=== PATIENT | male | born 1980 | race Caucasian/White ===

== ENCOUNTER 2019-12-31 12:27 | Inpatient (IN) | payer OTHER ==
[~2019-12-31] VITALS: Ht 177.8 cm; Wt 59.6 kg
[~2019-12-31 12:27] MED LIST: ACHD5005 PO; ALPR.25T GT; ALPR0.25 PO; ALPR0.254 PO; AZIT250T PO; CEPH500C PO; Citalopram Hydrobromide PO; HYDR-34 PO; HYDR-3816 PO; HYDR-4226 PO; IBP800T PO; IBUP-15 PO; LVF500T PO; NFPRILOC40 PO; NICO1PAT16 TD; NICO1PAT6 TD; SULF1TAB35 PO
[2019-12-31] MEDS ORDERED: HYDROcodone/APAP 5 MG/325 MG (LORTAB) TAB PO ONE (12:45)
[2019-12-31] MEDS ORDERED: cefTRIAXone FOR IV USE 1,000 MG in WATER (STERILE) FOR INJECTION 10 ML IV ONE (12:45)
[2019-12-31] MEDS ORDERED: KETOROLAC 30 MG/ML VIAL IVP ONE (12:45)
[2019-12-31] MEDS ORDERED: SULF1TAB35 PO (12:46)
[2019-12-31] MEDS ORDERED: HYDR-4226 PO (12:46)
--- NOTE | 2019-12-31 12:47 | ED GU-Male ---
General Chief Complaint: Male Reproductive Stated Complaint: ABD PAIN Source: patient Exam Limitations: no limitations History of Present Illness Date Seen by Provider: Dec 31, 2019 Time Seen by Provider: 12:41 Initial Comments To ER accompanied by his mom with reports of right testicular pain that he awakened with this morning, the pain radiates up into the abdomen. No injury no fever no chills. Timing/Duration: just prior to arrival Severity/Quality: moderate Location: scrotal Radiation: none Activities at Onset: none Prior Genitourinary Problems: none Allergies and Home Medications Allergies Coded Allergies: No Known Drug Allergies (Unverified , 12/02/14) Home Medications Alprazolam 0.25 Mg Tablet, 0.25 MG PO Q8H PRN for ANXIETY, (Reported) Alprazolam 0.25 Mg Tablet, 0.25 MG PO Q8H PRN for ANXIETY Prescribed by: ZAFAR CRENSHAW on 06/22/181916 Azithromycin 250 Mg Tablet, 250 MG PO UD TAKE 2 TABLETS TODAY, THEN TAKE 1 TABLET DAILY FOR 4 MORE DAYS Prescribed by: JUNE AVERY on 07/18/162146 Hydrocodone Bit/Acetaminophen 1 Each Tablet, 1 EACH PO Q4H PRN for PAIN Prescribed by: GAYLE EDMONDSON on 10/05/15 133 Hydrocodone/Acetaminophen 1 Each Tablet, 1 EACH PO Q4H Prescribed by: JUNE AVERY on 07/18/162146 Hydrocodone/Acetaminophen 1 Each Tablet, 1 TAB PO Q4-6HR Do not fill unless Bactrim is also filled Prescribed by: JUNE AVERY on 12/31/19 124 Ibuprofen 800 Mg Tab, 800 MG PO TID PRN for PAIN Prescribed by: CRESENCIO DOVE on 12/12/14913 Nicotine 1 Each Patch.td24, 21 MG TD DAILY, (Reported) Sulfamethoxazole/Trimethoprim 1 Each Tablet, 1 EACH PO BID Prescribed by: GAYLE EDMONDSON on 10/05/15 1332 Sulfamethoxazole/Trimethoprim 1 Each Tablet, 1 EACH PO BID Prescribed by: JUNE AVERY on 12/31/19 1246 [Citalopram Hydrobromide] 20 MG TAB, 20 MG PO DAILY Prescribed by: CRESENCIO DOVE on 12/12/14913 Patient Home Medication List Home Medication List Reviewed: Yes Review of Systems Review of Systems Constitutional: see HPI EENTM: see HPI Respiratory: no symptoms reported Cardiovascular: no symptoms reported Genitourinary: see HPI Musculoskeletal: no symptoms reported Skin: no symptoms reported Psychiatric/Neurological: No Symptoms Reported Endocrine: No Symptoms Reported Hematologic/Lymphatic: No Symptoms Reported Past Wkduzzi-Zrlpni-Ltuwsd Hx Patient Social History Type Used: Cigarettes 2nd Hand Smoke Exposure: Yes Recent Foreign Travel: No Contact w/Someone Who Travel: No Recent Hopitalizations: No Immunizations Up To Date Tetanus Booster (TDap): Unknown Date of Influenza Vaccine: Dec 02, 2014 Past Medical History Surgeries: Yes (chest tube) Orthopedic Respiratory: Yes Asthma, Pneumonia Cardiac: No Neurological: No Reproductive Disorders: No Sexually Transmitted Disease: No HIV/AIDS: No Gastrointestinal: No Musculoskeletal: No Endocrine: No Loss of Vision: Denies Hearing Impairment: Hard of Hearing Cancer: No Psychosocial: Yes ADD/ADHD, Sleep Difficulties, Bipolar Integumentary: Yes Eczema Blood Disorders: No Adverse Reaction/Blood Tranf: No Family Medical History Alcoholism Alzheimer's disease Grandparents (Maternal Grandmother) Arthritis 19 MOTHER Grandparents (Maternal Grandmother) Asthma 19 MOTHER Cardiovascular disease Grandparents (Maternal Grandfather-Heart disease) Cataracts Grandparents (Paternal Grandmother Maternal Grandfather) Congenital heart disease 19 MOTHER (Woolfe-Parkinson White Syndrome- Congenital Heart Disease) FH: Crohn's disease 19 MOTHER FH: sleep apnea 19 FATHER Glaucoma 19 MOTHER Grandparents (Maternal Grandfather) Headache disorder G8 SISTER (Migraines) Hypertension 19 MOTHER G8 SISTER Myocardial infarction Grandparents (Maternal Grandfather Paternal Grandfather-) Not obtainable due to adoption Grandparents (Maternal Grandmother) Osteoporosis 19 MOTHER Prostate cancer Grandparents (Maternal Grandfather) Psychosocial problem 19 MOTHER (Bipolal Anxiety) Thyroid disease 19 MOTHER (Hypothyroid) No Family History of: AIDS Abdominal aortic aneurysm Calhoun's disease Aphasia Cancer of mouth Colon cancer Completed stroke Congenital disease Coronary thrombosis Cystic fibrosis Deafness or hearing loss Dementia Diabetes mellitus Drug abuse Dysphasia Fibrocystic disease of breast Gastroenteritis Hypercholesterolemia Infertility Kidney disease Neoplasm Parkinson's disease Respiratory disorder Seizure disorder Severe allergy Tuberculosis Visual disorder No Pertinent Family Hx Physical Exam Vital Signs Vital Signs - First Documented 12/31/19 12:37 Temp 36.1 Pulse 98 Resp 20 B/P (MAP) 132/82 (99) Pulse Ox 100 O2 Delivery Room Air Capillary Refill : Height, Weight, BMI Height: 5'9.00" Weight: 109lbs. 6.0oz. [id number]; BMI Method:Stated General Appearance: WD/WN, no apparent distress Neck: non-tender, full range of motion Respiratory: no respiratory distress Gastrointestinal: normal bowel sounds, non tender, soft Male: erythema, testicular tenderness (significant swelling enlargement and tenderness to the right testicle/right side of the scrotum, the left testicle is normal in size and nontender.) Extremities: normal range of motion, non-tender Neurologic/Psychiatric: alert, normal mood/affect, oriented x 3 Skin: normal color, warm/dry Progress/Results/Core Measures Suspected Sepsis SIRS Temperature: Pulse: Respiratory Rate: Laboratory Tests 12/31/19 12:55: White Blood Count 25.2H Blood Pressure / Mean: Laboratory Tests 12/31/19 12:55: Creatinine 1.17, Platelet Count 282 Results/Orders Lab Results Laboratory Tests Test 12/31/19 12:55 Range/Units White Blood Count 25.2 H 4.3-11.0 10^3/uL Red Blood Count 5.25 4.35-5.85 10^6/uL Hemoglobin 15.3 13.3-17.7 G/DL Hematocrit 45 40-54 % Mean Corpuscular Volume 87 80-99 FL Mean Corpuscular Hemoglobin 29 25-34 PG Mean Corpuscular Hemoglobin Concent 34 32-36 G/DL Red Cell Distribution Width 13.5 10.0-14.5 % Platelet Count 282 130-400 10^3/uL Mean Platelet Volume 9.6 7.4-10.4 FL Neutrophils (%) (Auto) 93 H 42-75 % Lymphocytes (%) (Auto) 2 L 12-44 % Monocytes (%) (Auto) 3 0-12 % Eosinophils (%) (Auto) 3 0-10 % Basophils (%) (Auto) 0 0-10 % Neutrophils # (Auto) 23.4 H 1.8-7.8 X 10^3 Lymphocytes # (Auto) 0.4 L 1.0-4.0 X 10^3 Monocytes # (Auto) 0.8 0.0-1.0 X 10^3 Eosinophils # (Auto) 0.6 H 0.0-0.3 10^3/uL Basophils # (Auto) 0.0 0.0-0.1 10^3/uL Neutrophils % (Manual) 71 % Lymphocytes % (Manual) 1 % Monocytes % (Manual) 2 % Eosinophils % (Manual) 0 % Basophils % (Manual) 0 % Band Neutrophils 26 % Blood Morphology Comment NORMAL Sodium Level 135 135-145 MMOL/L Potassium Level 3.9 3.6-5.0 MMOL/L Chloride Level 97 L 98-107 MMOL/L Carbon Dioxide Level 24 21-32 MMOL/L Anion Gap 14 5-14 MMOL/L Blood Urea Nitrogen 15 7-18 MG/DL Creatinine 1.17 0.60-1.30 MG/DL Estimat Glomerular Filtration Rate > 60 BUN/Creatinine Ratio 13 Glucose Level 122 H 70-105 MG/DL Calcium Level 10.3 H 8.5-10.1 MG/DL My Orders Orders - JUNE AVERY APRN Chlamydia Trachomatis Urine (12/31/19 12:39) Neis Donn Dna Urine Test (12/31/19 12:39) Cbc With Automated Diff (12/31/19 12:39) Basic Metabolic Panel (12/31/19 12:39) Ed Iv/Invasive Line Start (12/31/19 12:39) Us Scrotum (Testicle) [id number] (12/31/19 12:39) Ketorolac Injection (Toradol Injection) (12/31/19 12:45) Ceftriaxone For Iv Use (Rocephin For I (12/31/19 12:45) Azithromycin Tablet (Zithromax Tablet) (01/01/20 09:00) Hydrocodone/Apap 5/325 Tablet (Lortab 5 (12/31/19 12:45) Ua Culture If Indicated (12/31/19 12:48) Manual Differential (12/31/19 12:55) Azithromycin Tablet (Zithromax Tablet) (12/31/19 13:16) Blood Culture (12/31/19 13:23) Ns Iv 1000 Ml (Sodium Chloride 0.9%) (12/31/19 13:45) Medications Given in ED Current Medications Medications Dose Ordered Sig/Hima Route Start Time Stop Time Status Last Admin Dose Admin Acetaminophen/ Hydrocodone Bitart 1 tab ONCE ONCE PO 12/31/19 12:45 12/31/19 12:46 DC 12/31/19 12:58 1 TAB Ceftriaxone Sodium 1000 mg/ Sterile Water 10 ml @ 200 mls/hr ONCE ONCE IV 12/31/19 12:45 12/31/19 12:47 DC 12/31/19 13:33 200 MLS/HR Ketorolac Tromethamine 15 mg ONCE ONCE IVP 12/31/19 12:45 12/31/19 12:46 DC 12/31/19 12:58 15 MG Vital Signs/I&O 12/31/19 12/31/19 12/31/19 12:37 12:58 12:58 Temp 36.1 36.1 36.1 Pulse 98 Resp 20 B/P (MAP) 132/82 (99) Pulse Ox 100 O2 Delivery Room Air Capillary Refill : Departure Communication (Admissions) Time/Spoke to Admitting Phy: 13:[address] King, agrees to admit. He did receive Zithromax 1 g here in addition to the Rocephin. Time/Spoke to Consulting Phy: 13:[address] Flanagan, agrees with admission, he'll consult. We'll do Rocephin and vancomycin, scrotal support, ice pack to the scrotum, bedrest with bathroom privileges, pain control. NAME: ELLIOT CISNEROS [facility] REC#: [id number] PT STATUS: REG ER : 1980 PHYSICIAN: JUNE AVERY APRN ADMIT DATE: 12/31/19/ER Draft Date of Exam:12/31/19 US SCROTUM (Testicle) [id number] PROCEDURE: US Scrotum. TECHNIQUE: Multiple real-time grayscale images were obtained over the scrotum in various projections bilaterally. INDICATION: Pain and swelling. COMPARISON: There are no prior studies available for comparison. Spectral color-flow imaging of the testicles was also performed. Both testicles were identified. The right testicle measures 4.2 x 3.1 x 3.3 cm while the left testicle was estimated to be 4.1 x 2.0 x 2.3 cm. There is no evidence for a solid testicular mass or for torsion. However the epididymis on the right does seem prominent and somewhat hyperemic. This appearance does raise the question of epididymitis. The left epididymis is unremarkable. There is also a small slightly complicated hydrocele on the right. There is no evidence for hydrocele formation on the left. There is no sign of a varicocele. IMPRESSION: 1. There is no evidence for a solid testicular mass or for torsion. 2. The appearance of the epididymis on the right does suggest epididymitis. Clinical follow-up is recommended. 3. There is a small slightly complicated hydrocele on the right as well. Dictated on workstation # [id number] Dict: 12/31/19 1329 Trans: 12/31/19 1337 [facility] [id number] Interpreted by: ELIAS ALONZO MD Electronically signed by: Impression Primary Impression: Epididymoorchitis Disposition: ADMITTED INPATIENT Condition: Stable Admissions Decision to Admit Reason: Admit from ER (General) Decision to Admit/Date: Dec 31, 2019 Time/Decision to Admit Time: 13:42 Departure-Patient Inst. Decision time for Depature: 12:44 Referrals: [facility] [place] Primary Care Physician BRYANT FLANAGAN MD Patient Instructions: Epididymitis Add. Discharge Instructions: 1. Elevate the scrotum as much as possible this will help with pain. Reduced physical activity. Ice pack to the scrotum as much as possible. Anti- inflammatories as directed. Pain medication as directed. Antibiotics as directed. Follow-up with your doctor next week or Dr. Flanagan next week for recheck. This will take a few days before significant improvement is noticed. All discharge instructions reviewed with patient and/or family. Voiced understanding. Scripts Hydrocodone/Acetaminophen (Plessis 5-325 Tablet) 1 Each Tablet 1 TAB PO Q4-6HR for Pain MDD 10 TABS for 7 Days, #20 TAB Do not fill unless Bactrim is also filled Prov: JUNE AVERY APRN 12/31/19 Sulfamethoxazole/Trimethoprim (Bactrim Ds Tablet) 1 Each Tablet 1 EACH PO BID, #20 TAB Prov: JUNE AVERY APRN 12/31/19 Work/School Note: Work Release Form Date Seen in the Emergency Department: Jan 06, 2020 Return to Work: Dec 31, 2019 JUNE AVERY APRN Dec 31, 2019 12:47
[2019-12-31 13:00] LABS: BASOPHILS % (AUTO) 0 % (0-10); EOSINOPHILS # (AUTO) 0.6 10^3/uL (0.0-0.3); EOSINOPHILS % (AUTO) 3 % (0-10); HEMATOCRIT 45 % (40-54); HEMOGLOBIN 15.3 G/DL (13.3-17.7); LYMPHOCYTES # (AUTO) 0.4 X 10^3 (1.0-4.0); LYMPHOCYTES % (AUTO) 2 % (12-44); MEAN CORPUSCULAR HEMOGLOBIN 29 PG (25-34); MEAN CORPUSCULAR HGB CONC 34 G/DL (32-36); MEAN CORPUSCULAR VOLUME 87 FL (80-99); MEAN PLATELET VOLUME 9.6 FL (7.4-10.4); MONOCYTES # (AUTO) 0.8 X 10^3 (0.0-1.0); MONOCYTES % (AUTO) 3 % (0-12); NEUTROPHILS # (AUTO) 23.4 X 10^3 (1.8-7.8); NEUTROPHILS % (AUTO) 93 % (42-75); PLATELET COUNT 282 10^3/uL (130-400); RED CELL DISTRIBUTION WIDTH 13.5 % (10.0-14.5); WHITE BLOOD COUNT 25.2 10^3/uL (4.3-11.0)
[2019-12-31] MEDS ORDERED: AZITHROMYCIN 250 MG TAB (ZITHROMAX) PO ONE (13:16)
[2019-12-31 13:18] LABS: BUN/CREATININE RATIO 13; CALCIUM 10.3 MG/DL (8.5-10.1); CARBON DIOXIDE 24 MMOL/L (21-32); CHLORIDE 97 MMOL/L (98-107); CREATININE SERUM 1.17 MG/DL (0.60-1.30); GFR ESTIMATED > 60; GLUCOSE 122 MG/DL (70-105); POTASSIUM 3.9 MMOL/L (3.6-5.0); SODIUM 135 MMOL/L (135-145)
[2019-12-31 13:19] LABS: BAND NEUTROPHILS 26 %; BASOPHILS % (MANUAL) 0 %; EOSINOPHILS % (MANUAL) 0 %; LYMPHOCYTES % (MANUAL) 1 %; MONOCYTES % (MANUAL) 2 %; NEUTROPHILS % (MANUAL) 71 %; RBC MORPH NORMAL
--- NOTE | 2019-12-31 13:38 | Diagnostic Imaging Report ---
PROCEDURE: US Scrotum. TECHNIQUE: Multiple real-time grayscale images were obtained over the scrotum in various projections bilaterally. INDICATION: Pain and swelling. COMPARISON: There are no prior studies available for comparison. Spectral color-flow imaging of the testicles was also performed. Both testicles were identified. The right testicle measures 4.2 x 3.1 x 3.3 cm while the left testicle was estimated to be 4.1 x 2.0 x 2.3 cm. There is no evidence for a solid testicular mass or for torsion. However the epididymis on the right does seem prominent and somewhat hyperemic. This appearance does raise the question of epididymitis. The left epididymis is unremarkable. There is also a small slightly complicated hydrocele on the right. There is no evidence for hydrocele formation on the left. There is no sign of a varicocele. IMPRESSION: 1. There is no evidence for a solid testicular mass or for torsion. 2. The appearance of the epididymis on the right does suggest epididymitis. Clinical follow-up is recommended. 3. There is a small slightly complicated hydrocele on the right as well. Dictated by: Dictated on workstation # [id number]
[2019-12-31] MEDS ORDERED: NS IV 1000 ML 1,000 ML IV SCH (13:45)
[2019-12-31] MEDS ORDERED: ONDANSETRON 4 MG/2 ML (SDV) Z0FRAN IV PRN (14:30)
[2019-12-31] MEDS ORDERED: VANCOMYCIN 1250 MG/NS 250 ML IVPB IV NR ×2 (14:30)
[2019-12-31 14:44] VITALS: BP 117/82
--- NOTE | 2019-12-31 14:50 | NUR ---
ELLIOT CISNEROS admitted to room 433-1, with an admitting diagnosis of R EPIDIDYMITIS, LEUKOCYTOSIS, on 12/31/19 from ER via W/C, accompanied by MOTHER.ELLIOT CISNEROS introduced to surroundings, call light, bed controls, phone, TV, temperature control, lights, meal times, smoking policy, visitor policy, side rail policy, bathrooms and showers. Patient Rights given to patient in the handbook. ELLIOT CISNEROS verbalizes understanding that [facility] is not responsible for the loss or damage to any personal effects or valuables that are kept in the patients posession during their hospitalization. The following Patient Care Plans were discussed with the PT: Discharge Planning, INFECTION, HYPOTHERMIA, HIGH RISK FL DIFICIT, AND PAIN. ELLIOT CISNEROS verbalizes understanding of Interdisciplinary Patient Education. Patient and/or family were informed about the Rapid Response Team and its purpose. CAME TO FLOOR [facility] ER WITH LEILA PELAYO RUNNING IN R AC ----
[2019-12-31] MEDS ORDERED: ARIP1064 IM (14:59)
[2019-12-31] MEDS: LACTATED RINGERS 1,000 ML IV SCH (15:14)
[2019-12-31 15:42] LABS: BILIRUBIN,URINE NEGATIVE (NEGATIVE); CLARITY,URINE SL CLOUDY; COLOR,URINE YELLOW; GLUCOSE, URINE (UA) NEGATIVE (NEGATIVE); KETONES,URINE 1+ (NEGATIVE); LEUKOCYTE ESTERASE ,URINE 2+ (NEGATIVE); NITRITE,URINE NEGATIVE (NEGATIVE); PH,URINE 5.5 (5-9); PROTEIN,URINE 1+ (NEGATIVE)
[2019-12-31 16:00] LABS: RBC,URINE 0-2 /HPF
[2019-12-31 16:01] LABS: AMORPHOUS SEDIMENT,UR FEW AMOR URATES /LPF; BACTERIA,URINE FEW /HPF
[2019-12-31 16:59] VITALS: BP 106/85
[2019-12-31] MEDS: KETOROLAC 15 MG/ML VIAL IV PRN (18:06)
[2019-12-31] MEDS: DOCUSATE SODIUM 100 MG (COLACE) CAP PO SCH (19:46)
[2019-12-31] MEDS: HYDROcodone/APAP 5 MG/325 MG (LORTAB) TAB PO PRN (19:48)
[2019-12-31 21:15] VITALS: BP 99/58
--- NOTE | 2019-12-31 21:29 | NUR ---
DR LAFLEUR NOTIFIED ABOUT PT'S TEMPERATURE OF 101.8. NEW ORDERS RECEIVED OF TYLENOL 1000MG PO TID PRN
[2019-12-31] MEDS ORDERED: ACETAMINOPHEN 500 MG TAB (TYLENOL) ONE (21:35)
[2019-12-31] MEDS: ACETAMINOPHEN 500 MG TAB (TYLENOL) PO PRN (21:43)
[2019-12-31 23:30] VITALS: BP 93/62
[2020-01-01] VITALS (19 sets, daily range): BP systolic 77–108; BP diastolic 48–73
[2020-01-01] MEDS: LACTATED RINGERS 1,000 ML IV SCH ×4 (00:13→15:15)
[2020-01-01] MEDS ORDERED: VANCOMYCIN INJECTION 1,000 MG in NS (IVPB) 250 ML IV SCH (03:00)
[2020-01-01 04:56] LABS: BASOPHILS % (AUTO) 0 % (0-10); EOSINOPHILS # (AUTO) 0.2 10^3/uL (0.0-0.3); EOSINOPHILS % (AUTO) 1 % (0-10); HEMATOCRIT 39 % (40-54); HEMOGLOBIN 13.5 G/DL (13.3-17.7); LYMPHOCYTES % (AUTO) 3 % (12-44); MEAN CORPUSCULAR HEMOGLOBIN 30 PG (25-34); MEAN CORPUSCULAR HGB CONC 34 G/DL (32-36); MEAN CORPUSCULAR VOLUME 88 FL (80-99); MEAN PLATELET VOLUME 9.3 FL (7.4-10.4); MONOCYTES # (AUTO) 1.8 X 10^3 (0.0-1.0); MONOCYTES % (AUTO) 6 % (0-12); NEUTROPHILS % (AUTO) 90 % (42-75); PLATELET COUNT 223 10^3/uL (130-400); RED CELL DISTRIBUTION WIDTH 13.6 % (10.0-14.5); WHITE BLOOD COUNT 28.9 10^3/uL (4.3-11.0)
[2020-01-01 05:21] LABS: ALANINE AMINOTRANSFERASE 15 U/L (0-55); ALBUMIN 3.2 GM/DL (3.2-4.5); ALKALINE PHOSPHATASE 101 U/L (40-136); BILIRUBIN,TOTAL 0.8 MG/DL (0.1-1.0); BUN/CREATININE RATIO 12; CALCIUM 8.7 MG/DL (8.5-10.1); CARBON DIOXIDE 21 MMOL/L (21-32); CHLORIDE 104 MMOL/L (98-107); CREATININE SERUM 0.91 MG/DL (0.60-1.30); GFR ESTIMATED > 60; GLUCOSE 113 MG/DL (70-105); POTASSIUM 4.4 MMOL/L (3.6-5.0); SODIUM 135 MMOL/L (135-145); TOTAL PROTEIN 6.1 GM/DL (6.4-8.2)
--- NOTE | 2020-01-01 06:48 | NUR ---
DR LAFLEUR NOTIFIED OF PT'S B/P 77/53. NEW ORDERS RECEIVED TO BOLUS 1 LITER LR, THEN TO CONTINUE AT A RATE TO 200 MLS/HR. DR ALSO ADDED ORDER FOR LACTIC ACID NOW. INSTRUCTED TO NOTIFY OF ELEVATED LACTIC ACID AND/OR NO IMPROVEMENT IN B/P.
[2020-01-01] MEDS ORDERED: LACTATED RINGERS 1,000 ML IV ONE (07:00)
[2020-01-01] MEDS: ENOXAPARIN 30 MG/0.3 ML (LOVENOX) SYR SC SCH (07:05)
--- NOTE | 2020-01-01 08:54 | History & Physical ---
HPI History of Present Illness: 39 yo male notes that he had onset of pain "down there" a day ago. He does not believe he had fever prior to admission. He does note he fell the day before and wonders if that contributed. He states he was last sexually activity 2-3 months ago and has sex with women only and is unable to give a number of partners. He has chronic chest pain since having an accident that led to hemothorax and rib removal. Date seen by provider: Jan 01, 2020 Time Seen by Provider: 08:54 Attending Physician Jorge Alberto King MD [place] [place] Consult Date of Admission Dec 31, 2019 at 13:40 Home Medications Home Medications Reviewed patient Home Medication Reconciliation performed by pharmacy medication reconciliations farm equipment service technician and/or nursing. Patients Allergies have been reviewed. Allergies Coded Allergies: No Known Drug Allergies (Unverified , 12/02/14) GFJ-Qvslvi-Fzwxiz Hx Patient Social History Alcohol Use: Occasionally Uses Recreational Drug Use: No Smoking Status: Current Everyday Smoker Type Used: Cigarettes 2nd Hand Smoke Exposure: Yes Recent Foreign Travel: No Contact w/other who traveled: No Recent Hopitalizations: No Recent Infectious Disease Expo: No Physical Abuse Screen: No Sexual Abuse: No Immunizations Up To Date Tetanus Booster (TDap): Unknown Date of Influenza Vaccine: Dec 02, 2014 Past Medical History PMHx: Schizophrenia SurgHx: Rib removal after hemo/pneumothorax after work accident Family Medical History Significant Family History: No Pertinent Family Hx Family History: Alcoholism Alzheimer's disease Grandparents (Maternal Grandmother) Arthritis 19 MOTHER Grandparents (Maternal Grandmother) Asthma 19 MOTHER Cardiovascular disease Grandparents (Maternal Grandfather-Heart disease) Cataracts Grandparents (Paternal Grandmother Maternal Grandfather) Congenital heart disease 19 MOTHER (Woolfe-Parkinson White Syndrome- Congenital Heart Disease) FH: Crohn's disease 19 MOTHER FH: sleep apnea 19 FATHER Glaucoma 19 MOTHER Grandparents (Maternal Grandfather) Headache disorder G8 SISTER (Migraines) Hypertension 19 MOTHER G8 SISTER Myocardial infarction Grandparents (Maternal Grandfather Paternal Grandfather-) Not obtainable due to adoption Grandparents (Maternal Grandmother) Osteoporosis 19 MOTHER Prostate cancer Grandparents (Maternal Grandfather) Psychosocial problem 19 MOTHER (Bipolal Anxiety) Thyroid disease 19 MOTHER (Hypothyroid) No Family History of: AIDS Abdominal aortic aneurysm Waterford's disease Aphasia Cancer of mouth Colon cancer Completed stroke Congenital disease Coronary thrombosis Cystic fibrosis Deafness or hearing loss Dementia Diabetes mellitus Drug abuse Dysphasia Fibrocystic disease of breast Gastroenteritis Hypercholesterolemia Infertility Kidney disease Neoplasm Parkinson's disease Respiratory disorder Seizure disorder Severe allergy Tuberculosis Visual disorder Review of Systems ([facility]) Constitutional: see HPI Respiratory: No short of breath Cardiovascular: chest pain (chronic since surgery) Gastrointestinal: abdominal pain; No constipation, No diarrhea, No nausea, No vomiting Genitourinary: No dysuria; hematuria (x2 weeks intermitent) Skin: No rash Reviewed Test Results Reviewed Test Results Lab Laboratory Tests Test 12/31/19 12:55 12/31/19 15:30 01/01/20 04:31 01/01/20 07:00 Range/Units White Blood Count 25.2 H 28.9 H 4.3-11.0 10^3/uL Red Blood Count 5.25 4.48 4.35-5.85 10^6/uL Hemoglobin 15.3 13.5 13.3-17.7 G/DL Hematocrit 45 39 L 40-54 % Mean Corpuscular Volume 87 88 80-99 FL Mean Corpuscular Hemoglobin 29 30 25-34 PG Mean Corpuscular Hemoglobin Concent 34 34 32-36 G/DL Red Cell Distribution Width 13.5 13.6 10.0-14.5 % Platelet Count 282 223 130-400 10^3/uL Mean Platelet Volume 9.6 9.3 7.4-10.4 FL Neutrophils (%) (Auto) 93 H 90 H 42-75 % Lymphocytes (%) (Auto) 2 L 3 L 12-44 % Monocytes (%) (Auto) 3 6 0-12 % Eosinophils (%) (Auto) 3 1 0-10 % Basophils (%) (Auto) 0 0 0-10 % Neutrophils # (Auto) 23.4 H 26.0 H 1.8-7.8 X 10^3 Lymphocytes # (Auto) 0.4 L 1.0 1.0-4.0 X 10^3 Monocytes # (Auto) 0.8 1.8 H 0.0-1.0 X 10^3 Eosinophils # (Auto) 0.6 H 0.2 0.0-0.3 10^3/uL Basophils # (Auto) 0.0 0.0 0.0-0.1 10^3/uL Neutrophils % (Manual) 71 % Lymphocytes % (Manual) 1 % Monocytes % (Manual) 2 % Eosinophils % (Manual) 0 % Basophils % (Manual) 0 % Band Neutrophils 26 % Blood Morphology Comment NORMAL Sodium Level 135 135 135-145 MMOL/L Potassium Level 3.9 4.4 3.6-5.0 MMOL/L Chloride Level 97 L 104 98-107 MMOL/L Carbon Dioxide Level 24 21 21-32 MMOL/L Anion Gap 14 10 5-14 MMOL/L Blood Urea Nitrogen 15 11 7-18 MG/DL Creatinine 1.17 0.91 0.60-1.30 MG/DL Estimat Glomerular Filtration Rate > 60 > 60 BUN/Creatinine Ratio 13 12 Glucose Level 122 H 113 H 70-105 MG/DL Calcium Level 10.3 H 8.7 8.5-10.1 MG/DL Urine Color YELLOW Urine Clarity SL CLOUDY Urine pH 5.5 5-9 Urine Specific [place] 1.025 H 1.016-1.022 Urine Protein 1+ H NEGATIVE Urine Glucose (UA) NEGATIVE NEGATIVE Urine Ketones 1+ H NEGATIVE Urine Nitrite NEGATIVE NEGATIVE Urine Bilirubin NEGATIVE NEGATIVE Urine Urobilinogen 0.2 < = 1.0 MG/DL Urine Leukocyte Esterase 2+ H NEGATIVE Urine RBC (Auto) TRACE-L NEGATIVE Urine RBC 0-2 /HPF Urine WBC 10-25 H /HPF Urine Crystals PRESENT H /LPF Urine Amorphous Sediment FEW CRISELDA URATES H /LPF Urine Bacteria FEW H /HPF Urine Casts NONE /LPF Urine Mucus SMALL H /LPF Urine Culture Indicated YES Corrected Calcium 9.3 8.5-10.1 MG/DL Total Bilirubin 0.8 0.1-1.0 MG/DL Aspartate Amino Transf (AST/SGOT) 20 5-34 U/L Alanine Aminotransferase (ALT/SGPT) 15 0-55 U/L Alkaline Phosphatase 101 40-136 U/L Total Protein 6.1 L 6.4-8.2 GM/DL Albumin 3.2 3.2-4.5 GM/DL Lactic Acid Level 1.41 0.50-2.00 MMOL/L Test 01/01/20 14:05 Range/Units Vancomycin Level Trough 10.1 10.0-20.0 UG/ML Radiology US: IMPRESSION: 1. There is no evidence for a solid testicular mass or for torsion. 2. The appearance of the epididymis on the right does suggest epididymitis. Clinical follow-up is recommended. 3. There is a small slightly complicated hydrocele on the right as well. Physical Exam-([facility]) Physical Exam Vital Signs VS - Last 72 Hours, by Label 12/31/19 12/31/19 12/31/19 12/31/19 12:37 12:58 12:58 14:08 Temp 36.1 36.1 36.1 36.1 Pulse 98 88 Resp 20 18 B/P (MAP) 132/82 (99) 115/77 (99) Pulse Ox 100 99 O2 Delivery Room Air Room Air 12/31/19 12/31/19 12/31/19 12/31/19 14:10 14:10 14:44 16:59 Temp 37.1 37.1 37.5 Pulse 95 86 Resp 20 22 B/P (MAP) 117/82 106/85 (92) Pulse Ox 98 98 96 O2 Delivery Room Air Room Air Room Air 12/31/19 12/31/19 12/31/19 12/31/19 18:06 19:50 21:15 21:43 Temp 37.1 38.8 38.8 Pulse 107 Resp 22 B/P (MAP) 99/58 (72) Pulse Ox 96 96 O2 Delivery Room Air Room Air 12/31/19 12/31/19 12/31/19 01/01/20 22:13 22:32 23:30 04:00 Temp 37.2 37.2 37.0 36.4 Pulse 101 98 Resp 16 18 B/P (MAP) 93/62 (72) 85/56 (66) Pulse Ox 96 97 O2 Delivery Room Air Room Air 01/01/20 01/01/20 01/01/20 08:00 08:00 12:00 Temp 36.8 36.8 Pulse 85 84 Resp 18 18 B/P (MAP) 83/60 (68) 84/55 (65) Pulse Ox 98 98 98 O2 Delivery Room Air Room Air Room Air Capillary Refill : Less Than 3 Seconds General Appearance: WD/WN, no apparent distress Respiratory: lungs clear, normal breath sounds Cardiovascular: no murmur, tachycardia Gastrointestinal: normal bowel sounds, non tender, soft; No distended Genital/Rectal: other (erythematous, indurated and enlarged right scrotum, no penile discharge, no skin lesions noted) Extremities: no pedal edema Neurologic/Psychiatric: alert Skin: normal color, warm/dry Assessment/Plan Assessment/Plan Admission Status: Inpatient Order (span 2 midnights) Reason for Inpatient Admission: Sepsis (1) Sepsis Status: Acute Assessment & Plan: Secondary to epididymitis, febrile, leukocytosis, tachycardic. No lactic acidosis or end organ dysfunction. IVF, ceftriaxone and vancomycin. (2) Epididymoorchitis Status: Acute Assessment & Plan: Antibiotics as above, scrotal support. Urology consulted, appreciate recommendations. (3) Schizophrenia Status: Chronic (4) DVT prophylaxis Status: Acute Assessment & Plan: Enoxaparin Clinical Quality Measures DVT/VTE Risk/Contraindication: Risk Factor Score Per Nursin RFS Level Per Nursing on Admit: 3=High JORGE ALBERTO KING MD Jan 01, 2020 08:54
[2020-01-01] MEDS ORDERED: cefTRIAXone 1,000 MG/SWFI 10 ML IV PUSH IV SCH ×2 (09:00)
[2020-01-01] MEDS ORDERED: AZITHROMYCIN 250 MG TAB (ZITHROMAX) PO SCH (09:00)
[2020-01-01] MEDS: DOCUSATE SODIUM 100 MG (COLACE) CAP PO SCH ×2 (09:11→21:02)
[2020-01-01] MEDS ORDERED: POTA2TAB5 PO (09:19)
[2020-01-01] MEDS ORDERED: NAPR500T8 PO (09:29)
[2020-01-01] MEDS ORDERED: CETI10TA21 PO (09:29)
[2020-01-01] MEDS ORDERED: FLUT9.9S NS (09:29)
[2020-01-01] MEDS ORDERED: ARIP1064 IM (09:31)
--- NOTE | 2020-01-01 09:32 | NUR ---
SPOKE WITH THE PT ( I HAD A MED LIST FAXED OVER FROM [facility] BUT THERE WAS NOTHING MAINTENANCE THAT HE TAKES) AND SPOKE WITH THE OFFICE TO COMPLETE THE MED REC. ARISTADA INJECTION WAS GIVEN 11-12-2019 [facility] THOUGHT HE WAS TAKING BUSPAR AND BUTALBITAL BUT NO PHARMACY HAS FILLED- I LEFT A MESSAGE FOR [facility] TO CHECK IF THESE WERE DISCONTINUED. WILL UPDATE MED REC AND NOTES IF NEEDED. OTC MEDS: POTASSIUM
--- NOTE | 2020-01-01 10:25 | CONSULTATION REPORT ---
DATE OF SERVICE: 01/01/2020 ATTENDING PHYSICIAN: Dr. King. SUMMARY: A 39-year-old white man admitted to the emergency room with severe right acute epididymo-orchitis confirmed by ultrasound. No other abnormality and no abscess. The patient says that this started a day ago, which I doubt because it is pretty significant and has been cooking for more than one day. His white count was 28.9% and according to the ER staff, he was not very compliant or reliable, so I admitted him for rest and IV antibiotics. I recommended Rocephin and vancomycin and follow him clinically. On physical exam, he does indeed have an acute epididymo-orchitis, but no clinical signs of abscess formation. He is afebrile. IMPRESSION: Severe acute right epididymo-orchitis. PLAN: As above. Job ID: [id number] DocumentID: [id number] Dictated Date: 01/01/2020 09:22:30 Network Operations Technician Date: 01/01/2020 10:25:07 Dictated By: BRYANT FLANAGAN MD
[2020-01-01] MEDS ORDERED: LACTATED RINGERS 1,000 ML IV SCH (12:00)
[2020-01-01] MEDS ORDERED: TROUGH ORDER-PHARMACY XX NR (14:00)
--- NOTE | 2020-01-01 14:18 | NUR ---
Pt is listed as Baptist but declines spiritual care at this time and just wants to rest.
[2020-01-01] MEDS: VANCOMYCIN INJECTION 1,250 MG in NS (IVPB) 250 ML IV SCH (15:15)
[2020-01-01] MEDS: ACETAMINOPHEN 500 MG TAB (TYLENOL) PO PRN (15:16)
[2020-01-01] MEDS ORDERED: NS IV ONE (19:15)
[2020-01-01 19:16] LABS: BASOPHILS % (AUTO) 0 % (0-10); EOSINOPHILS # (AUTO) 0.2 10^3/uL (0.0-0.3); EOSINOPHILS % (AUTO) 1 % (0-10); HEMATOCRIT 40 % (40-54); HEMOGLOBIN 13.9 G/DL (13.3-17.7); LYMPHOCYTES # (AUTO) 0.8 X 10^3 (1.0-4.0); LYMPHOCYTES % (AUTO) 3 % (12-44); MEAN CORPUSCULAR HEMOGLOBIN 32 PG (25-34); MEAN CORPUSCULAR HGB CONC 35 G/DL (32-36); MEAN CORPUSCULAR VOLUME 92 FL (80-99); MEAN PLATELET VOLUME 9.7 FL (7.4-10.4); MONOCYTES # (AUTO) 1.1 X 10^3 (0.0-1.0); MONOCYTES % (AUTO) 4 % (0-12); NEUTROPHILS # (AUTO) 25.2 X 10^3 (1.8-7.8); NEUTROPHILS % (AUTO) 92 % (42-75); PLATELET COUNT 187 10^3/uL (130-400); RED CELL DISTRIBUTION WIDTH 13.6 % (10.0-14.5); WHITE BLOOD COUNT 27.3 10^3/uL (4.3-11.0)
[2020-01-01] MEDS ORDERED: PIPERACILLIN/TAZO 4.5 GM/NS 100 ML IV NR ×2 (19:30)
--- NOTE | 2020-01-01 19:34 | Diagnostic Imaging Report ---
INDICATION: Hypotension. Comparison made with prior study from July 18, 2016. FINDINGS: There are chronic interstitial changes present within the lungs. The diaphragms again appear flattened suggesting some air trapping. When compared to the prior examination, there is slight increased prominence of the central interstitial markings and some fluid within the minor fissure. There is no large effusion evident. There is no pneumothorax. Heart size is appropriate. Remote posttraumatic or postsurgical rib changes are noted on the right. IMPRESSION: 1. Slight interval increase in prominence of the central interstitial markings with some fluid in the minor fissure. This may reflect fluid resuscitation. There is no alveolar consolidation or significant effusion. Dictated by: Dictated on workstation # [id number]
[2020-01-01 19:36] LABS: ALANINE AMINOTRANSFERASE 12 U/L (0-55); ALBUMIN 2.9 GM/DL (3.2-4.5); ALKALINE PHOSPHATASE 94 U/L (40-136); BILIRUBIN,TOTAL 0.5 MG/DL (0.1-1.0); BUN/CREATININE RATIO 10; CALCIUM 8.6 MG/DL (8.5-10.1); CARBON DIOXIDE 22 MMOL/L (21-32); CHLORIDE 105 MMOL/L (98-107); GFR ESTIMATED > 60; GLUCOSE 194 MG/DL (70-105); POTASSIUM 3.8 MMOL/L (3.6-5.0); SODIUM 136 MMOL/L (135-145); TOTAL PROTEIN 5.4 GM/DL (6.4-8.2)
--- NOTE | 2020-01-01 20:11 | Progress Note ---
Subjective Subjective/Events-last exam Blood pressure has trended down throughout the day, but initially maintained normal heart rate and lactic acid was normal. This evening when blood pressure failed to respond to repeated fluid boluses, rechecked lactic acid which was up to 3.07, so initiated transfer to ICU for closer management. Focused Exam Sepsis Stage: Severe Sepsis Possible Source: Other (epididymitis) Lactate Level 01/01/20 07:00: Lactic Acid Level 1.41 01/01/20 18:30: Lactic Acid Level 3.07*H Time of Focused Exam: 20:09 Respiratory: No Accessory Muscle Use, No Respiratory Distress, Rales (faint rales at right base) Cardiovascular: Regular Rate, Rhythm, No Edema, No Murmur, Normal Peripheral Pulses Capillary Refill: Less Than 3 Seconds Peripheral Pulses: 2+ Dorsalis Pedis (R), 2+ Left Dors-Pedis (L), 2+ Radial Pulses (R), 2+ Radial Pulses (L) Skin: normal color, warm/dry; No diaphoresis, No pallor Lactic Acid Level Laboratory Tests Test 01/01/20 18:30 Lactic Acid Level 3.07 MMOL/L (0.50-2.00) *H Objective Exam Last Set of Vital Signs Vital Signs Date Time Temp Pulse Resp B/P (MAP) Pulse Ox O2 Delivery O2 Flow Rate FiO2 01/01/20 16:00 36.9 86 16 89/56 (67) 97 Room Air Capillary Refill : Less Than 3 Seconds I&O Intake and Output 01/01/20 00:00 Intake Total 1650 ml Balance 1650 ml Intake Oral 950 ml IV Total 700 ml # Voids 2 Daily Weight Change No No Results/Procedures Lab Laboratory Tests 01/01/20 04:31: White Blood Count 28.9H, Red Blood Count 4.48, Hemoglobin 13.5, Hematocrit 39L, Mean Corpuscular Volume 88, Mean Corpuscular Hemoglobin 30, Mean Corpuscular Hemoglobin Concent 34, Red Cell Distribution Width 13.6, Platelet Count 223, Mean Platelet Volume 9.3, Neutrophils (%) (Auto) 90H, Lymphocytes (%) (Auto) 3L, Monocytes (%) (Auto) 6, Eosinophils (%) (Auto) 1, Basophils (%) (Auto) 0, Neutrophils # (Auto) 26.0H, Lymphocytes # (Auto) 1.0, Monocytes # (Auto) 1.8H, Eosinophils # (Auto) 0.2, Basophils # (Auto) 0.0, Sodium Level 135, Potassium Level 4.4, Chloride Level 104, Carbon Dioxide Level 21, Anion Gap 10, Blood Urea Nitrogen 11, Creatinine 0.91, Estimat Glomerular Filtration Rate > 60, BUN/Creatinine Ratio 12, Glucose Level 113H, Calcium Level 8.7, Corrected Calcium 9.3, Total Bilirubin 0.8, Aspartate Amino Transf (AST/SGOT) 20, Alanine Aminotransferase (ALT/SGPT) 15, Alkaline Phosphatase 101, Total Protein 6.1L, Albumin 3.2 01/01/20 07:00: Lactic Acid Level 1.41 01/01/20 14:05: Vancomycin Level Trough 10.1 01/01/20 18:30: White Blood Count 27.3H, Red Blood Count 4.40, Hemoglobin 13.9, Hematocrit 40, Mean Corpuscular Volume 92, Mean Corpuscular Hemoglobin 32, Mean Corpuscular Hemoglobin Concent 35, Red Cell Distribution Width 13.6, Platelet Count 187, Mean Platelet Volume 9.7, Neutrophils (%) (Auto) 92H, Lymphocytes (%) (Auto) 3L, Monocytes (%) (Auto) 4, Eosinophils (%) (Auto) 1, Basophils (%) (Auto) 0, Neutrophils # (Auto) 25.2H, Lymphocytes # (Auto) 0.8L, Monocytes # (Auto) 1.1H, Eosinophils # (Auto) 0.2, Basophils # (Auto) 0.0, Sodium Level 136, Potassium Level 3.8, Chloride Level 105, Carbon Dioxide Level 22, Anion Gap 9, Blood Urea Nitrogen 10, Creatinine 1.00, Estimat Glomerular Filtration Rate > 60, BUN/Creatinine Ratio 10, Glucose Level 194H, Calcium Level 8.6, Corrected Calcium 9.5, Total Bilirubin 0.5, Aspartate Amino Transf (AST/SGOT) 15, Alanine Aminotransferase (ALT/SGPT) 12, Alkaline Phosphatase 94, Total Protein 5.4L, Albumin 2.9L, Lactic Acid Level 3.07*H Microbiology 12/31/19 Urine Culture - Final, Complete NO GROWTH 12/31/19 Blood Culture - Preliminary, Resulted No growth Radiology US: IMPRESSION: 1. There is no evidence for a solid testicular mass or for torsion. 2. The appearance of the epididymis on the right does suggest epididymitis. Clinical follow-up is recommended. 3. There is a small slightly complicated hydrocele on the right as well. Assessment/Plan Assessment/Plan (1) Severe sepsis Status: Acute Assessment & Plan: Diagnosed at about 1850 on 12/31 with elevated lactic acid. 30 cc/kg bolus initiated, repeat CBC, CMP, transfer to ICU and central line placed due to concern for possible progression to septic shock and possible need for pressors. Broaden antibiotic to zosyn and vancomycin. CXR. Focused exam as noted, repeat lactic acid ordered to follow. (2) Sepsis Status: Acute Assessment & Plan: Secondary to epididymitis, febrile, leukocytosis, tachycardic. No lactic acidosis or end organ dysfunction on admission. IVF, c eftriaxone and vancomycin. (3) Epididymoorchitis Status: Acute Assessment & Plan: Antibiotics as above, scrotal support. Urology consulted, appreciate recommendations. (4) Schizophrenia Status: Chronic (5) DVT prophylaxis Status: Acute Assessment & Plan: Enoxaparin Clinical Quality Measures DVT/VTE Risk/Contraindication: Risk Factor Score Per Nursin RFS Level Per Nursing on Admit: 3=High JORGE ALBERTO LAFLEUR MD Jan 01, 2020 20:11
--- NOTE | 2020-01-01 20:49 | Diagnostic Imaging Report ---
INDICATION: Central venous catheter assessment. FINDINGS: AP view of the chest is obtained with comparison made to study of earlier in the day. There has been placement of left subclavian central venous catheter with tip projecting over the region of the junction of brachiocephalic veins. There is mild increase density in the parahilar regions which may represent mild edema or pneumonitis. No pneumothorax is identified. There is no midline shift. IMPRESSION: Central venous catheter reaches junction of innominate veins. There is mild parahilar edema and/or pneumonitis. Dictated by: Dictated on workstation # [id number]
[2020-01-01] MEDS: NOREPINEPHRINE 4 MG/250 ML 250 ML IV SCH (21:00)
[2020-01-01] MEDS: VASOPRESSIN INJECTION 20 UNIT in NORMAL SALINE 100 ML IV SCH (21:01)
[2020-01-01] MEDS: NS IV 1000 ML 1,000 ML IV SCH ×2 (21:01→23:46)
[2020-01-01] MEDS: HYDROcodone/APAP 5 MG/325 MG (LORTAB) TAB PO PRN (21:02)
[2020-01-02] VITALS (15 sets, daily range): BP systolic 87–105; BP diastolic 58–82
--- NOTE | 2020-01-02 01:01 | CONSULTATION REPORT ---
DATE OF SERVICE: 01/01/2020 ADMITTING PHYSICIAN: Rosamaria King MD HISTORY OF PRESENT ILLNESS: The patient is a 39-year-old male who reports pain and swelling in the scrotal region. He was also found to have leukocytosis with a white count in the 25,000 range. He also did have a fever of 101 yesterday. His blood pressure has been slightly low and he was transferred to the ICU for closer monitoring and potential IV pressor use. He is awake and alert and at this time, he is stable. He has had a history of right empyema requiring thoracotomy, decortication and chest tube placement approximately 5 years ago. He does have swelling and pain in the scrotal region. Ultrasound was consistent with epididymitis. PAST MEDICAL HISTORY: Bipolar disorder, schizophrenia, history of right-sided empyema, history of drug abuse. PAST SURGICAL HISTORY: Right thoracotomy and decortication. ALLERGIES: No known drug allergies. MEDICATIONS: Aripiprazole IM q.8 weeks, cetirizine 10 mg daily, Flonase p.r.n., hydrocodone p.r.n. SOCIAL HISTORY: Positive smoke. Negative alcohol. Previous IV drug abuse with the last time 10 years ago. FAMILY HISTORY: Mother with Crohn's disease, asthma. VITAL SIGNS: Temperature 36.9, blood pressure 89/56, pulse 86, respirations 16, pulse ox 97% on room air. REVIEW OF SYSTEMS: Well-nourished male, currently in no acute distress. He is not experiencing any shortness of breath or difficulty breathing. No chest pain, palpitations, diaphoresis. No nausea, vomiting, no diarrhea or constipation. He did have fever and chills yesterday. No recent inadvertent weight loss. All other review of systems negative. PHYSICAL EXAMINATION: CHEST: Few scattered rales and rhonchi bilaterally. HEART: Regular, no murmurs. EXTREMITIES: No lower extremity edema, negative Homans sign. HEENT: No scleral icterus. NECK: No cervical lymphadenopathy. ABDOMEN: Soft, nontender, nondistended. SKIN: Warm and dry. LABORATORY DATA: WBC 27.3, hemoglobin 13.9, hematocrit 40, platelets 187. Lactic acid 3.07. ASSESSMENT AND PLAN: A 39-year-old male with sepsis from epididymitis. He has significant leukocytosis as well as soft blood pressures and may require vasopressors. We will place a central venous catheter for IV medications as well as possible vasopressors. Job ID: [id number] DocumentID: [id number] Dictated Date: 01/01/2020 20:33:06 System Auditor Date: 01/02/2020 01:00:09 Dictated By: DEMI HORNER MD
--- NOTE | 2020-01-02 01:24 | OPERATIVE REPORT ---
DATE OF SERVICE: 01/01/2020 ADMITTING PHYSICIAN: Rosamaria King MD PREOPERATIVE DIAGNOSES: Epididymitis, sepsis. POSTOPERATIVE DIAGNOSES: Epididymitis, sepsis. PROCEDURE: Placement of left subclavian central venous catheter. SURGEON: Demi Horner MD. ANESTHESIA: Local. ESTIMATED BLOOD LOSS: Minimal. DISPOSITION: The patient tolerated the procedure well. INDICATIONS: The patient is a 39-year-old male admitted yesterday for pain in the scrotal region as well as leukocytosis and hypotension. He was monitored and had worsening leukocytosis as well as fevers and hypotension. He was transferred to the ICU and may potentially require vasopressors. DESCRIPTION OF PROCEDURE: The chest and neck were prepped and draped in standard surgical fashion. A 1% lidocaine was used to anesthetize overlying skin in the left subclavian region. Left subclavian vein was then cannulated with drawing of venous blood. The guidewire was then inserted without any resistance. The cannulating needle removed and a skin incision made using 11 blade. A tract was then created using a venous dilator and a triple lumen central venous catheter was then placed over the guidewire using the Seldinger technique. The guidewire was then removed and all three ports felicitas venous blood and heparinized saline pushed in without any resistance. The catheter was then sutured to the skin using 3-0 silk interrupted sutures. Catheter was then cleaned and covered with Op-Site. The patient tolerated the procedure well. We will get a post-procedure chest x-ray. Job ID: [id number] DocumentID: [id number] Dictated Date: 01/01/2020 20:35:40 Cemetery Worker Date: 01/02/2020 01:23:56 Dictated By: DEMI HORNER MD
[2020-01-02] MEDS ORDERED: VANCOMYCIN 750 MG/VIAL IV ONE (02:02)
[2020-01-02] MEDS ORDERED: VANCOMYCIN 500 MG/VIAL IV ONE (02:02)
[2020-01-02] MEDS ORDERED: NS IV 500 ML 0 ML ONE (02:02)
[2020-01-02] MEDS ORDERED: NS (IVPB) 250 ML ONE (02:04)
[2020-01-02] MEDS: PIPERACILLIN/TAZOBACTAM (BULK) 4.5 GM in NS (IVPB) 100 ML IV SCH ×3 (02:20→18:17)
[2020-01-02] MEDS: VANCOMYCIN INJECTION 1,250 MG in NS (IVPB) 250 ML IV SCH ×2 (02:20→15:36)
[2020-01-02] MEDS: KETOROLAC 15 MG/ML VIAL IV PRN (02:30)
[2020-01-02 03:23] LABS: BASOPHILS % (AUTO) 0 % (0-10); EOSINOPHILS # (AUTO) 0.2 10^3/uL (0.0-0.3); EOSINOPHILS % (AUTO) 1 % (0-10); HEMATOCRIT 33 % (40-54); LYMPHOCYTES # (AUTO) 1.2 X 10^3 (1.0-4.0); LYMPHOCYTES % (AUTO) 5 % (12-44); MEAN CORPUSCULAR HEMOGLOBIN 30 PG (25-34); MEAN CORPUSCULAR HGB CONC 33 G/DL (32-36); MEAN CORPUSCULAR VOLUME 89 FL (80-99); MEAN PLATELET VOLUME 9.7 FL (7.4-10.4); MONOCYTES # (AUTO) 1.6 X 10^3 (0.0-1.0); MONOCYTES % (AUTO) 7 % (0-12); NEUTROPHILS # (AUTO) 20.1 X 10^3 (1.8-7.8); NEUTROPHILS % (AUTO) 87 % (42-75); PLATELET COUNT 199 10^3/uL (130-400); RED CELL DISTRIBUTION WIDTH 13.4 % (10.0-14.5); WHITE BLOOD COUNT 23.1 10^3/uL (4.3-11.0)
[2020-01-02 03:39] LABS: ALANINE AMINOTRANSFERASE 12 U/L (0-55); ALBUMIN 2.5 GM/DL (3.2-4.5); ALKALINE PHOSPHATASE 85 U/L (40-136); BILIRUBIN,TOTAL 0.5 MG/DL (0.1-1.0); BUN/CREATININE RATIO 9; CALCIUM 7.8 MG/DL (8.5-10.1); CARBON DIOXIDE 22 MMOL/L (21-32); CHLORIDE 111 MMOL/L (98-107); CREATININE SERUM 0.89 MG/DL (0.60-1.30); GFR ESTIMATED > 60; GLUCOSE 101 MG/DL (70-105); POTASSIUM 3.7 MMOL/L (3.6-5.0); SODIUM 141 MMOL/L (135-145); TOTAL PROTEIN 4.9 GM/DL (6.4-8.2)
[2020-01-02] MEDS: NS IV 1000 ML 1,000 ML IV SCH ×4 (03:43→10:35)
[2020-01-02] MEDS: VASOPRESSIN INJECTION 20 UNIT in NORMAL SALINE 100 ML IV SCH (03:44)
[2020-01-02] MEDS: ENOXAPARIN 30 MG/0.3 ML (LOVENOX) SYR SC SCH (05:53)
[2020-01-02] MEDS: NOREPINEPHRINE 4 MG/250 ML 250 ML IV SCH (06:32)
[2020-01-02] MEDS: DOCUSATE SODIUM 100 MG (COLACE) CAP PO SCH ×2 (08:50→21:42)
--- NOTE | 2020-01-02 11:52 | Progress Note ---
Subjective Subjective/Events-last exam Afebrile last 24 hours, did not end up needing pressors, BP stayed in 90s overnight. He reports feeling "okay" and denies pain, but is anxious to get up and walk around. Focused Exam Lactate Level 01/01/20 18:30: Lactic Acid Level 3.07*H 01/01/20 20:30: Lactic Acid Level 2.54*H 01/01/20 22:51: Lactic Acid Level 0.70 Time of Focused Exam: 20:09 Objective Exam Last Set of Vital Signs Vital Signs Date Time Temp Pulse Resp B/P (MAP) Pulse Ox O2 Delivery O2 Flow Rate FiO2 01/02/20 10:00 81 16 101/78 (86) 93 Room Air 01/02/20 09:28 37.1 Capillary Refill : Less Than 3 Seconds I&O Intake and Output 01/02/20 00:00 Intake Total 8844.5 ml Output Total 1675 ml Balance 7169.5 ml Intake Oral 1190 ml IV Total 7654.5 ml Output Urine Total 1675 ml General: Alert, No Acute Distress Lungs: Clear to Auscultation, Normal Air Movement Heart: Regular Rate, No Murmurs Abdomen: Normal Bowel Sounds, Soft Psych/Mental Status: Mood NL Other physical findings Right scrotum remains erythematous and indurated Results/Procedures Lab Laboratory Tests 01/01/20 14:05: Vancomycin Level Trough 10.1 01/01/20 18:30: White Blood Count 27.3H, Red Blood Count 4.40, Hemoglobin 13.9, Hematocrit 40, Mean Corpuscular Volume 92, Mean Corpuscular Hemoglobin 32, Mean Corpuscular Hemoglobin Concent 35, Red Cell Distribution Width 13.6, Platelet Count 187, Mean Platelet Volume 9.7, Neutrophils (%) (Auto) 92H, Lymphocytes (%) (Auto) 3L, Monocytes (%) (Auto) 4, Eosinophils (%) (Auto) 1, Basophils (%) (Auto) 0, Neutrophils # (Auto) 25.2H, Lymphocytes # (Auto) 0.8L, Monocytes # (Auto) 1.1H, Eosinophils # (Auto) 0.2, Basophils # (Auto) 0.0, Sodium Level 136, Potassium Level 3.8, Chloride Level 105, Carbon Dioxide Level 22, Anion Gap 9, Blood Urea Nitrogen 10, Creatinine 1.00, Estimat Glomerular Filtration Rate > 60, BUN/Creatinine Ratio 10, Glucose Level 194H, Lactic Acid Level 3.07*H, Calcium Level 8.6, Corrected Calcium 9.5, Total Bilirubin 0.5, Aspartate Amino Transf (AST/SGOT) 15, Alanine Aminotransferase (ALT/SGPT) 12, Alkaline Phosphatase 94, Total Protein 5.4L, Albumin 2.9L 01/01/20 20:30: Lactic Acid Level 2.54*H 01/01/20 22:51: Lactic Acid Level 0.70 01/02/20 03:10: White Blood Count 23.1H, Red Blood Count 3.70L, Hemoglobin 11.0#L, Hematocrit 3 3L, Mean Corpuscular Volume 89, Mean Corpuscular Hemoglobin 30, Mean Corpuscular Hemoglobin Concent 33, Red Cell Distribution Width 13.4, Platelet Count 199, Mean Platelet Volume 9.7, Neutrophils (%) (Auto) 87H, Lymphocytes (%) (Auto) 5L, Monocytes (%) (Auto) 7, Eosinophils (%) (Auto) 1, Basophils (%) (Auto) 0, Neutrophils # (Auto) 20.1H, Lymphocytes # (Auto) 1.2, Monocytes # (Auto) 1.6H, Eosinophils # (Auto) 0.2, Basophils # (Auto) 0.0, Sodium Level 141, Potassium Level 3.7, Chloride Level 111H, Carbon Dioxide Level 22, Anion Gap 8, Blood Urea Nitrogen 8, Creatinine 0.89, Estimat Glomerular Filtration Rate > 60, BUN/Creatinine Ratio 9, Glucose Level 101, Calcium Level 7.8L, Corrected Calcium 9.0, Total Bilirubin 0.5, Aspartate Amino Transf (AST/SGOT) 14, Alanine Aminotransferase (ALT/SGPT) 12, Alkaline Phosphatase 85, Total Protein 4.9L, Albumin 2.5L Microbiology 12/31/19 Urine Culture - Final, Complete NO GROWTH 12/31/19 Blood Culture - Preliminary, Resulted No growth Radiology US: IMPRESSION: 1. There is no evidence for a solid testicular mass or for torsion. 2. The appearance of the epididymis on the right does suggest epididymitis. Clinical follow-up is recommended. 3. There is a small slightly complicated hydrocele on the right as well. Assessment/Plan Assessment/Plan (1) Severe sepsis Status: Acute Assessment & Plan: Diagnosed at about 1850 on 12/31 with elevated lactic acid. 30 cc/kg bolus initiated, repeat CBC, CMP, transfer to ICU and central line placed due to concern for possible progression to septic shock and possible need for pressors. Broaden antibiotic to zosyn and vancomycin. CXR. Focused exam as noted, repeat lactic acid ordered to follow. 3/ Resolved, lactic acid normalized and BP 100s this am. Continue zosyn and vancomycin, cultures pending. (2) Sepsis Status: Acute Assessment & Plan: Secondary to epididymitis, febrile, leukocytosis, tachycardic. No lactic acidosis or end organ dysfunction on admission. IVF, ceftriaxone and vancomycin started on admission. (3) Epididymoorchitis Status: Acute Assessment & Plan: Antibiotics as above, scrotal support. Urology consulted, appreciate recommendations. (4) Schizophrenia Status: Chronic (5) DVT prophylaxis Status: Acute Assessment & Plan: Enoxaparin Clinical Quality Measures DVT/VTE Risk/Contraindication: Risk Factor Score Per Nursin RFS Level Per Nursing on Admit: 3=High JORGE ALBERTO LAFLEUR MD Jan 02, 2020 11:52
--- NOTE | 2020-01-02 11:59 | Progress Note - Urology ---
Progress Note-Urology Progress Notes/Assess & Plan Progress/Assessment & Plan AFEBRILE, WBCS 23,000, PAIN BETTER, PE OF RT TESTIS AND EPIDIDYMIS SOMEWHAT SOFTER. PLAN 1. ADD LEVAQUIN 750 DAILY 2. US TOMORROW AM, IF SHOWS TESTICULAR ABSCESS CONSIDER ORCHIECTOMY. I WILL BE OOT FROM THIS AFTERNOON TILL MONDAY EVENING, MAY TRANSFER TO [place] IF NEEDED Final Diagnosis ACUTE SEVERE EPIDIDYMOORCHITIS BRYANT FLANAGAN MD Jan 02, 2020 11:59
[2020-01-02] MEDS: LEVOFLOXACIN 750 MG/150 ML IV 150 ML IV SCH (13:01)
--- NOTE | 2020-01-02 15:35 | NUR ---
RECEIVED REPORT FROM [facility]
[2020-01-02] MEDS: ACETAMINOPHEN 500 MG TAB (TYLENOL) PO PRN (18:23)
[2020-01-02] MEDS: HYDROcodone/APAP 5 MG/325 MG (LORTAB) TAB PO PRN (21:42)
[2020-01-03] MEDS: PIPERACILLIN/TAZOBACTAM (BULK) 4.5 GM in NS (IVPB) 100 ML IV SCH ×2 (01:47→10:40)
[2020-01-03 04:30] VITALS: BP 117/60
[2020-01-03] MEDS: VANCOMYCIN INJECTION 1,250 MG in NS (IVPB) 250 ML IV SCH (04:35)
[2020-01-03 04:50] LABS: BASOPHILS % (AUTO) 0 % (0-10); EOSINOPHILS # (AUTO) 0.2 10^3/uL (0.0-0.3); EOSINOPHILS % (AUTO) 1 % (0-10); HEMATOCRIT 32 % (40-54); HEMOGLOBIN 10.7 G/DL (13.3-17.7); LYMPHOCYTES # (AUTO) 1.3 X 10^3 (1.0-4.0); LYMPHOCYTES % (AUTO) 8 % (12-44); MEAN CORPUSCULAR HEMOGLOBIN 30 PG (25-34); MEAN CORPUSCULAR HGB CONC 34 G/DL (32-36); MEAN CORPUSCULAR VOLUME 88 FL (80-99); MEAN PLATELET VOLUME 9.2 FL (7.4-10.4); MONOCYTES # (AUTO) 1.1 X 10^3 (0.0-1.0); MONOCYTES % (AUTO) 6 % (0-12); NEUTROPHILS # (AUTO) 14.5 X 10^3 (1.8-7.8); NEUTROPHILS % (AUTO) 85 % (42-75); PLATELET COUNT 227 10^3/uL (130-400); RED CELL DISTRIBUTION WIDTH 13.7 % (10.0-14.5); WHITE BLOOD COUNT 17.2 10^3/uL (4.3-11.0)
[2020-01-03 05:21] LABS: ALANINE AMINOTRANSFERASE 10 U/L (0-55); ALBUMIN 2.5 GM/DL (3.2-4.5); ALKALINE PHOSPHATASE 101 U/L (40-136); BILIRUBIN,TOTAL 0.4 MG/DL (0.1-1.0); BUN/CREATININE RATIO 6; CARBON DIOXIDE 23 MMOL/L (21-32); CHLORIDE 109 MMOL/L (98-107); CREATININE SERUM 1.08 MG/DL (0.60-1.30); GFR ESTIMATED > 60; GLUCOSE 90 MG/DL (70-105); POTASSIUM 3.4 MMOL/L (3.6-5.0); SODIUM 139 MMOL/L (135-145); TOTAL PROTEIN 5.3 GM/DL (6.4-8.2)
[2020-01-03] MEDS: ENOXAPARIN 30 MG/0.3 ML (LOVENOX) SYR SC SCH (06:32)
[2020-01-03 08:00] VITALS: BP 127/83
[2020-01-03] MEDS: DOCUSATE SODIUM 100 MG (COLACE) CAP PO SCH (08:15)
--- NOTE | 2020-01-03 10:10 | Diagnostic Imaging Report ---
INDICATION: Right-sided epididymal orchitis TECHNIQUE: Real-time grayscale sonographic imaging and color vascular evaluation of the scrotum. CORRELATION STUDY: 12/31/2019 FINDINGS: RIGHT TESTICLE: 4.3 x 2.6 x 3.6 cm. LEFT TESTICLE: 4.3 x 2.0 x 2.9 cm. There is again demonstration of asymmetric enlargement, heterogeneous appearance about the epididymis and testicle on the right. These areas are with increased vascularity consistent with underlying epididymal orchitis. Findings appear generally stable. A definitive focal fluid collection suggesting an abscess formation does not appear to be suggested. Left testicle and epididymis appearing unremarkable. There is the presence of a small left-sided hydrocele. IMPRESSION: 1. Findings remain consistent with right-sided epididymal orchitis. No suggestion for drainable abscess formation at this time. Follow-up evaluation post treatment is recommended for documentation and resolution. Dictated by: Dictated on workstation # [id number]
[2020-01-03] MEDS ORDERED: LEVO750T39 PO (10:35)
--- NOTE | 2020-01-03 10:38 | Discharge Summary ---
Discharge Summary Hospital Course Problems/Diagnosis: (1) Severe sepsis Status: Resolved Resolution Date/Time: 01/03/20 @ 10:35 Assessment & Plan: Diagnosed at about 1850 on 12/31 with elevated lactic acid. 30 cc/kg bolus initiated, repeat CBC, CMP, transfer to ICU and central line placed due to concern for possible progression to septic shock and possible need for pressors. Broaden antibiotic to zosyn and vancomycin. CXR. Focused exam as noted, repeat lactic acid ordered to follow. 01/01 Resolved, lactic acid normalized and BP 100s this am. Continue zosyn and vancomycin, cultures pending. (2) Sepsis Status: Resolved Resolution Date/Time: 01/03/20 @ 10:36 Assessment & Plan: Secondary to epididymitis, febrile, leukocytosis, tachycardic. No lactic acidosis or end organ dysfunction on admission. IVF, ceftriaxone and vancomycin started on admission. (3) Epididymoorchitis Status: Acute Assessment & Plan: Scrotal support. Urology consulted, appreciate recommendations. 01/02 repeat US this am with no drainable abscess, vitals normal and leukocytosis improving, cultures negative and chlamydia/GC neg. Continued on levofloxacin to complete outpatient course. (4) Schizophrenia Status: Chronic Hospital Course Date of Admission: Dec 31, 2019 at 13:40 Admission Diagnosis : Family Physician/Provider: Raji Prater Date of Discharge: 01/03/20 Discharge Diagnosis: See problem list Hospital Course: See problem list Labs and Pending Lab Test: Laboratory Tests 01/03/20 04:44: White Blood Count 17.2H, Red Blood Count 3.61L, Hemoglobin 10.7L, Hematocrit 32L , Mean Corpuscular Volume 88, Mean Corpuscular Hemoglobin 30, Mean Corpuscular Hemoglobin Concent 34, Red Cell Distribution Width 13.7, Platelet Count 227, Mean Platelet Volume 9.2, Neutrophils (%) (Auto) 85H, Lymphocytes (%) (Auto) 8L, Monocytes (%) (Auto) 6, Eosinophils (%) (Auto) 1, Basophils (%) (Auto) 0, Neutrophils # (Auto) 14.5H, Lymphocytes # (Auto) 1.3, Monocytes # (Auto) 1.1H, Eosinophils # (Auto) 0.2, Basophils # (Auto) 0.0, Sodium Level 139, Potassium Level 3.4L, Chloride Level 109H, Carbon Dioxide Level 23, Anion Gap 7, Blood Urea Nitrogen 6L, Creatinine 1.08, Estimat Glomerular Filtration Rate > 60, BUN/Creatinine Ratio 6, Glucose Level 90, Calcium Level 8.0L, Corrected Calcium 9.2, Total Bilirubin 0.4, Aspartate Amino Transf (AST/SGOT) 13, Alanine Aminotransferase (ALT/SGPT) 10, Alkaline Phosphatase 101, Total Protein 5.3L, Albumin 2.5L Microbiology 12/31/19 Urine Culture - Final, Complete NO GROWTH 12/31/19 Blood Culture - Preliminary, Resulted No growth Home Meds Active [place] 5-325 Tablet (Hydrocodone/Acetaminophen) 1 Each Tablet 1 Tab PO Q4-6HR MDD 10 TABS 7 Days Do not fill unless Bactrim is also filled Bactrim Ds Tablet (Sulfamethoxazole/Trimethoprim) 1 Each Tablet 1 Each PO BID Reported Aristada (Aripiprazole Lauroxil) 1,064 Mg/3.9 Ml Suser.syr 1,064 Mg IM [id number] RECIEVES THIS INJECTION FROM [facility]- LAST DOSE 11-12-2019 Naproxen 500 Mg Tablet.dr 500 Mg PO Q12H PRN Flonase Allergy Relief (Fluticasone Propionate) 9.9 Ml Ing[place].susp 1 [place] NS DAILY PRN 1 SPRAY EACH NARE DAILY Zyrtec (Cetirizine HCl) 10 Mg Tablet 10 Mg PO DAILY PRN Potassium Gluconate 90 Mg Tablet 90 Mg PO DAILY Assessment/Pt DC Instructions Follow up with Tarun Prater on 01/08 at 11:40 am. Discharge Diet: Regular Diet Activity as Tolerated: Yes Consulations Consultations Dr. Moulton/Urology Discharge Physical Examination Allergies: Coded Allergies: No Known Drug Allergies (Unverified , 12/02/14) General Appearance: No Apparent Distress, WD/WN Respiratory: Lungs Clear, Normal Breath Sounds Cardiovascular: Regular Rate, Rhythm, No Murmur Gastrointestinal: Normal Bowel Sounds, Tenderness Skin: Normal Color, Warm/Dry Neurologic/Psychiatric: Alert, Other (flat affect) Copy Copies To 1: Tarun Prater APRN Clinical Quality Measures DVT/VTE Risk/Contraindication: Risk Factor Score Per Nursin RFS Level Per Nursing on Admit: 3=High JORGE ALBERTO LAFLEUR MD Jan 03, 2020 10:38
[2020-01-03] MEDS ORDERED: KCL 20 MEQ TAB (K-DUR) PO ONE (10:45)
--- NOTE | 2020-01-03 13:08 | NUR ---
family requested Dr King speak with them prior to DC. doctor called and aware of request
[2020-01-03] MEDS: LEVOFLOXACIN 750 MG/150 ML IV 150 ML IV SCH (13:37)
--- NOTE | 2020-01-03 13:52 | Diagnostic Imaging Report ---
INDICATION: Abdominal distention. COMPARISON: None available. TECHNIQUE: Two radiographs of the abdomen dated January 03, 2020. FINDINGS: Bibasilar pleural-parenchymal opacities are present. Gas is identified scattered throughout the loops of large and small bowel without dilated loops of bowel. No differential air-fluid levels. No free air. No suspicious calcifications overlying the renal shadows. No acute osseous abnormality. IMPRESSION: Bibasilar pleural-parenchymal opacities, felt related to a combination of pleural fluid with adjacent atelectasis and/or infiltrate. Nonspecific bowel gas pattern without definite bowel obstruction or free air. Dictated by: Dictated on workstation # [id number]
[2020-01-03] MEDS ORDERED: TROUGH ORDER-PHARMACY XX NR (14:00)
[2020-01-03 14:10] VITALS: BP 127/83
--- NOTE | 2020-01-03 14:10 | NUR ---
patient DCD following CT of abdomen results per doctor order
[2020-01-03] MEDS ORDERED: HYDR-4226 PO (14:39)
--- OUTSIDE RECORDS SUMMARY | 2020-01-06 02:50 | XMS REPORT ---
Author Author Sergey Waller Organization [facility] Address [address] [place] [address] Care Team Providers Care Portal Architect Name Role Phone PRIYANK Waller Unavailable PROBLEMS Type Condition ICD9-CM Code IRF28-UQ Code Onset Dates Condition S tatus SNOMED Code Problem Paranoia F22 Active 209839766 Problem Schizoaffective disorder, unspecified type F25.9 Active 78485218 Problem ADHD (attention deficit hyperactivity disorder), inattentive type F90.0 Active 15546755 Problem Alcohol abuse F10.10 Active 473966 05 Problem Panlobular emphysema J43.1 Active 9518378 Problem Emaciation E41 Active 082326490 Problem Smoker F17.200 Active 92059939 Problem Psychosis, unspecified psychosis type F29 Active 28776868 Problem Methamphetamine use disorder, 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 Active 401760620 ALLERGIES No Information ENCOUNTERS Encounter Location Date Diagnosis [place] [address] [place] [address] Oct, [place] [address] [place] [id number] [address] [place] [phone] Oct, Panlobular emphysema J43.1 [place] [address] [place] [id number] [address] [place] [address] Oct, Methamphetamine use disorder , 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 ; Psychosis, unspecified psychosis type F29 ; Alcohol abuse F10.10 and Homelessness Z59.0 [place] [address] [place] [id number] [address] [place] [address] Sep, Dyspnea on exertion R06.09 [place] [address] [place] [id number] [address] [place] [address] Aug, Dyspnea on exertion R06.09 ; Schizoaffective disorder, unspecified type F25.9 and Encounter for immunization Z23 [place] [address] [address] Aug, [place] [address] [address] Jul, Methamphetamine use disorder , 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 ; Psychosis, unspecified psychosis type F29 ; Alcohol abuse F10.10 and Homeless Z59.0 [place] [address] [address] Jul, Dizziness R42 [place] [address] [address] Jun, [place] [address] [address] May, Psychosis, unspecified psych osis type F29 ; Alcohol abuse F10.10 and Methamphetamine use disorder, 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 [place] [address] [address] Apr, [place] [address] [address] Apr, Paranoia F22 ; Schizoaffecti ve disorder, unspecified type F25.9 and ADHD (attention deficit hyperactivity disorder), inattentive type F90.0 [place] [address] [address] Apr, Emaciation E41 ; Family hist ory of diabetes mellitus Z83.3 ; Family history of early CAD Z82.49 ; Smoker F17.200 and Psychosis, unspecified psychosis type F29 [place] [address] [place] [id number] [place] [address] Apr, Psychosis, unspecified psych osis type F29 ; Alcohol abuse F10.10 and Methamphetamine use disorder, 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 [place] [address] [address] 16 Mar, 2017 Paranoia F22 ; Schizoaffecti ve disorder, unspecified type F25.9 and ADHD (attention deficit hyperactivity disorder), inattentive type F90.0 [facility] [address] [id number] [address] [place] [phone] 14 Jan, 2015 [facility] [address] [id number] [address] [place] [phone] Jan, [facility] [address] [id number] [address] [place] [address] Dec, [facility] [address] [id number] [address] [place] [address] Dec, [facility] [address] [id number] [address] [place] [phone] Dec, [facility] [address] [id number] [address] [place] [phone] Dec, [facility] [address] [id number] [address] [place] [phone] Dec, [facility] [address] [id number] [address] [place] [phone] Dec, [facility] [address] [id number] [address] [place] [phone] Dec, [facility] [address] [id number] [address] [place] [phone] Dec, [facility] [address] [id number] [address] [place] [phone] Dec, [facility] [address] [id number] [address] [place] [phone] Dec, [facility] [address] [id number] [address] [place] [phone] Oct, IMMUNIZATIONS No Known Immunizations SOCIAL HISTORY Never Assessed REASON FOR VISIT PLAN OF CARE VITAL SIGNS MEDICATIONS Unknown Medications RESULTS No Results PROCEDURES No Known procedures INSTRUCTIONS MEDICATIONS ADMINISTERED No Known Medications MEDICAL (GENERAL) HISTORY Type Description Date Medical History ADHD Medical History Schizoaffective Surgical History Repaired right lung 2014 Hospitalization History Broken ribs, collapsed lung, work accident 2.5 month stay 2014 Hospitalization History right knee surgery in high school, o rthoscopic
--- OUTSIDE RECORDS SUMMARY | 2020-01-06 02:50 | XMS REPORT ---
Author Author Sergey Waller Organization [facility] Address [address] [place] [address] Care Team Providers Care Physician Practice Manager Name Role Phone PRIYANK Waller Unavailable PROBLEMS Type Condition ICD9-CM Code ZIC33-SP Code Onset Dates Condition S tatus SNOMED Code Problem Paranoia F22 Active 246468659 Problem Schizoaffective disorder, unspecified type F25.9 Active 58077693 Problem ADHD (attention deficit hyperactivity disorder), inattentive type F90.0 Active 77179605 Problem Alcohol abuse F10.10 Active 264269 05 Problem Panlobular emphysema J43.1 Active 8877542 Problem Emaciation E41 Active 052147435 Problem Smoker F17.200 Active 65168997 Problem Psychosis, unspecified psychosis type F29 Active 84992718 Problem Methamphetamine use disorder, 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 Active 784716723 ALLERGIES No Information ENCOUNTERS Encounter Location Date Diagnosis [place] [address] [place] [address] Oct, [place] [address] [place] [id number] [address] [place] [address] Oct, Panlobular emphysema J43.1 [place] [address] [address] [place] [id number] [address] [place] [address] Oct, Methamphetamine use disorder , 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 ; Psychosis, unspecified psychosis type F29 ; Alcohol abuse F10.10 and Homelessness Z59.0 [place] [address] [address] [place] [id number] [place] [address] Sep, Dyspnea on exertion R06.09 [place] [address] [place] [id number] [address] [place] [address] Aug, Dyspnea on exertion R06.09 ; Schizoaffective disorder, unspecified type F25.9 and Encounter for immunization Z23 [place] [address] [address] Aug, [place] [address] [address] Jul, Methamphetamine use disorder , 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 ; Psychosis, unspecified psychosis type F29 ; Alcohol abuse F10.10 and Homeless Z59.0 [place] [address] [address] Jul, Dizziness R42 [place] [address] [address] Jun, [place] [address] [address] May, Psychosis, unspecified psych osis type F29 ; Alcohol abuse F10.10 and Methamphetamine use disorder, 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 [place] [address] [address] Apr, [place] [address] [address] Apr, Paranoia F22 ; Schizoaffecti ve disorder, unspecified type F25.9 and ADHD (attention deficit hyperactivity disorder), inattentive type F90.0 [place] [address] [address] Apr, Emaciation E41 ; Family hist ory of diabetes mellitus Z83.3 ; Family history of early CAD Z82.49 ; Smoker F17.200 and Psychosis, unspecified psychosis type F29 [place] [address] [place] [id number] [place] [address] Apr, Psychosis, unspecified psych osis type F29 ; Alcohol abuse F10.10 and Methamphetamine use disorder, 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 [place] [address] [address] 16 Mar, 2017 Paranoia F22 ; Schizoaffecti ve disorder, unspecified type F25.9 and ADHD (attention deficit hyperactivity disorder), inattentive type F90.0 [facility] [address] [id number] [address] [place] [address] 14 Jan, 2015 [facility] [address] [id number] [address] [place] [address] Jan, [facility] [address] [id number] [address] [place] [address] Dec, [facility] [address] [id number] [address] [place] [address] Dec, [facility] [address] [id number] [address] [place] [address] Dec, [facility] [address] [id number] [address] [place] [address] Dec, [facility] [address] [id number] [address] [place] [address] Dec, [facility] [address] [id number] [address] [place] [address] Dec, [facility] [address] [id number] [address] [place] [address] Dec, [facility] [address] [id number] [address] [place] [address] Dec, [facility] [address] [id number] [address] [place] [phone] Dec, [facility] [address] [id number] [address] [place] [address] Dec, [facility] [address] [id number] [address] [place] [address] Oct, IMMUNIZATIONS No Known Immunizations SOCIAL HISTORY [...]
--- OUTSIDE RECORDS SUMMARY | 2020-01-06 02:50 | XMS REPORT ---
Author Author Sergey Waller Organization [facility] Address [address] [place] [address] Care Team Providers Care Director Medical Economics Name Role Phone PRIYANK Waller Unavailable PROBLEMS Type Condition ICD9-CM Code FOO28-CU Code Onset Dates Condition S tatus SNOMED Code Problem Paranoia F22 Active 195524440 Problem Schizoaffective disorder, unspecified type F25.9 Active 85955959 Problem ADHD (attention deficit hyperactivity disorder), inattentive type F90.0 Active 68707755 Problem Alcohol abuse F10.10 Active 731153 05 Problem Panlobular emphysema J43.1 Active 1516962 Problem Emaciation E41 Active 650104936 Problem Smoker F17.200 Active 61189888 Problem Psychosis, unspecified psychosis type F29 Active 02548199 Problem Methamphetamine use disorder, 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 Active 024451672 ALLERGIES No Information ENCOUNTERS Encounter Location Date Diagnosis [place] [address] [place] [address] Oct, [place] [address] [address] [place] [id number] [address] [place] [address] Oct, Panlobular emphysema J43.1 [place] [address] [address] [place] [id number] [address] [place] [address] Oct, Methamphetamine use disorder , 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 ; Psychosis, unspecified psychosis type F29 ; Alcohol abuse F10.10 and Homelessness Z59.0 [place] [address] [address] [place] [id number] [address] [place] [address] Sep, Dyspnea on exertion R06.09 [place] [address] [address] [place] [id number] [address] [place] [address] Aug, Dyspnea on exertion R06.09 ; Schizoaffective disorder, unspecified type F25.9 and Encounter for immunization Z23 [place] [address] [address] Aug, [place] [address] [address] Jul, Methamphetamine use disorder , 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 ; Psychosis, unspecified psychosis type F29 ; Alcohol abuse F10.10 and Homeless Z59.0 [place] [address] [address] Jul, Dizziness R42 [place] [address] [address] Jun, [place] [address] [address] May, Psychosis, unspecified psych osis type F29 ; Alcohol abuse F10.10 and Methamphetamine use disorder, 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 [place] [address] [address] Apr, [place] [address] [address] Apr, Paranoia F22 ; Schizoaffecti ve disorder, unspecified type F25.9 and ADHD (attention deficit hyperactivity disorder), inattentive type F90.0 [place] [address] [address] Apr, Emaciation E41 ; Family hist ory of diabetes mellitus Z83.3 ; Family history of early CAD Z82.49 ; Smoker F17.200 and Psychosis, unspecified psychosis type F29 [place] [address] [place] [id number] [place] [address] Apr, Psychosis, unspecified psych osis type F29 ; Alcohol abuse F10.10 and Methamphetamine use disorder, 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 [place] [address] [address] 16 Mar, 2017 Paranoia F22 ; Schizoaffecti ve disorder, unspecified type F25.9 and ADHD (attention deficit hyperactivity disorder), inattentive type F90.0 [facility] [address] [id number] [address] [place] [address] 14 Jan, 2015 [facility] [address] [id number] [address] [place] [address] Jan, [facility] [address] [id number] [address] [place] [address] Dec, [facility] [address] [id number] [address] [place] [address] Dec, [facility] [address] [id number] [address] [place] [address] Dec, [facility] [address] [id number] [address] [place] [address] Dec, [facility] [address] [id number] [address] [place] [address] Dec, [facility] [address] [id number] [address] [place] [address] Dec, [facility] [address] [id number] [address] [place] [address] Dec, [facility] [address] [id number] [address] [place] [address] Dec, [facility] [address] [id number] [address] [place] [address] Dec, [facility] [address] [id number] [address] [place] [phone] Dec, [facility] [address] [id number] [address] [place] [address] Oct, IMMUNIZATIONS No Known Immunizations SOCIAL HISTORY [...]
--- OUTSIDE RECORDS SUMMARY | 2020-01-06 02:50 | XMS REPORT ---
Author Author Sergey Diaz Doctor Organization [facility] Address Unknown Phone Unavailable Care Team Providers Care Uniforms Sales Representative Name Role Phone Migration, Doctor Unavailable Unavailable PROBLEMS Type Condition ICD9-CM Code AGQ72-UM Code Onset Dates Condition S tatus SNOMED Code Problem Paranoia F22 Active 874412177 Problem Schizoaffective disorder, unspecified type F25.9 Active 53734654 Problem ADHD (attention deficit hyperactivity disorder), inattentive type F90.0 Active 37356247 Problem Alcohol abuse F10.10 Active 229674 05 Problem Panlobular emphysema J43.1 Active 8319807 Problem Emaciation E41 Active 431676067 Problem Smoker F17.200 Active 32946448 Problem Psychosis, unspecified psychosis type F29 Active 97453447 Problem Methamphetamine use disorder, 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 Active 380316198 ALLERGIES No Information ENCOUNTERS Encounter Location Date Diagnosis [place] [address] [address] [place] [id number] [address] [place] [address] Oct, [place] [address] [address] [place] [id number] [address] [place] [phone] Oct, Panlobular emphysema J43.1 [place] [address] [address] [place] [id number] [address] [place] [address] Oct, Methamphetamine use disorder , 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 ; Psychosis, unspecified psychosis type F29 ; Alcohol abuse F10.10 and Homelessness Z59.0 [place] [address] [place] [address] Sep, Dyspnea on exertion R06.09 [place] [address] [address] [place] [id number] [address] [place] [address] Aug, Dyspnea on exertion R06.09 ; Schizoaffective disorder, unspecified type F25.9 and Encounter for immunization Z23 [place] [address] [address] Aug, [place] [address] [address] Jul, Methamphetamine use disorder , 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 ; Psychosis, unspecified psychosis type F29 ; Alcohol abuse F10.10 and Homeless Z59.0 [place] [address] [address] Jul, Dizziness R42 [place] [address] [address] [place] [id number] [place] [address] Jun, [place] [address] [address] May, Psychosis, unspecified psych osis type F29 ; Alcohol abuse F10.10 and Methamphetamine use disorder, 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 [place] [address] [address] Apr, [place] [address] [address] Apr, Paranoia F22 ; Schizoaffecti ve disorder, unspecified type F25.9 and ADHD (attention deficit hyperactivity disorder), inattentive type F90.0 [place] [address] [address] Apr, Emaciation E41 ; Family hist ory of diabetes mellitus Z83.3 ; Family history of early CAD Z82.49 ; Smoker F17.200 and Psychosis, unspecified psychosis type F29 [place] [address] [place] [id number] [place] [address] Apr, Psychosis, unspecified psych osis type F29 ; Alcohol abuse F10.10 and Methamphetamine use disorder, 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 [place] [address] [place] [id number] [place] [address] Mar, Paranoia F22 ; Schizoaffecti ve disorder, unspecified type F25.9 and ADHD (attention deficit hyperactivity disorder), inattentive type F90.0 [facility] [address] [id number] [address] [place] [phone] 14 Jan, 2015 [facility] [address] [id number] [address] [place] [phone] Jan, [facility] [address] [id number] [address] [place] [phone] Dec, [facility] [address] [id number] [address] [place] [phone] Dec, [facility] [address] [id number] [address] [place] [phone] Dec, [facility] [address] [id number] [address] [place] [phone] Dec, [facility] [address] [id number] [address] [place] [phone] Dec, [facility] [address] [id number] [address] [place] [phone] Dec, [facility] [address] [id number] [address] [place] [phone] Dec, [facility] [address] [id number] [address] [place] [phone] Dec, [facility] [address] [id number] [address] [place] [phone] Dec, [facility] [address] [id number] [address] [place] [phone] Dec, [facility] [address] [id number] [address] [place] [phone] Oct, IMMUNIZATIONS No Known Immunizations SOCIAL HISTORY Never Assessed REASON FOR VISIT [facility] PLAN OF CARE VITAL SIGNS MEDICATIONS Unknown Medications RESULTS No Results PROCEDURES No Known procedures INSTRUCTIONS MEDICATIONS ADMINISTERED No Known Medications MEDICAL (GENERAL) HISTORY Type Description Date Medical History ADHD Medical History Schizoaffective Surgical History Repaired right lung 2015 Hospitalization History Broken ribs, collapsed lung, work accident 2.5 month stay 2014 Hospitalization History right knee surgery in high school, o rthoscopic
--- OUTSIDE RECORDS SUMMARY | 2020-01-06 02:50 | XMS REPORT ---
Author Author Sergey Waller Organization [facility] Address [address] [place] [address] Care Team Providers Care Patrol Supervisor Name Role Phone PRIYANK Waller Unavailable PROBLEMS Type Condition ICD9-CM Code [id number] Code Onset Dates Condition S tatus SNOMED Code Problem Paranoia F22 Active 588123834 Problem Schizoaffective disorder, unspecified type F25.9 Active 87591974 Problem ADHD (attention deficit hyperactivity disorder), inattentive type F90.0 Active 51657745 Problem Alcohol abuse F10.10 Active 555690 05 Problem Panlobular emphysema J43.1 Active 5299320 Problem Emaciation E41 Active 435282742 Problem Smoker F17.200 Active 11923603 Problem Psychosis, unspecified psychosis type F29 Active 28658846 Problem Methamphetamine use disorder, 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 Active 819837765 ALLERGIES No Information ENCOUNTERS Encounter Location Date Diagnosis [place] [address] [place] [address] Oct, [place] [address] [address] [place] [id number] [address] [place] [address] Oct, Panlobular emphysema J43.1 [place] [address] [address] [place] [id number] [address] [place] [address] Oct, Methamphetamine use disorder , 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 ; Psychosis, unspecified psychosis type F29 ; Alcohol abuse F10.10 and Homelessness Z59.0 [place] [address] [address] [place] [id number] [place] [address] Sep, Dyspnea on exertion R06.09 [place] [address] [address] [place] [id number] [address] [place] [address] Aug, Dyspnea on exertion R06.09 ; Schizoaffective disorder, unspecified type F25.9 and Encounter for immunization Z23 [place] [address] [address] Aug, [place] [address] [address] Jul, Methamphetamine use disorder , 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 ; Psychosis, unspecified psychosis type F29 ; Alcohol abuse F10.10 and Homeless Z59.0 [place] [address] [address] Jul, Dizziness R42 [place] [address] [address] Jun, [place] [address] [address] May, Psychosis, unspecified psych osis type F29 ; Alcohol abuse F10.10 and Methamphetamine use disorder, 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 [place] [address] [address] Apr, [place] [address] [address] Apr, Paranoia F22 ; Schizoaffecti ve disorder, unspecified type F25.9 and ADHD (attention deficit hyperactivity disorder), inattentive type F90.0 [place] [address] [address] Apr, Emaciation E41 ; Family hist ory of diabetes mellitus Z83.3 ; Family history of early CAD Z82.49 ; Smoker F17.200 and Psychosis, unspecified psychosis type F29 [place] [address] [address] [place] [id number] [place] [address] Apr, Psychosis, unspecified psych osis type F29 ; Alcohol abuse F10.10 and Methamphetamine use disorder, 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 [place] [address] [address] 16 Mar, 2017 Paranoia F22 ; Schizoaffecti ve disorder, unspecified type F25.9 and ADHD (attention deficit hyperactivity disorder), inattentive type F90.0 [facility] [address] [id number] [address] [place] [address] 14 Jan, 2015 [facility] [address] [id number] [address] [place] [address] Jan, [facility] [address] [id number] [address] [place] [address] Dec, [facility] [address] [id number] [address] [place] [address] Dec, [facility] [address] [id number] [address] [place] [address] Dec, [facility] [address] [id number] [address] [place] [address] Dec, [facility] [address] [id number] [address] [place] [address] Dec, [facility] [address] [id number] [address] [place] [address] Dec, [facility] [address] [id number] [address] [place] [address] Dec, [facility] [address] [id number] [address] [place] [address] Dec, [facility] [address] [id number] [address] [place] [address] Dec, [facility] [address] [id number] [address] [place] [address] Dec, [facility] [address] [id number] [address] [place] [address] Oct, IMMUNIZATIONS No Known Immunizations SOCIAL HISTORY Never Assessed REASON FOR VISIT PLAN OF CARE VITAL SIGNS Height 70 in 2014-12-30 Weight 124.5 lbs 2014-12-30 Temperature 98.3 degrees Fahrenheit 2014-12-30 Heart Rate 71 bpm 2014-12-30 Respiratory Rate 18 2014-12-30 Blood pressure systolic 121 mmHg 2014-12-30 Blood pressure diastolic 79 mmHg 2014-12-30 MEDICATIONS Unknown Medications RESULTS No Results PROCEDURES Procedure Date Ordered Result Body Site CHEST X-RAY December 30, 2014 VISIT December 30, 2014 INSTRUCTIONS MEDICATIONS ADMINISTERED No Known Medications MEDICAL (GENERAL) HISTORY Type Description Date Medical History ADHD Medical History Schizoaffective Surgical History Repaired right lung 2014 Hospitalization History Broken ribs, collapsed lung, work accident 2.5 month stay 2014 Hospitalization History right knee surgery in high school, o rthoscopic
--- OUTSIDE RECORDS SUMMARY | 2020-01-06 02:50 | XMS REPORT ---
Author Author Sergey Waller Organization [facility] Address [address] [place] [address] Care Team Providers Care Staff Occupational Therapist Name Role Phone PRIYANK Waller Unavailable PROBLEMS Type Condition ICD9-CM Code EHH92-JR Code Onset Dates Condition S tatus SNOMED Code Problem Paranoia F22 Active 184429604 Problem Schizoaffective disorder, unspecified type F25.9 Active 90067686 Problem ADHD (attention deficit hyperactivity disorder), inattentive type F90.0 Active 21027988 Problem Alcohol abuse F10.10 Active 064338 05 Problem Panlobular emphysema J43.1 Active 6159318 Problem Emaciation E41 Active 495734486 Problem Smoker F17.200 Active 66613518 Problem Psychosis, unspecified psychosis type F29 Active 65950386 Problem Methamphetamine use disorder, 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 Active 722367348 ALLERGIES No Information ENCOUNTERS Encounter Location Date Diagnosis [place] [address] [address] [place] [phone] Oct, [place] [address] [address] [place] [id number] [address] [place] [phone] Oct, Panlobular emphysema J43.1 [place] [address] [address] [place] [id number] [address] [place] [phone] Oct, Methamphetamine use disorder , 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 ; Psychosis, unspecified psychosis type F29 ; Alcohol abuse F10.10 and Homelessness Z59.0 [place] [address] [address] [place] [id number] [address] [place] [address] Sep, Dyspnea on exertion R06.09 [place] [address] [address] [place] [id number] [address] [place] [address] Aug, Dyspnea on exertion R06.09 ; Schizoaffective disorder, unspecified type F25.9 and Encounter for immunization Z23 [place] [address] [address] Aug, [place] [address] [address] Jul, Methamphetamine use disorder , 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 ; Psychosis, unspecified psychosis type F29 ; Alcohol abuse F10.10 and Homeless Z59.0 [place] [address] [address] Jul, Dizziness R42 [place] [address] [address] Jun, [place] [address] [address] May, Psychosis, unspecified psych osis type F29 ; Alcohol abuse F10.10 and Methamphetamine use disorder, 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 [place] [address] [address] Apr, [place] [address] [address] Apr, Paranoia F22 ; Schizoaffecti ve disorder, unspecified type F25.9 and ADHD (attention deficit hyperactivity disorder), inattentive type F90.0 [place] [address] [address] Apr, Emaciation E41 ; Family hist ory of diabetes mellitus Z83.3 ; Family history of early CAD Z82.49 ; Smoker F17.200 and Psychosis, unspecified psychosis type F29 [place] [address] [address] [place] [id number] [place] [address] Apr, Psychosis, unspecified psych osis type F29 ; Alcohol abuse F10.10 and Methamphetamine use disorder, 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 [place] [address] [address] 16 Mar, 2017 Paranoia F22 ; Schizoaffecti ve disorder, unspecified type F25.9 and ADHD (attention deficit hyperactivity disorder), inattentive type F90.0 [facility] [address] [id number] [address] [place] [phone] 14 Jan, 2015 [facility] [address] [id number] [address] [place] [phone] Jan, [facility] [address] [id number] [address] [place] [phone] Dec, [facility] [address] [id number] [address] [place] [phone] Dec, [facility] [address] [id number] [address] [place] [phone] Dec, [facility] [address] [id number] [address] [place] [phone] Dec, [facility] [address] [id number] [address] [place] [phone] Dec, [facility] [address] [id number] [address] [place] [phone] Dec, [facility] [address] [id number] [address] [place] [phone] Dec, [facility] [address] [id number] [address] [place] [phone] Dec, [facility] [address] [id number] [address] [place] [phone] Dec, [facility] [address] [id number] [address] [place] [phone] Dec, [facility] [address] [id number] [address] [place] [phone] Oct, IMMUNIZATIONS No Known Immunizations SOCIAL HISTORY Never Assessed REASON FOR VISIT PLAN OF CARE VITAL SIGNS MEDICATIONS Unknown Medications RESULTS No Results PROCEDURES Procedure Date Ordered Result Body Site COMPLETE CBC W/AUTO DIFF WBC January 01, 2015 ASSAY THYROID STIM HORMONE January 01, 2015 LIPID PANEL January 01, 2015 COMPREHEN METABOLIC PANEL January 01, 2015 VENIPUNCT, ROUTINE* January 01, 2015 INSTRUCTIONS MEDICATIONS ADMINISTERED No Known Medications MEDICAL (GENERAL) HISTORY Type Description Date Medical History ADHD Medical History Schizoaffective Surgical History Repaired right lung 2014 Hospitalization History Broken ribs, collapsed lung, work accident 2.5 month stay 2014 Hospitalization History right knee surgery in high school, o rthoscopic
--- OUTSIDE RECORDS SUMMARY | 2020-01-06 02:51 | XMS REPORT ---
Author Author Sergey iDaz Doctor Organization [facility] Address Unknown Phone Unavailable Care Team Providers Care Executive Vp Name Role Phone Migration, Doctor Unavailable Unavailable PROBLEMS Type Condition ICD9-CM Code TVR03-IL Code Onset Dates Condition S tatus SNOMED Code Problem Paranoia F22 Active 678766044 Problem Schizoaffective disorder, unspecified type F25.9 Active 75982355 Problem ADHD (attention deficit hyperactivity disorder), inattentive type F90.0 Active 84267773 Problem Alcohol abuse F10.10 Active 626308 05 Problem Panlobular emphysema J43.1 Active 1285056 Problem Emaciation E41 Active 583519146 Problem Smoker F17.200 Active 22780585 Problem Psychosis, unspecified psychosis type F29 Active 83269480 Problem Methamphetamine use disorder, 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 Active 432112051 ALLERGIES No Information ENCOUNTERS Encounter Location Date Diagnosis [place] [address] [address] [place] [id number] [address] [place] [phone] Oct, [place] [address] [address] [place] [id number] [address] [place] [address] Oct, Panlobular emphysema J43.1 [place] [address] [address] [place] [id number] [address] [place] [address] Oct, Methamphetamine use disorder , 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 ; Psychosis, unspecified psychosis type F29 ; Alcohol abuse F10.10 and Homelessness Z59.0 [place] [address] [address] [place] [address] Sep, Dyspnea on exertion R06.09 [place] [address] [address] [place] [id number] [address] [place] [address] Aug, Dyspnea on exertion R06.09 ; Schizoaffective disorder, unspecified type F25.9 and Encounter for immunization Z23 [place] [address] [address] Aug, [place] [address] [address] Jul, Methamphetamine use disorder , 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 ; Psychosis, unspecified psychosis type F29 ; Alcohol abuse F10.10 and Homeless Z59.0 [place] [address] [address] Jul, Dizziness R42 [place] [address] [address] [place] [id number] [place] [address] Jun, [place] [address] [address] May, Psychosis, unspecified psych osis type F29 ; Alcohol abuse F10.10 and Methamphetamine use disorder, 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 [place] [address] [address] Apr, [place] [address] [address] Apr, Paranoia F22 ; Schizoaffecti ve disorder, unspecified type F25.9 and ADHD (attention deficit hyperactivity disorder), inattentive type F90.0 [place] [address] [address] Apr, Emaciation E41 ; Family hist ory of diabetes mellitus Z83.3 ; Family history of early CAD Z82.49 ; Smoker F17.200 and Psychosis, unspecified psychosis type F29 [place] [address] [place] [id number] [place] [address] Apr, Psychosis, unspecified psych osis type F29 ; Alcohol abuse F10.10 and Methamphetamine use disorder, 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 [place] [address] [place] [id number] [place] [address] Mar, Paranoia F22 ; Schizoaffecti ve disorder, unspecified type F25.9 and ADHD (attention deficit hyperactivity disorder), inattentive type F90.0 [facility] [address] [id number] [address] [place] [phone] 14 Jan, 2015 [facility] [address] [id number] [address] [place] [phone] Jan, [facility] [address] [id number] [address] [place] [phone] Dec, [facility] [address] [id number] [address] [place] [phone] Dec, [facility] [address] [id number] [address] [place] [phone] Dec, [facility] [address] [id number] [address] [place] [phone] Dec, [facility] [address] [id number] [address] [place] [phone] Dec, [facility] [address] [id number] [address] [place] [address] Dec, [facility] [address] [id number] [address] [place] [phone] Dec, [facility] [address] [id number] [address] [place] [phone] Dec, [facility] [address] [id number] [address] [place] [phone] Dec, [facility] [address] [id number] [address] [place] [phone] Dec, [facility] [address] [id number] [address] [place] [phone] Oct, IMMUNIZATIONS No Known Immunizations SOCIAL HISTORY Never Assessed REASON FOR VISIT [facility] [place] PLAN OF CARE VITAL SIGNS MEDICATIONS Medication Instructions Dosage Frequency Start Date End Date Duration S tatus Lexapro 20 mg 1 Tablet by Oral route 1 time per day 03 M 2014 Active Ibuprofen 200 mg 4 Tablet by Oral route every 6 hours PRN Dec, Active Gabapentin 100 mg 1 Tablet by Po route 3 times per day 0 Dec, Active Nicoderm CQ 21 mg/24 hr 1 Patch by Transdermal route 1 time per day PRN Dec, Active Hydrocodone-Acetaminophen 10-325 mg 1-2 Tablet by Oral route every 4 hours PRN Dec, Active RESULTS No Results PROCEDURES No Known procedures INSTRUCTIONS MEDICATIONS ADMINISTERED No Known Medications MEDICAL (GENERAL) HISTORY Type Description Date Medical History ADHD Medical History Schizoaffective Surgical History Repaired right lung 2014 Hospitalization History Broken ribs, collapsed lung, work accident 2.5 month stay 2014 Hospitalization History right knee surgery in high school, o rthoscopic
--- OUTSIDE RECORDS SUMMARY | 2020-01-06 02:51 | XMS REPORT ---
Author Author Sergey Diaz Doctor Organization [facility] Address Unknown Phone Unavailable Care Team Providers Care Pmo Manager Name Role Phone Migration, Doctor Unavailable Unavailable PROBLEMS Type Condition ICD9-CM Code [id number] Code Onset Dates Condition S tatus SNOMED Code Problem Paranoia F22 Active 546631946 Problem Schizoaffective disorder, unspecified type F25.9 Active 58765633 Problem ADHD (attention deficit hyperactivity disorder), inattentive type F90.0 Active 38398808 Problem Alcohol abuse F10.10 Active 442197 05 Problem Panlobular emphysema J43.1 Active 0032824 Problem Emaciation E41 Active 239209541 Problem Smoker F17.200 Active 58374277 Problem Psychosis, unspecified psychosis type F29 Active 15441493 Problem Methamphetamine use disorder, 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 Active 607666651 ALLERGIES No Information ENCOUNTERS Encounter Location Date Diagnosis [place] [address] [address] [place] [id number] [address] [place] [address] Oct, [place] [address] [address] [place] [id number] [address] [place] [address] Oct, Panlobular emphysema J43.1 [place] [address] [address] [place] [id number] [address] [place] [address] Oct, Methamphetamine use disorder , 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 ; Psychosis, unspecified psychosis type F29 ; Alcohol abuse F10.10 and Homelessness Z59.0 [place] [address] [address] [place] [address] Sep, Dyspnea on exertion R06.09 [place] [address] [address] [place] [id number] [address] [place] [address] Aug, Dyspnea on exertion R06.09 ; Schizoaffective disorder, unspecified type F25.9 and Encounter for immunization Z23 [place] [address] [address] Aug, [place] [address] [address] Jul, Methamphetamine use disorder , 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 ; Psychosis, unspecified psychosis type F29 ; Alcohol abuse F10.10 and Homeless Z59.0 [place] [address] [address] Jul, Dizziness R42 [place] [address] [address] [place] [id number] [place] [address] Jun, [place] [address] [address] May, Psychosis, unspecified psych osis type F29 ; Alcohol abuse F10.10 and Methamphetamine use disorder, 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 [place] [address] [address] Apr, [place] [address] [address] Apr, Paranoia F22 ; Schizoaffecti ve disorder, unspecified type F25.9 and ADHD (attention deficit hyperactivity disorder), inattentive type F90.0 [place] [address] [address] Apr, Emaciation E41 ; Family hist ory of diabetes mellitus Z83.3 ; Family history of early CAD Z82.49 ; Smoker F17.200 and Psychosis, unspecified psychosis type F29 [place] [address] [address] [place] [id number] [place] [address] Apr, Psychosis, unspecified psych osis type F29 ; Alcohol abuse F10.10 and Methamphetamine use disorder, 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 [place] [address] [address] [place] [id number] [place] [address] Mar, Paranoia F22 ; Schizoaffecti ve disorder, unspecified type F25.9 and ADHD (attention deficit hyperactivity disorder), inattentive type F90.0 [facility] [address] [id number] [address] [place] [id number] 14 Jan, 2015 [facility] [address] [id number] [address] [place] [address] Jan, [facility] [address] [id number] [address] [place] [address] Dec, [facility] [address] [id number] [address] [place] [phone] Dec, [facility] [address] [id number] [address] [place] [phone] Dec, [facility] [address] [id number] [address] [place] [address] Dec, [facility] [address] [id number] [address] [place] [phone] Dec, [facility] [address] [id number] [address] [place] [phone] Dec, [facility] [address] [id number] [address] [place] [address] Dec, [facility] [address] [id number] [address] [place] [phone] Dec, [facility] [address] [id number] [address] [place] [phone] Dec, [facility] [address] [id number] [address] [place] [phone] Dec, [facility] [address] [id number] [address] [place] [phone] Oct, IMMUNIZATIONS No Known Immunizations SOCIAL HISTORY Never Assessed REASON FOR VISIT [facility] [place] PLAN OF CARE VITAL SIGNS MEDICATIONS Unknown [...]
--- OUTSIDE RECORDS SUMMARY | 2020-01-06 02:52 | XMS REPORT | Continuity of Care Document ---
Author Organization Unknown Address Unknown Phone Unavailable Allergies Active Description Code Type Severity Reaction Onset Reported/Identified Relationship to Patient Clinical Status Yes No Known Drug Allergies [id number] Drug Allergy Unknown N/A 12/02/2014 Medications There is no data. Problems Date Dx Coded Attending Type Code Diagnosis Diagnosed By 11/12/2014 KONRAD ORTIZ, MOLLY Reynolds Ot 807.03 11/12/2014 KONRAD ORTIZ, MOLLY Reynolds Ot 860.0 11/12/2014 KONRAD ORTIZ, MOLLY Reynolds Ot E000.8 11/12/2014 KONRAD ORTIZ, MOLLY Reynolds Ot E888.1 11/12/2014 KONRAD ORTIZ, MOLLY Reynolds Ot 807.03 11/12/2014 KONRAD ORTIZ, MOLLY Reynolds Ot 860.0 11/12/2014 KONRAD ORTIZ, MOLLY S Ot E000.8 11/12/2014 KONRAD ORTIZ, MOLLY Reynolds Ot E888.1 11/12/2014 KONRAD ORTIZ, MOLLY Reynolds Ot 807.03 11/12/2014 KONRAD ORTIZ, MOLLY Reynolds Ot 860.0 11/12/2014 KONRAD ORTIZ, MOLLY Reynolds Ot E000.8 11/12/2014 KONRAD ORTIZ, MOLLY Reynolds Ot E888.1 11/17/2014 KONRAD ORTIZ, MOLLY Reynolds Ot 807.03 FRACTURE THREE RIBS-CLOS 11/17/2014 KONRAD ORTIZ, MOLLY Reynolds Ot 860.0 TRAUM PNEUMOTHORAX-CLOSE 11/17/2014 KONRAD ORTIZ, MOLLY Reynolds Ot E000.8 OTHER EXTERNAL CAUSE STATUS 11/17/2014 KONRAD ORTIZ, MOLLY Reynolds Ot E888.1 FALL STRIKING OBJECT NEC 11/19/2014 KONRAD ORTIZ, MOLLY Reynolds Ot 48 6 11/19/2014 KONRAD ORTIZ, MOLLY Reynolds Ot 48 6 11/19/2014 KONRAD OTRIZ, MOLLY Reynolds Ot 511.9 11/19/2014 KONRAD ORTIZ, MOLLY Reynolds Ot 512.89 11/19/2014 KONRAD ORTIZ, MOLLY Reynolds Ot V15.59 11/19/2014 KONRAD ORTIZ, MOLLY S Ot 48 6 11/19/2014 KONRAD ORTIZ, MOLLY S Ot 511.9 11/19/2014 KONRAD ORTIZ, MOLLY S Ot 512.89 11/19/2014 KONRAD ORTIZ, MOLLY S Ot V15.59 11/19/2014 KONRAD ORTIZ, MOLLY S Ot 48 6 11/22/2014 KONRAD ORTIZ, MOLLY S Ot 300.00 ANXIETY STATE NOS 11/22/2014 KONRAD ORTIZ, MOLLY S Ot 305.1 TOBACCO USE DISORDER 11/22/2014 KONRAD ORTIZ, MOLLY S Ot 48 1 PNEUMOCOCCAL PNEUMONIA [STREPTOCOCCUS PN 11/22/2014 KONRAD ORTIZ, MOLLY S Ot 48 6 11/22/2014 KONRAD ORTIZ, MOLLY Reynolds Ot V54.19 AFTERCARE HEALING TRAUMATIC FX OTHER BON 12/04/2014 DOVE DO, CRESENCIO Ot 238.71 12/04/2014 DOVE DO, CRESENCIO Ot 300.00 12/04/2014 DOVE DO, CRESENCIO Ot 305.1 12/04/2014 DOVE DO, CRESENCIO Ot 486 12/04/2014 DOVE DO, CRESENCIO Ot 510.9 12/04/2014 DOVE DO, CRESENCIO Ot V54.19 12/04/2014 DOVE DO, CRESENCIO Ot 238.71 12/04/2014 DOVE DO, CRESENCIO Ot 300.00 12/04/2014 DOVE DO, CRESENCIO Ot 305.1 12/04/2014 DOVE DO, CRESENCIO Ot 486 12/04/2014 DOVE DO, CRESENCIO Ot 510.9 12/04/2014 DOVE DO, CRESENCIO Ot V54.19 12/05/2014 DOVE DO, CRESENCIO Ot 238.71 12/05/2014 DOVE DO, CRESENCIO Ot 300.00 12/05/2014 DOVE DO, CRESENCIO Ot 305.1 12/05/2014 DOVE DO, CRESENCIO Ot 486 12/05/2014 DOVE DO, CRESENCIO Ot 510.9 12/05/2014 DOVE DO, CRESENCIO Ot V54.19 12/05/2014 DOVE DO, CRESENCIO Ot 238.71 12/05/2014 DOVE DO, CRESENCIO Ot 300.00 12/05/2014 DOVE DO, CRESENCIO Ot 305.1 12/05/2014 DOVE DO, CRESENCIO Ot 486 12/05/2014 DOVE DO, CRESENCIO Ot 510.9 12/05/2014 DOVE DO, CRESENCIO Ot V54.19 12/06/2014 DOVE DO, CRESENCIO Ot 238.71 12/06/2014 DOVE DO, CRESENCIO Ot 300.00 12/06/2014 DOVE DO, CRESENCIO Ot 305.1 12/06/2014 DOVE DO, CRESENCIO Ot 486 12/06/2014 DOVE DO, CRESENCIO Ot 510.9 12/06/2014 DOVE DO, CRESENCIO Ot V54.19 12/07/2014 DOVE DO, CRESENCIO Ot 238.71 12/07/2014 DOVE DO, CRESENCIO Ot 300.00 12/07/2014 DOVE DO, CRESENCIO Ot 305.1 12/07/2014 DOVE DO, CRESENCIO Ot 486 12/07/2014 DOVE DO, CRESENCIO Ot 510.9 12/07/2014 DOVE DO, CRESENCIO Ot V54.19 12/08/2014 DOVE DO, CRESENCIO Ot 238.71 12/08/2014 DOVE DO, CRESENCIO Ot 300.00 12/08/2014 DOVE DO, CRESENCIO Ot 305.1 12/08/2014 DOVE DO, CRESENCIO Ot 486 12/08/2014 DOVE DO, CRESENCIO Ot 510.9 12/08/2014 DOVE DO, CRESENCIO Ot V54.19 12/08/2014 DOVE DO, CRESENCIO Ot 238.71 12/08/2014 DOVE DO, CRESENCIO Ot 300.00 12/08/2014 DOVE DO, CRESENCIO Ot 305.1 12/08/2014 DOVE DO, CRESENCIO Ot 486 12/08/2014 DOVE DO, CRESENCIO Ot 510.9 12/08/2014 DOVE DO, CRESENCIO Ot 512.1 12/08/2014 DOVE DO, CRESENCIO Ot 564.09 12/08/2014 DOVE DO, CRESENCIO Ot E935.2 12/08/2014 DOVE DO, CRESENCIO Ot V54.19 12/08/2014 DOVE DO, CRESENCIO Ot 238.71 12/08/2014 DOVE DO, CRESENCIO Ot 300.00 12/08/2014 DOVE DO, CRESENCIO Ot 305.1 12/08/2014 DOVE DO, CRESENCIO Ot 486 12/08/2014 DOVE DO, CRESENCIO Ot 510.9 12/08/2014 DOVE DO, CRESENCIO Ot 512.1 12/08/2014 DOVE DO, CRESENCIO Ot 564.09 12/08/2014 DOVE DO, CRESENCIO Ot E935.2 12/08/2014 DOVE DO, CRESENCIO Ot V54.19 12/08/2014 DOVE DO, CRESENCIO Ot 238.71 12/08/2014 DOVE DO, CRESENCIO Ot 300.00 12/08/2014 DOVE DO, CRESENCIO Ot 305.1 12/08/2014 DOVE DO, CRESENCIO Ot 486 12/08/2014 DOVE DO, CRESENCIO Ot 510.9 12/08/2014 DOVE DO, CRESENCIO Ot 512.1 12/08/2014 DOVE DO, CRESENCIO Ot 564.09 12/08/2014 DOVE DO, CRESENCIO Ot E935.2 12/08/2014 DOVE DO, CRESENCIO Ot V54.19 12/08/2014 DOVE DO, CRESENCIO Ot 238.71 12/08/2014 DOVE DO, CRESENCIO Ot 300.00 12/08/2014 DOVE DO, CRESENCIO Ot 305.1 12/08/2014 DOVE DO, CRESENCIO Ot 486 12/08/2014 DOVE DO, CRESENCIO Ot 510.9 12/08/2014 DOVE DO, CRESENCIO Ot 512.1 12/08/2014 DOVE DO, CRESENCIO Ot 564.09 12/08/2014 DOVE DO, CRESENCIO Ot E935.2 12/08/2014 DOVE DO, CRESENCIO Ot V54.19 12/12/2014 DOVE DO, CRESENCIO Ot 238.71 ESSENTIAL THROMBOCYTHEMIA 12/12/2014 DOVE DO, CRESENCIO Ot 300.00 ANXIETY STATE NOS 12/12/2014 DOVE DO, CRESENCIO Ot 305.1 TOBACCO USE DISORDER 12/12/2014 DOVE DO, CRESENCIO Ot 486 PNEUMONIA, ORGANISM NOS 12/12/2014 DOVE DO, CRESENCIO Ot 510.9 EMPYEMA W/O FISTULA 12/12/2014 DOVE DO, CRESENCIO Ot 512.1 IATROGENIC PNEUMOTHORAX 12/12/2014 DOVE DO, CRESENCIO Ot 518.0 PULMONARY COLLAPSE 12/12/2014 DOVE DO, CRESENCIO Ot 564.09 OTHER CONSTIPATION 12/12/2014 DOVE DO, CRESENCIO Ot 934.1 FOREIGN BODY BRONCHUS 12/12/2014 DOVE DO, CRESENCIO Ot E935.2 ADV EFF OPIATES 12/12/2014 DOVE DO, CRESENCIO Ot V04.81 ND FOR PROPHYLACTIC VACCIN AND INOCULATI 12/12/2014 DOVE DO, CRESENCIO Ot V54.19 AFTERCARE HEALING TRAUMATIC FX OTHER BON 12/24/2014 DOVE DO, CRESENCIO Ot 238.71 12/24/2014 DOVE DO, CRESENCIO Ot 300.00 12/24/2014 DOVE DO, CRESENCIO Ot 305.1 12/24/2014 DOVE DO, CRESENCIO Ot 486 12/24/2014 DOVE DO, CRESENCIO Ot 510.9 12/24/2014 DOVE DO, CRESENCIO Ot 512.1 12/24/2014 DOVE DO, CRESENCIO Ot 518.0 12/24/2014 DOVE DO, CRESENCIO Ot 564.09 12/24/2014 DOVE DO, CRESENCIO Ot 934.1 12/24/2014 DOVE DO, CRESENCIO Ot E935.2 12/24/2014 DOVE DO, CRESENCIO Ot V04.81 12/24/2014 DOVE DO, CRESENCIO Ot V54.19 12/24/2014 DOVE DO, CRESENCIO Ot 238.71 12/24/2014 DOVE DO, CRESENCIO Ot 300.00 12/24/2014 DOVE DO, CRESENCIO Ot 305.1 12/24/2014 DOVE DO, CRESENCIO Ot 486 12/24/2014 DOVE DO, CRESENCIO Ot 510.9 12/24/2014 DOVE DO, CRESENCIO Ot 512.1 12/24/2014 DOVE DO, CRESENCIO Ot 518.0 12/24/2014 DOVE DO, CRESENCIO Ot 564.09 12/24/2014 DOVE DO, CRESENCIO Ot 934.1 12/24/2014 DOVE DO, CRESENCIO Ot E935.2 12/24/2014 DOVE DO, CRESENCIO Ot V04.81 12/24/2014 DOVE DO, CRESENCIO Ot V54.19 02/27/2015 KONRAD ORTIZ, MOLLY Reynolds Ot 511.9 02/27/2015 KONRAD ORTIZ, MOLLY Reynolds Ot 512.89 02/27/2015 KONRAD ORTIZ, MOLLY Reynolds Ot V15.59 02/27/2015 KONRAD ORTIZ, MOLLY S Ot 48 6 02/27/2015 KONRAD ORTIZ, MOLLY S Ot 511.9 02/27/2015 KONRAD ORTIZ, MOLLY S Ot 807.00 02/27/2015 KONRAD ORTIZ, MOLLY S Ot E000.0 02/27/2015 KONRAD ORTIZ, MOLLY S Ot E849.3 02/27/2015 KONRAD ORTIZ, MOLLY S Ot E928.9 02/27/2015 Ot 786.09 02/27/2015 Ot 786.50 02/27/2015 Ot 807.00 02/27/2015 Ot E000.0 02/27/2015 Ot E849.3 02/27/2015 Ot E928.9 02/27/2015 KONRAD ORTIZ, MOLLY S Ot 511.9 02/27/2015 KONRAD ORTIZ, MOLLY S Ot 512.89 02/27/2015 KONRAD ORTIZ, MOLLY S Ot V15.59 02/27/2015 KONRAD ORTIZ, MOLLY S Ot 48 6 02/27/2015 KONRAD ORTIZ, MOLLY S Ot 511.9 02/27/2015 KONRAD ORTIZ, MOLLY S Ot 807.00 02/27/2015 KONRAD ORTIZ, MOLLY S Ot E000.0 02/27/2015 KONRAD ORTIZ, MOLLY S Ot E849.3 02/27/2015 KONRAD ORTIZ, MOLLY S Ot E928.9 02/27/2015 Ot 786.09 02/27/2015 Ot 786.50 02/27/2015 Ot 807.00 02/27/2015 Ot E000.0 02/27/2015 Ot E849.3 02/27/2015 Ot E928.9 03/22/2015 KONRAD ORTIZ, MOLLY S Ot 807.00 FRACTURE RIB NOS-CLOSED 03/22/2015 KONRAD ORTIZ, MOLLY S Ot E000.0 CIVILIAN ACTIVITY DONE FOR INCOME OR PAY 03/22/2015 KONRAD ORTIZ, MOLLY Reynolds Ot E849.3 ACC ON INDUSTR PREMISES 03/22/2015 KONRAD ORTIZ, MOLLY S Ot E928.9 ACCIDENT NOS 03/31/2015 KONRAD ORTZI, MOLLY S Ot 511.9 03/31/2015 KONRAD ORTIZ, MOLLY S Ot 512.89 03/31/2015 KONRAD ORTIZ, MOLLY S Ot V15.59 03/31/2015 KONRAD ORTIZ, MOLLY S Ot 48 6 03/31/2015 KONRAD ORTIZ, MOLLY S Ot 511.9 03/31/2015 Ot 786.09 03/31/2015 Ot 786.50 03/31/2015 Ot 807.00 03/31/2015 Ot E000.0 03/31/2015 Ot E849.3 03/31/2015 Ot E928.9 03/31/2015 KONRAD ORTIZ, MOLLY S Ot 807.00 03/31/2015 KONRAD ORTIZ, MOLLY S Ot E000.0 03/31/2015 KONRAD ORTIZ, MOLLY S Ot E849.3 03/31/2015 KONRAD ORTIZ, MOLLY S Ot E928.9 10/05/2015 KONRAD ORTIZ, MOLLY S Ot 511.9 10/05/2015 KONRAD ORTIZ, MOLLY S Ot 512.89 10/05/2015 KONRAD ORTIZ, MOLLY S Ot V15.59 10/05/2015 KONRAD ORTIZ, MOLLY S Ot 48 6 10/05/2015 KONRAD ORTIZ, MOLLY S Ot 511.9 10/05/2015 Ot 786.09 10/05/2015 Ot 786.50 10/05/2015 Ot 807.00 10/05/2015 Ot E000.0 10/05/2015 Ot E849.3 10/05/2015 Ot E928.9 10/05/2015 KONRAD ORTIZ, MOLLY S Ot 807.00 10/05/2015 KONRAD ORTIZ, MOLLY S Ot E000.0 10/05/2015 KONRAD ORTIZ, MOLLY S Ot E849.3 10/05/2015 KONRAD ORTIZ, MOLLY S Ot E928.9 10/05/2015 GAYLE IVEY Ot F17.210 NICOTINE DEPENDENCE, CIGARETTES, UNCOMPL 10/05/2015 GAYLE IVEY Ot L03.114 CELLULITIS OF LEFT UPPER LIMB 10/05/2015 GAYLE IVEY Ot S60.512A ABRASION OF LEFT HAND, INITIAL ENCOUNTER 10/05/2015 GAYLE IVEY Ot W22.8XXA STRIKING AGAINST OR STRUCK BY OTHER OBJE 10/05/2015 GAYLE IVEY Ot Y92.69 OTH INDUSTRIAL AND CONSTRUCTION AREA 10/05/2015 GAYLE IVEY Ot Y99.8 OTHER EXTERNAL CAUSE STATUS 10/05/2015 KONRAD ORTIZ, MOLLY S Ot 511.9 10/05/2015 KONRAD ORTIZ, MOLLY S Ot 512.89 10/05/2015 KONRAD ORTIZ, MOLLY S Ot V15.59 10/05/2015 KONRAD ORTIZ, MOLLY S Ot 48 6 10/05/2015 KONRAD ORTIZ, MOLLY S Ot 511.9 10/05/2015 Ot 786.09 10/05/2015 Ot 786.50 10/05/2015 Ot 807.00 10/05/2015 Ot E000.0 10/05/2015 Ot E849.3 10/05/2015 Ot E928.9 10/05/2015 KONRAD ORTIZ, MOLLY S Ot 807.00 10/05/2015 KONRAD ORTIZ, MOLLY S Ot E000.0 10/05/2015 KONRAD ORTIZ, MOLLY S Ot E849.3 10/05/2015 KONRAD ORTIZ, MOLLY S Ot E928.9 10/05/2015 KONRAD ORTIZ, MOLLY S Ot 511.9 10/05/2015 KONRAD ORTIZ, MOLLY S Ot 512.89 10/05/2015 KONRAD ORTIZ, MOLLY S Ot V15.59 10/05/2015 KONRAD ORTIZ, MOLLY S Ot 48 6 10/05/2015 KONRAD ORTIZ, MOLLY S Ot 511.9 10/05/2015 Ot 786.09 10/05/2015 Ot 786.50 10/05/2015 Ot 807.00 10/05/2015 Ot E000.0 10/05/2015 Ot E849.3 10/05/2015 Ot E928.9 10/05/2015 KONRAD ORTIZ, MOLLY S Ot 807.00 10/05/2015 KONRAD ORTIZ, MOLLY S Ot E000.0 10/05/2015 KONRAD ORTIZ, MOLLY S Ot E849.3 10/05/2015 KONRAD ORTIZ, MOLLY S Ot E928.9 07/18/2016 KONRAD ORTIZ, MOLLY S Ot 511.9 PLEURAL EFFUSION NOS 07/18/2016 KONRAD ORTIZ, MOLLY S Ot 512.89 OTHER PNEUMOTHORAX 07/18/2016 KONRAD ORTIZ, MOLLY S Ot V15.59 PERSONAL HISTORY OF OTHER INJURY 07/18/2016 KONRAD ORTIZ, MOLLY S Ot 48 6 PNEUMONIA, ORGANISM NOS 07/18/2016 KONRAD ORTIZ, MOLLY Reynolds Ot 511.9 PLEURAL EFFUSION NOS 07/18/2016 Ot 786.09 RES PIRATORY ABNORM NEC 07/18/[address] PAIN NOS 07/18/2016 Ot 807.00 FRA CTURE RIB NOS- CLOSED 07/18/2016 Ot E000.0 CIV BRIANA ACTIVITY DONE FOR INCOME OR PAY 07/18/2016 Ot E849.3 ACC ON INDUSTR PREMISES 07/18/2016 Ot E928.9 ACC IDENT NOS 07/18/2016 MOLLY SILVESTRE MD Ot 807.00 FRACTURE RIB NOS-CLOSED 07/18/2016 MOLLY SILVESTRE MD Ot E000.0 CIVILIAN ACTIVITY DONE FOR INCOME OR PAY 07/18/2016 MOLLY SILVESTRE MD Ot E849.3 ACC ON INDUSTR PREMISES 07/18/2016 MOLLY SILVESTRE MD Ot E928.9 ACCIDENT NOS 07/18/2016 JUNE AVERY YARD SPOTTER Ot F17.210 NICOTINE DEPENDENCE, CIGARETTES, UNCOMPL 07/18/2016 JUNE AVERY YARD SPOTTER Ot J40 BRONCHITIS, NOT SPECIFIED ACUTE OR CH 07/18/2016 JUNE AVERY YARD SPOTTER Ot R05 COUGH 07/18/2016 JUNE AVERY YARD SPOTTER Ot R07.81 PLEURODYNIA 07/18/2016 KONRAD ORTIZ, MOLLY Reynolds Ot 511.9 PLEURAL EFFUSION NOS 07/18/2016 KONRAD ORTIZ, MOLLY Reynolds Ot 512.89 OTHER PNEUMOTHORAX 07/18/2016 MOLLY SILVESTRE MD Ot V15.59 PERSONAL HISTORY OF OTHER INJURY 07/18/2016 KONRAD ORTIZ, MOLLY Reynolds Ot 48 6 PNEUMONIA, ORGANISM NOS 07/18/2016 KONRAD ORTIZ, MOLLY Reynolds Ot 511.9 PLEURAL EFFUSION NOS 07/18/2016 Ot 786.09 RES PIRATORY ABNORM NEC 07/18/[address] PAIN NOS 07/18/2016 Ot 807.00 FRA CTURE RIB NOS- CLOSED 07/18/2016 Ot E000.0 CIV BRIANA ACTIVITY DONE FOR INCOME OR PAY 07/18/2016 Ot E849.3 ACC ON INDUSTR PREMISES 07/18/2016 Ot E928.9 ACC IDENT NOS 07/18/2016 MOLLY SILVESTRE MD Ot 807.00 FRACTURE RIB NOS-CLOSED 07/18/2016 MOLLY SILVESTRE MD Ot E000.0 CIVILIAN ACTIVITY DONE FOR INCOME OR PAY 07/18/2016 MOLLY SILVESTRE MD Ot E849.3 ACC ON INDUSTR PREMISES 07/18/2016 MOLLY SILVESTRE MD Ot E928.9 ACCIDENT NOS 07/20/2016 JUNE AVERY YARD SPOTTER Ot F17.210 NICOTINE DEPENDENCE, CIGARETTES, UNCOMPL 07/20/2016 JUNE AVERY YARD SPOTTER Ot J40 BRONCHITIS, NOT SPECIFIED ACUTE OR CH 07/20/2016 JUNE AVERY YARD SPOTTER Ot R05 COUGH 07/20/2016 JUNE AVERY YARD SPOTTER Ot R07.81 PLEURODYNIA 10/10/2017 MOLLY SILVESTRE MD Ot 511.9 PLEURAL EFFUSION NOS 10/10/2017 MOLLY SILVESTRE MD Ot 512.89 OTHER PNEUMOTHORAX 10/10/2017 MOLLY SILVESTRE MD Ot V15.59 PERSONAL HISTORY OF OTHER INJURY 10/10/2017 MOLLY SILVESTRE MD Ot 48 6 PNEUMONIA, ORGANISM NOS 10/10/2017 MOLLY SILVESTRE MD Ot 511.9 PLEURAL EFFUSION NOS 10/10/2017 Ot 786.09 RES PIRATORY ABNORM NEC 10/10/[address] PAIN NOS 10/10/2017 Ot 807.00 FRA CTURE RIB NOS- CLOSED 10/10/2017 Ot E000.0 CIV BRIANA ACTIVITY DONE FOR INCOME OR PAY 10/10/2017 Ot E849.3 ACC ON INDUSTR PREMISES 10/10/2017 Ot E928.9 ACC IDENT NOS 10/10/2017 MOLLY SILVESTRE MD Ot 807.00 FRACTURE RIB NOS-CLOSED 10/10/2017 MOLLY SILVESTRE MD Ot E000.0 CIVILIAN ACTIVITY DONE FOR INCOME OR PAY 10/10/2017 MOLLY SILVESTRE MD Ot E849.3 ACC ON INDUSTR PREMISES 10/10/2017 MOLLY SILVESTRE MD Ot E928.9 ACCIDENT NOS 06/22/2018 MOLLY SILVESTRE MD Ot 511.9 PLEURAL EFFUSION NOS 06/22/2018 MOLLY SILVESTRE MD Ot 512.89 OTHER PNEUMOTHORAX 06/22/2018 MOLLY SILVESTRE MD Ot V15.59 PERSONAL HISTORY OF OTHER INJURY 06/22/2018 MOLLY SILVESTRE MD Ot 48 6 PNEUMONIA, ORGANISM NOS 06/22/2018 MOLLY SILVESTRE MD Ot 511.9 PLEURAL EFFUSION NOS 06/22/2018 Ot 786.09 RES PIRATORY ABNORM NEC 06/22/[address] PAIN NOS 06/22/2018 Ot 807.00 FRA CTURE RIB NOS- CLOSED 06/22/2018 Ot E000.0 CIV BRIANA ACTIVITY DONE FOR INCOME OR PAY 06/22/2018 Ot E849.3 ACC ON INDUSTR PREMISES 06/22/2018 Ot E928.9 ACC IDENT NOS 06/22/2018 MOLLY SILVESTRE MD Ot 807.00 FRACTURE RIB NOS-CLOSED 06/22/2018 MOLLY SILVESTRE MD Ot E000.0 CIVILIAN ACTIVITY DONE FOR INCOME OR PAY 06/22/2018 MOLLY SILVESTRE MD Ot E849.3 ACC ON INDUSTR PREMISES 06/22/2018 MOLLY SILVESTRE MD Ot E928.9 ACCIDENT NOS 06/22/2018 ZAFAR CRENSHAW MD Ot F17.200 NICOTINE DEPENDENCE, UNSPECIFIED, UNCOMP 06/22/2018 ZAFAR CRENSHAW MD Ot F20.9 SCHIZOPHRENIA, UNSPECIFIED 06/22/2018 ZAFAR CRENSHAW MD, Ot F31.9 BIPOLAR DISORDER, UNSPECIFIED 06/22/2018 ZAFAR CRENSHAW MD Ot F90.9 ATTENTION-DEFICIT HYPERACTIVITY DISORDER 06/22/2018 ZAFAR CRENSHAW MD Ot J45.909 UNSPECIFIED ASTHMA, UNCOMPLICATED 06/22/2018 ZAFAR CRENSHAW MD Ot R06.00 DYSPNEA, UNSPECIFIED 06/22/2018 ZAFAR CRENSHAW MD Ot R06.02 SHORTNESS OF BREATH 06/22/2018 ZAFAR CRENSHAW MD Ot T38.0X5A ADVERSE EFFECT OF GLUCOCORT/SYNTH ANALOG 06/22/2018 ZAFAR CRENSHAW MD Ot Z80.42 FAMILY HISTORY OF MALIGNANT NEOPLASM OF 06/22/2018 ZAFAR CRENSHAW MD Ot Z82.49 FAMILY HX OF ISCHEM HEART DIS AND OTH DI 06/22/2018 ZAFAR CRENSHAW MD Ot Z87.01 PERSONAL HISTORY OF PNEUMONIA (RECURRENT 06/22/2018 MOLYL SILVESTRE MD Ot 511.9 PLEURAL EFFUSION NOS 06/22/2018 MOLLY SILVESTRE MD Ot 512.89 OTHER PNEUMOTHORAX 06/22/2018 MOLLY SILVESTRE MD Ot V15.59 PERSONAL HISTORY OF OTHER INJURY 06/22/2018 MOLLY SILVESTRE MD Ot 48 6 PNEUMONIA, ORGANISM NOS 06/22/2018 MOLLY SILVESTRE MD Ot 511.9 PLEURAL EFFUSION NOS 06/22/2018 Ot 786.09 RES PIRATORY ABNORM NEC 06/22/[address] PAIN NOS 06/22/2018 Ot 807.00 FRA CTURE RIB NOS- CLOSED 06/22/2018 Ot E000.0 CIV BRIANA ACTIVITY DONE FOR INCOME OR PAY 06/22/2018 Ot E849.3 ACC ON INDUSTR PREMISES 06/22/2018 Ot E928.9 ACC IDENT NOS 06/22/2018 MOLLY SILVESTRE MD Ot 807.00 FRACTURE RIB NOS-CLOSED 06/22/2018 MOLLY SILVESTRE MD Ot E000.0 CIVILIAN ACTIVITY DONE FOR INCOME OR PAY 06/22/2018 MOLLY SILVESTRE MD Ot E849.3 ACC ON INDUSTR PREMISES 06/22/2018 MOLLY SILVESTRE MD Ot E928.9 ACCIDENT NOS 06/25/2018 ZAFAR CRENSHAW MD Ot F17.200 NICOTINE DEPENDENCE, UNSPECIFIED, UNCOMP 06/25/2018 ZAFAR CRENSHAW MD Ot F20.9 SCHIZOPHRENIA, UNSPECIFIED 06/25/2018 ZAFAR CRENSHAW MD Ot F31.9 BIPOLAR DISORDER, UNSPECIFIED 06/25/2018 ZAFAR CRENSHAW MD Ot F90.9 ATTENTION-DEFICIT HYPERACTIVITY DISORDER 06/25/2018 ZAFAR CRENSHAW MD Ot J45.909 UNSPECIFIED ASTHMA, UNCOMPLICATED 06/25/2018 ZAFAR CRENSHAW MD Ot R06.00 DYSPNEA, UNSPECIFIED 06/25/2018 ZAFAR CRENSHAW MD Ot R06.02 SHORTNESS OF BREATH 06/25/2018 ZAFAR CRENSHAW MD Ot T38.0X5A ADVERSE EFFECT OF GLUCOCORT/SYNTH ANALOG 06/25/2018 ZAFAR CRENSHAW MD Ot Z80.42 FAMILY HISTORY OF MALIGNANT NEOPLASM OF 06/25/2018 ZAFAR CRENSHAW MD Ot Z82.49 FAMILY HX OF ISCHEM HEART DIS AND OTH DI 06/25/2018 ZAFAR CRENSHAW MD Ot Z87.01 PERSONAL HISTORY OF PNEUMONIA (RECURRENT 06/25/2018 ZAFAR CRENSHAW MD Ot F17.200 NICOTINE DEPENDENCE, UNSPECIFIED, UNCOMP 06/25/2018 ZAFAR CRENSHAW MD Ot F20.9 SCHIZOPHRENIA, UNSPECIFIED 06/25/2018 ZAFAR CRENSHAW MD Ot F31.9 BIPOLAR DISORDER, UNSPECIFIED 06/25/2018 ZAFAR CRENSHAW MD Ot F90.9 ATTENTION-DEFICIT HYPERACTIVITY DISORDER 06/25/2018 ZAFAR CRENSHAW MD Ot J45.909 UNSPECIFIED ASTHMA, UNCOMPLICATED 06/25/2018 ZAFAR CRENSHAW MD Ot R06.00 DYSPNEA, UNSPECIFIED 06/25/2018 ZAFAR CRENSHAW MD Ot R06.02 SHORTNESS OF BREATH 06/25/2018 ZAFAR CRENSHAW MD Ot T38.0X5A ADVERSE EFFECT OF GLUCOCORT/SYNTH ANALOG 06/25/2018 ZAFAR CRENSHAW MD Ot Z80.42 FAMILY HISTORY OF MALIGNANT NEOPLASM OF 06/25/2018 ZAFAR CRENSHAW MD Ot Z82.49 FAMILY HX OF ISCHEM HEART DIS AND OTH DI 06/25/2018 ZAFAR CRENSHAW MD Ot Z87.01 PERSONAL HISTORY OF PNEUMONIA (RECURRENT 10/25/2018 MOLLY SILVESTRE MD Ot 511.9 PLEURAL EFFUSION NOS 10/25/2018 MOLLY SILVESTRE MD Ot 512.89 OTHER PNEUMOTHORAX 10/25/2018 MOLLY SILVESTRE MD Ot V15.59 PERSONAL HISTORY OF OTHER INJURY 10/25/2018 MOLLY SILVESTRE MD Ot 48 6 PNEUMONIA, ORGANISM NOS 10/25/2018 MOLLY SILVESTRE MD Ot 511.9 PLEURAL EFFUSION NOS 10/25/2018 Ot 786.09 RES PIRATORY ABNORM NEC 10/25/[address] PAIN NOS 10/25/2018 Ot 807.00 FRA CTURE RIB NOS- CLOSED 10/25/2018 Ot E000.0 CIV BRIANA ACTIVITY DONE FOR INCOME OR PAY 10/25/2018 Ot E849.3 ACC ON INDUSTR PREMISES 10/25/2018 Ot E928.9 ACC IDENT NOS 10/25/2018 MOLLY SILVESTRE MD Ot 807.00 FRACTURE RIB NOS-CLOSED 10/25/2018 MOLLY SILVESTRE MD Ot E000.0 CIVILIAN ACTIVITY DONE FOR INCOME OR PAY 10/25/2018 MOLLY SILVESTRE MD Ot E849.3 ACC ON INDUSTR PREMISES 10/25/2018 MOLLY SILVESTRE MD Ot E928.9 ACCIDENT NOS 10/26/2018 ZAFAR CRENSHAW MD Ot F17.200 NICOTINE DEPENDENCE, UNSPECIFIED, UNCOMP 10/26/2018 ZAFAR CRENSHAW MD Ot F20.9 SCHIZOPHRENIA, UNSPECIFIED 10/26/2018 ZAFAR CRENSHAW MD Ot F31.9 BIPOLAR DISORDER, UNSPECIFIED 10/26/2018 ZAFAR CRENSHAW MD Ot F90.9 ATTENTION-DEFICIT HYPERACTIVITY DISORDER 10/26/2018 ZAFAR CRENSHAW MD Ot J45.909 UNSPECIFIED ASTHMA, UNCOMPLICATED 10/26/2018 ZAFAR CRENSHAW MD Ot R06.00 DYSPNEA, UNSPECIFIED 10/26/2018 ZAFAR CRENSHAW MD Ot R06.02 SHORTNESS OF BREATH 10/26/2018 ZAFAR CRENSHAW MD Ot T38.0X5A ADVERSE EFFECT OF GLUCOCORT/SYNTH ANALOG 10/26/2018 ZAFAR CRENSHAW MD Ot Z80.42 FAMILY HISTORY OF MALIGNANT NEOPLASM OF 10/26/2018 ZAFAR CRENSHAW MD Ot Z82.49 FAMILY HX OF ISCHEM HEART DIS AND OTH DI 10/26/2018 ZAFAR CRENSHAW MD Ot Z87.01 PERSONAL HISTORY OF PNEUMONIA (RECURRENT 12/31/2019 MOLLY SILVESTRE MD Ot 511.9 PLEURAL EFFUSION NOS 12/31/2019 MOLLY SILVESTRE MD Ot 512.89 OTHER PNEUMOTHORAX 12/31/2019 MOLLY SILVESTRE MD Ot V15.59 PERSONAL HISTORY OF OTHER INJURY 12/31/2019 MOLLY SILVESTRE MD Ot 48 6 PNEUMONIA, ORGANISM NOS 12/31/2019 MOLLY SILVESTRE MD Ot 511.9 PLEURAL EFFUSION NOS 12/31/2019 Ot 786.09 RES PIRATORY ABNORM NEC 12/31/[address] PAIN NOS 12/31/2019 Ot 807.00 FRA CTURE RIB NOS- CLOSED 12/31/2019 Ot E000.0 CIV BRIANA ACTIVITY DONE FOR INCOME OR PAY 12/31/2019 Ot E849.3 ACC ON INDUSTR PREMISES 12/31/2019 Ot E928.9 ACC IDENT NOS 12/31/2019 KONRAD ORTIZ, MOLLY Reynolds Ot 807.00 FRACTURE RIB NOS-CLOSED 12/31/2019 KONRAD ORTIZ, MOLLY Reynolds Ot E000.0 CIVILIAN ACTIVITY DONE FOR INCOME OR PAY 12/31/2019 KONRAD ORTIZ, MOLLY Reynolds Ot E849.3 ACC ON INDUSTR PREMISES 12/31/2019 MOLLY SILVESTRE MD Ot E928.9 ACCIDENT NOS 01/02/2020 KONRAD ORTIZ, MOLLY S Ot 511.9 PLEURAL EFFUSION NOS 01/02/2020 KONRAD ORTIZ, MOLLY S Ot 512.89 OTHER PNEUMOTHORAX 01/02/2020 KONRAD ORTIZ, MOLLY S Ot V15.59 PERSONAL HISTORY OF OTHER INJURY 01/02/2020 KONRAD ORTIZ, MOLLY Reynolds Ot 48 6 PNEUMONIA, ORGANISM NOS 01/02/2020 KONRAD ORTIZ, MOLLY S Ot 511.9 PLEURAL EFFUSION NOS 01/02/2020 Ot 786.09 RES PIRATORY ABNORM NEC 01/02/[address] PAIN NOS 01/02/2020 Ot 807.00 FRA CTURE RIB NOS- CLOSED 01/02/2020 Ot E000.0 CIV BRIANA ACTIVITY DONE FOR INCOME OR PAY 01/02/2020 Ot E849.3 ACC ON INDUSTR PREMISES 01/02/2020 Ot E928.9 ACC IDENT NOS 01/02/2020 KONRAD ORTIZ, MOLLY Reynolds Ot 807.00 FRACTURE RIB NOS-CLOSED 01/02/2020 KONRAD ORTIZ, MOLLY Reynolds Ot E000.0 CIVILIAN ACTIVITY DONE FOR INCOME OR PAY 01/02/2020 MOLLY SILVESTRE MD Ot E849.3 ACC ON INDUSTR PREMISES 01/02/2020 MOLLY SILVESTRE MD Ot E928.9 ACCIDENT NOS 01/02/2020 DOVE DO, CRESENCIO Ot A41.9 SEPSIS, UNSPECIFIED ORGANISM 01/02/2020 DOVE DO, CRESENCIO Ot F17.21 0 NICOTINE DEPENDENCE, CIGARETTES, UNCOMPL 01/02/2020 DOVE DO, CRESENCIO Ot F20.9 SCHIZOPHRENIA, UNSPECIFIED 01/02/2020 DOVE DO, CRESENCIO Ot F31.9 BIPOLAR DISORDER, UNSPECIFIED 01/02/2020 DOVE DO, CRESENCIO Ot F90.9 ATTENTION-DEFICIT HYPERACTIVITY DISORDER 01/02/2020 DOVE DO, CRESENCIO Ot G47.9 SLEEP DISORDER, UNSPECIFIED 01/02/2020 DOVE DO, CRESENCIO Ot J45.90 9 UNSPECIFIED ASTHMA, UNCOMPLICATED 01/02/2020 DOVE DO, CRESENCIO Ot N45.3 EPIDIDYMO-ORCHITIS 01/02/2020 DOVE DO, CRESENCIO Ot R65.20 SEVERE SEPSIS WITHOUT SEPTIC SHOCK 01/03/2020 DOVE DO, CRESENCIO Ot A41.9 SEPSIS, UNSPECIFIED ORGANISM 01/03/2020 DOVE DO, CRESENCIO Ot F17.21 0 NICOTINE DEPENDENCE, CIGARETTES, UNCOMPL 01/03/2020 DOVE DO, CRESENCIO Ot F20.9 SCHIZOPHRENIA, UNSPECIFIED 01/03/2020 DOVE DO, CRESENCIO Ot F31.9 BIPOLAR DISORDER, UNSPECIFIED 01/03/2020 DOVE DO, CRESENCIO Ot F90.9 ATTENTION-DEFICIT HYPERACTIVITY DISORDER 01/03/2020 DOVE DO, CRESENCIO Ot G47.9 SLEEP DISORDER, UNSPECIFIED 01/03/2020 DOVE DO, CRESENCIO Ot J45.90 9 UNSPECIFIED ASTHMA, UNCOMPLICATED 01/03/2020 DOVE DO, CRESENCIO Ot N45.3 EPIDIDYMO-ORCHITIS 01/03/2020 DOVE DO, CRESENCIO Ot R65.20 SEVERE SEPSIS WITHOUT SEPTIC SHOCK Procedures Code Description Performed By Per formed On 34.09 OTHE R PLEURAL INCISION 11/11/2014 04.81 ANES TH INJEC PERIPH NERV 11/12/2014 34.51 DECO RTICATION OF LUNG 12/03/2014 33.23 OTHE R BRONCHOSCOPY 12/09/2014 96.56 BRON CH/TRACH LAVAGE NEC 12/09/2014 35G212H IN SERTION OF INFUSION DEV INTO L INNOM V 01/01/2020 Results Test Result Range Complete blood count (CBC) with automate d white blood cell (WBC) differential - 12/31/19 12:55 Blood leukocytes automated count (number/volume) 25.2 10*3/uL 4.3-11.0 Blood erythrocytes automated count (number/volume) 5.25 10*6/uL 4.35-5.85 Venous blood hemoglobin measurement (mass/volume) 15.3 g/dL 13.3-17.7 Blood hematocrit (volume fraction) 45 % 40-54 Automated erythrocyte mean corpuscular volume 87 [ foz_us] 80-99 Automated erythrocyte mean corpuscular h emoglobin (mass per erythrocyte) 29 pg 25-34 Automated erythrocyte mean corpuscular h emoglobin concentration measurement (mass/volume) 34 g/dL 32-36 Automated erythrocyte distribution width ratio 13. 5 % 10.0- 14.5 Automated blood platelet count (count/volume) 282 10*3/uL 130-400 Automated blood platelet mean volume measurement 9.6 [foz_us] 7.4-10.4 Automated blood neutrophils/100 leukocytes 93 % 42-75 Automated blood lymphocytes/100 leukocytes 2 % 12-44 Blood monocytes/100 leukocytes 3 % 0-12 Automated blood eosinophils/100 leukocytes 3 % 0-10 Automated blood basophils/100 leukocytes 0 % 0-10 Blood neutrophils automated count (number/volume) 23.4 10*3 1.8-7.8 Blood lymphocytes automated count (number/volume) 0.4 10*3 1.0-4.0 Blood monocytes automated count (number/volume) 0. 8 10*3 0.0-1.0 Automated eosinophil count 0.6 10*3/uL 0 .0-0.3 Automated blood basophil count (count/volume) 0.0 10*3/uL 0.0-0.1 Whole blood basic metabolic panel - 01/16 12:55 Serum or plasma sodium measurement (moles/volume) 135 mmol/L 135-145 Serum or plasma potassium measurement (moles/volume) 3.9 mmol/L 3.6-5.0 Serum or plasma chloride measurement (moles/volume) 97 mmol/L 98-107 Carbon dioxide 24 mmol/L 21-32 Serum or plasma anion gap determination (moles/volume) 14 mmol/L 5-14 Serum or plasma urea nitrogen measurement (mass/volume ) 15 mg/dL 7-18 Serum or plasma creatinine measurement (mass/volume) 1.17 mg/dL 0.60-1.30 Serum or plasma urea nitrogen/creatinine mass ratio 13 NRG Serum or plasma creatinine measurement w ith calculation of estimated glomerular filtration rate > NRG Serum or plasma glucose measurement (mass/volume) 122 mg/dL 70-105 Serum or plasma calcium measurement (mass/volume) 10.3 mg/dL 8.5-10.1 Manual absolute plasma cell count - 0 01/16 12:55 Blood monocytes/100 leukocytes 2 % NRG Manual blood segmented neutrophils/100 leukocytes 71 % NRG Blood band neutrophils/100 leukocytes 26 % NRG Manual blood lymphocytes/100 leukocytes 1 % NRG Manual eosinophils/100 leukocytes in nose 0 % NRG Manual blood basophils/100 leukocytes 0 % NRG Blood erythrocyte morphology finding identification NORMAL NRG Bacterial blood culture - 12/31/19 13:30 Bacterial blood culture NG NRG Bacterial blood culture - 12/31/19 13:45 Bacterial blood culture NG NRG Complete urinalysis with reflex to cultu re - 12/31/19 15:30 Urine color determination YELLOW NRG Urine clarity determination SL CLOUDY N RG Urine pH measurement by test strip 5.5 5-9 Specific gravity of urine by test strip 1.025 1.016-1.022 Urine protein assay by test strip, semi-quantitative 1+ NEGATIVE Urine glucose detection by automated test strip NE GATIVE NEGATIVE Erythrocytes detection in urine sediment by light micr oscopy TRACE-L NEGATIVE Urine ketones detection by automated test strip 1+ NEGATIVE Urine nitrite detection by test strip NEGATIVE NEGATIVE Urine total bilirubin detection by test strip NEGA TIVE NEGATIVE Urine urobilinogen measurement by automated test strip (mass/volume) 0.2 mg/dL < = 1.0 Urine leukocyte esterase detection by dipstick 2+ NEGATIVE Automated urine sediment erythrocyte cou nt by microscopy (number/high power field) [HPF] NRG Automated urine sediment leukocyte count by microscopy (number/high power field) [HPF] NRG Bacteria detection in urine sediment by light microsco py FEW NRG Crystals detection in urine sediment by light microsco py PRESENT NRG Casts detection in urine sediment by light microscopy NONE NRG Mucus detection in urine sediment by light microscopy SMALL NRG Complete urinalysis with reflex to culture YES NRG Amorphous sediment detection in urine sediment by ligh t microscopy FEW CRISELDA URATES NRG Bacterial urine culture - 12/31/19 15:30 Bacterial urine culture NG NRG Chlamydia DNA amp probe, urine - 0 15:30 Chlamydia DNA amp probe, urine Not Detected Not Detected Urine Neisseria gonorrhoeae DNA assay - 12/31/19 15:30 Gonorrhea amp DNA-urine Not Detected No t Detected Complete blood count (CBC) with automate d white blood cell (WBC) differential - 01/01/20 04:31 Blood leukocytes automated count (number/volume) 28.9 10*3/uL 4.3-11.0 Blood erythrocytes automated count (number/volume) 4.48 10*6/uL 4.35-5.85 Venous blood hemoglobin measurement (mass/volume) 13.5 g/dL 13.3-17.7 Blood hematocrit (volume fraction) 39 % 40-54 Automated erythrocyte mean corpuscular volume 88 [ foz_us] 80-99 Automated erythrocyte mean corpuscular h emoglobin (mass per erythrocyte) 30 pg 25-34 Automated erythrocyte mean corpuscular h emoglobin concentration measurement (mass/volume) 34 g/dL 32-36 Automated erythrocyte distribution width ratio 13. 6 % 10.0- 14.5 Automated blood platelet count (count/volume) 223 10*3/uL 130-400 Automated blood platelet mean volume measurement 9.3 [foz_us] 7.4-10.4 Automated blood neutrophils/100 leukocytes 90 % 42-75 Automated blood lymphocytes/100 leukocytes 3 % 12-44 Blood monocytes/100 leukocytes 6 % 0-12 Automated blood eosinophils/100 leukocytes 1 % 0-10 Automated blood basophils/100 leukocytes 0 % 0-10 Blood neutrophils automated count (number/volume) 26.0 10*3 1.8-7.8 Blood lymphocytes automated count (number/volume) 1.0 10*3 1.0-4.0 Blood monocytes automated count (number/volume) 1. 8 10*3 0.0-1.0 Automated eosinophil count 0.2 10*3/uL 0 .0-0.3 Automated blood basophil count (count/volume) 0.0 10*3/uL 0.0-0.1 Comprehensive metabolic panel - 01/01/20 04:31 Serum or plasma sodium measurement (moles/volume) 135 mmol/L 135-145 Serum or plasma potassium measurement (moles/volume) 4.4 mmol/L 3.6-5.0 Serum or plasma chloride measurement (moles/volume) 104 mmol/L 98-107 Carbon dioxide 21 mmol/L 21-32 Serum or plasma anion gap determination (moles/volume) 10 mmol/L 5-14 Serum or plasma urea nitrogen measurement (mass/volume ) 11 mg/dL 7-18 Serum or plasma creatinine measurement (mass/volume) 0.91 mg/dL 0.60-1.30 Serum or plasma urea nitrogen/creatinine mass ratio 12 NRG Serum or plasma creatinine measurement w ith calculation of estimated glomerular filtration rate > NRG Serum or plasma glucose measurement (mass/volume) 113 mg/dL 70-105 Serum or plasma calcium measurement (mass/volume) 8.7 mg/dL 8.5-10.1 Serum or plasma total bilirubin measurement (mass/volu me) 0.8 mg/dL 0.1-1.0 Serum or plasma alkaline phosphatase chaim surement (enzymatic activity/volume) 101 U/L 40-136 Serum or plasma aspartate aminotransfera se measurement (enzymatic activity/volume) 20 U/L 5-34 Serum or plasma alanine aminotransferase measurement (enzymatic activity/volume) 15 U/L 0-55 Serum or plasma protein measurement (mass/volume) 6.1 g/dL 6.4-8.2 Serum or plasma albumin measurement (mass/volume) 3.2 g/dL 3.2-4.5 CALCIUM CORRECTED 9.3 mg/dL 8.5-10.1 Blood lactic acid measurement (moles/vol ume) - 01/01/20 07:00 Blood lactic acid measurement (moles/volume) 1.41 mmol/L 0.50-2.00 Vancomycin trough - 01/01/20 14:05 Vancomycin trough 10.1 ug/mL 10.0-20.0 Blood lactic acid measurement (moles/vol ume) - 01/01/20 18:30 Blood lactic acid measurement (moles/volume) 3.07 mmol/L 0.50-2.00 Complete blood count (CBC) with automate d white blood cell (WBC) differential - 01/01/20 18:30 Blood leukocytes automated count (number/volume) 27.3 10*3/uL 4.3-11.0 Blood erythrocytes automated count (number/volume) 4.40 10*6/uL 4.35-5.85 Venous blood hemoglobin measurement (mass/volume) 13.9 g/dL 13.3-17.7 Blood hematocrit (volume fraction) 40 % 40-54 Automated erythrocyte mean corpuscular volume 92 [ foz_us] 80-99 Automated erythrocyte mean corpuscular h emoglobin (mass per erythrocyte) 32 pg 25-34 Automated erythrocyte mean corpuscular h emoglobin concentration measurement (mass/volume) 35 g/dL 32-36 Automated erythrocyte distribution width ratio 13. 6 % 10.0- 14.5 Automated blood platelet count (count/volume) 187 10*3/uL 130-400 Automated blood platelet mean volume measurement 9.7 [foz_us] 7.4-10.4 Automated blood neutrophils/100 leukocytes 92 % 42-75 Automated blood lymphocytes/100 leukocytes 3 % 12-44 Blood monocytes/100 leukocytes 4 % 0-12 Automated blood eosinophils/100 leukocytes 1 % 0-10 Automated blood basophils/100 leukocytes 0 % 0-10 Blood neutrophils automated count (number/volume) 25.2 10*3 1.8-7.8 Blood lymphocytes automated count (number/volume) 0.8 10*3 1.0-4.0 Blood monocytes automated count (number/volume) 1. 1 10*3 0.0-1.0 Automated eosinophil count 0.2 10*3/uL 0 .0-0.3 Automated blood basophil count (count/volume) 0.0 10*3/uL 0.0-0.1 Comprehensive metabolic panel - 01/01/20 18:30 Serum or plasma sodium measurement (moles/volume) 136 mmol/L 135-145 Serum or plasma potassium measurement (moles/volume) 3.8 mmol/L 3.6-5.0 Serum or plasma chloride measurement (moles/volume) 105 mmol/L 98-107 Carbon dioxide 22 mmol/L 21-32 Serum or plasma anion gap determination (moles/volume) 9 mmol/L 5-14 Serum or plasma urea nitrogen measurement (mass/volume ) 10 mg/dL 7-18 Serum or plasma creatinine measurement (mass/volume) 1.00 mg/dL 0.60-1.30 Serum or plasma urea nitrogen/creatinine mass ratio 10 NRG Serum or plasma creatinine measurement w ith calculation of estimated glomerular filtration rate > NRG Serum or plasma glucose measurement (mass/volume) 194 mg/dL 70-105 Serum or plasma calcium measurement (mass/volume) 8.6 mg/dL 8.5-10.1 Serum or plasma total bilirubin measurement (mass/volu me) 0.5 mg/dL 0.1-1.0 Serum or plasma alkaline phosphatase chaim surement (enzymatic activity/volume) 94 U/L 40-136 Serum or plasma aspartate aminotransfera se measurement (enzymatic activity/volume) 15 U/L 5-34 Serum or plasma alanine aminotransferase measurement (enzymatic activity/volume) 12 U/L 0-55 Serum or plasma protein measurement (mass/volume) 5.4 g/dL 6.4-8.2 Serum or plasma albumin measurement (mass/volume) 2.9 g/dL 3.2-4.5 CALCIUM CORRECTED 9.5 mg/dL 8.5-10.1 Serum or plasma lactate measurement (mol es/volume) - 01/01/20 20:30 Serum or plasma lactate measurement (moles/volume) 2.54 mmol/L 0.50-2.00 Serum or plasma lactate measurement (mol es/volume) - 01/01/20 22:51 Serum or plasma lactate measurement (moles/volume) 0.70 mmol/L 0.50-2.00 Complete blood count (CBC) with automate d white blood cell (WBC) differential - 01/02/20 03:10 Blood leukocytes automated count (number/volume) 23.1 10*3/uL 4.3-11.0 Blood erythrocytes automated count (number/volume) 3.70 10*6/uL 4.35-5.85 Venous blood hemoglobin measurement (mass/volume) 11.0 g/dL 13.3-17.7 Blood hematocrit (volume fraction) 33 % 40-54 Automated erythrocyte mean corpuscular volume 89 [ foz_us] 80-99 Automated erythrocyte mean corpuscular h emoglobin (mass per erythrocyte) 30 pg 25-34 Automated erythrocyte mean corpuscular h emoglobin concentration measurement (mass/volume) 33 g/dL 32-36 Automated erythrocyte distribution width ratio 13. 4 % 10.0- 14.5 Automated blood platelet count (count/volume) 199 10*3/uL 130-400 Automated blood platelet mean volume measurement 9.7 [foz_us] 7.4-10.4 Automated blood neutrophils/100 leukocytes 87 % 42-75 Automated blood lymphocytes/100 leukocytes 5 % 12-44 Blood monocytes/100 leukocytes 7 % 0-12 Automated blood eosinophils/100 leukocytes 1 % 0-10 Automated blood basophils/100 leukocytes 0 % 0-10 Blood neutrophils automated count (number/volume) 20.1 10*3 1.8-7.8 Blood lymphocytes automated count (number/volume) 1.2 10*3 1.0-4.0 Blood monocytes automated count (number/volume) 1. 6 10*3 0.0-1.0 Automated eosinophil count 0.2 10*3/uL 0 .0-0.3 Automated blood basophil count (count/volume) 0.0 10*3/uL 0.0-0.1 Comprehensive metabolic panel - 01/02/20 03:10 Serum or plasma sodium measurement (moles/volume) 141 mmol/L 135-145 Serum or plasma potassium measurement (moles/volume) 3.7 mmol/L 3.6-5.0 Serum or plasma chloride measurement (moles/volume) 111 mmol/L 98-107 Carbon dioxide 22 mmol/L 21-32 Serum or plasma anion gap determination (moles/volume) 8 mmol/L 5-14 Serum or plasma urea nitrogen measurement (mass/volume ) 8 mg/dL 7-18 Serum or plasma creatinine measurement (mass/volume) 0.89 mg/dL 0.60-1.30 Serum or plasma urea nitrogen/creatinine mass ratio 9 NRG Serum or plasma creatinine measurement w ith calculation of estimated glomerular filtration rate > NRG Serum or plasma glucose measurement (mass/volume) 101 mg/dL 70-105 Serum or plasma calcium measurement (mass/volume) 7.8 mg/dL 8.5-10.1 Serum or plasma total bilirubin measurement (mass/volu me) 0.5 mg/dL 0.1-1.0 Serum or plasma alkaline phosphatase chaim surement (enzymatic activity/volume) 85 U/L 40-136 Serum or plasma aspartate aminotransfera se measurement (enzymatic activity/volume) 14 U/L 5-34 Serum or plasma alanine aminotransferase measurement (enzymatic activity/volume) 12 U/L 0-55 Serum or plasma protein measurement (mass/volume) 4.9 g/dL 6.4-8.2 Serum or plasma albumin measurement (mass/volume) 2.5 g/dL 3.2-4.5 CALCIUM CORRECTED 9.0 mg/dL 8.5-10.1 Complete blood count (CBC) with automate d white blood cell (WBC) differential - 01/03/20 04:44 Blood leukocytes automated count (number/volume) 17.2 10*3/uL 4.3-11.0 Blood erythrocytes automated count (number/volume) 3.61 10*6/uL 4.35-5.85 Venous blood hemoglobin measurement (mass/volume) 10.7 g/dL 13.3-17.7 Blood hematocrit (volume fraction) 32 % 40-54 Automated erythrocyte mean corpuscular volume 88 [ foz_us] 80-99 Automated erythrocyte mean corpuscular h emoglobin (mass per erythrocyte) 30 pg 25-34 Automated erythrocyte mean corpuscular h emoglobin concentration measurement (mass/volume) 34 g/dL 32-36 Automated erythrocyte distribution width ratio 13. 7 % 10.0- 14.5 Automated blood platelet count (count/volume) 227 10*3/uL 130-400 Automated blood platelet mean volume measurement 9.2 [foz_us] 7.4-10.4 Automated blood neutrophils/100 leukocytes 85 % 42-75 Automated blood lymphocytes/100 leukocytes 8 % 12-44 Blood monocytes/100 leukocytes 6 % 0-12 Automated blood eosinophils/100 leukocytes 1 % 0-10 Automated blood basophils/100 leukocytes 0 % 0-10 Blood neutrophils automated count (number/volume) 14.5 10*3 1.8-7.8 Blood lymphocytes automated count (number/volume) 1.3 10*3 1.0-4.0 Blood monocytes automated count (number/volume) 1. 1 10*3 0.0-1.0 Automated eosinophil count 0.2 10*3/uL 0 .0-0.3 Automated blood basophil count (count/volume) 0.0 10*3/uL 0.0-0.1 Comprehensive metabolic panel - 01/03/20 04:44 Serum or plasma sodium measurement (moles/volume) 139 mmol/L 135-145 Serum or plasma potassium measurement (moles/volume) 3.4 mmol/L 3.6-5.0 Serum or plasma chloride measurement (moles/volume) 109 mmol/L 98-107 Carbon dioxide 23 mmol/L 21-32 Serum or plasma anion gap determination (moles/volume) 7 mmol/L 5-14 Serum or plasma urea nitrogen measurement (mass/volume ) 6 mg/dL 7-18 Serum or plasma creatinine measurement (mass/volume) 1.08 mg/dL 0.60-1.30 Serum or plasma urea nitrogen/creatinine mass ratio 6 NRG Serum or plasma creatinine measurement w ith calculation of estimated glomerular filtration rate > NRG Serum or plasma glucose measurement (mass/volume) 90 mg/dL 70-105 Serum or plasma calcium measurement (mass/volume) 8.0 mg/dL 8.5-10.1 Serum or plasma total bilirubin measurement (mass/volu me) 0.4 mg/dL 0.1-1.0 Serum or plasma alkaline phosphatase chaim surement (enzymatic activity/volume) 101 U/L 40-136 Serum or plasma aspartate aminotransfera se measurement (enzymatic activity/volume) 13 U/L 5-34 Serum or plasma alanine aminotransferase measurement (enzymatic activity/volume) 10 U/L 0-55 Serum or plasma protein measurement (mass/volume) 5.3 g/dL 6.4-8.2 Serum or plasma albumin measurement (mass/volume) 2.5 g/dL 3.2-4.5 CALCIUM CORRECTED 9.2 mg/dL 8.5-10.1 Encounters ACCT No. Visit Date/Time Discharge Status Pt. Type Provider Facility Loc./Unit Complaint [id number] 12/26/2019 17:40:00 12/26/2019 23:59:5 9 CLS Outpatient ANDER ARRIAGA APRN [facility] [id number] 12/31/2019 13:40:00 020 14:10:00 DIS Inpatient DERRELL DO, CRESENCIO [facility] 4TH R EPIDIDYMO-ORCHITIS,LE UKOCYTOSIS [id number] 06/22/2018 17:54:00 018 19:32:00 DIS Emergency ZAFAR CRENSHAW MD [facility] ER SHORTNESS OF BR EATH [id number] 07/18/2016 18:46:00 016 22:06:00 DIS Emergency JUNE AVERY APRN [facility] ER COUGH/CHEST AND BACK PA IN [id number] 10/05/2015 11:47:00 015 13:59:00 DIS Emergency GAYLE IVEY [facility] ER LEFT HAND INJURY [id number] 03/23/2015 00:12:00 015 23:59:59 CLS Preadmit MOLLY SILVESTRE MD [facility] LAB CVAR [id number] 12/22/2014 12:13:00 015 00:01:00 DIS Outpatient MOLLY SILVESTRE MD [facility] LAB CVAR [id number] 12/02/2014 12:22:00 02/13/2 015 10:30:00 DIS Inpatient DERRELL VALDOVINOS, CRESENCIO [facility] SURGICAL PNEUMONIA THROMBOCYTOSI S [id number] 11/27/2014 13:58:00 015 23:59:59 CLS Outpatient MOLLY SILVESTRE MD [facility] RAD PNUEMONIA [id number] 11/18/2014 16:11:00 015 15:45:00 DIS Inpatient MOLLY SILVESTRE MD [facility] SURGICAL RT LOWER LOBE PNUEMONIA [id number] 11/18/2014 15:06:00 015 23:59:59 CLS Outpatient MOLLY SILVESTRE MD [facility] RAD POST TRAUMA RT PNUEOTH ORAX FEVER [id number] 11/11/2014 12:54:00 015 14:50:00 DIS Inpatient MOLLY SILVESTRE MD [facility] SURGICAL RIGHT HEMOPNEUMOTHORAX [id number] 02/27/2015 09:46:00 Document Registration [id number] 12/31/2014 09:45:00 Document Registration
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
== END 2020-01-03 14:10 | disposition home or self-care (01) | DRG 872 ==
LOC: EDUNIT# 12:27 → ER 12:28 → 4TH 13:40 → ICU 01-01 19:27 → 4TH 01-02 15:55
PROVIDERS: ADMIT Family Medicine; ATTEND Internal Medicine
PROC: 05H433Z Insertion of Infusion Device into Left Innominate Vein, Percutaneous Approach (ICD-10-PCS; principal; 2020-01-01)
DX: A41.9 Sepsis, unspecified organism (principal); R65.20 Severe sepsis without septic shock; N45.3 Epididymo-orchitis; F17.210 Nicotine dependence, cigarettes, uncomplicated; F20.9 Schizophrenia, unspecified; F31.9 Bipolar disorder, unspecified; F90.9 Attention-deficit hyperactivity disorder, unspecified type; J45.909 Unspecified asthma, uncomplicated; G47.9 Sleep disorder, unspecified
CPT/HCPCS: 36415; 71045; 74019; 76870; 80048; 80053; 80202; 81000; 83605; 85007; 85025; 85027; 87040; 87088; 87491; 87591

== ENCOUNTER → 2020-07-31 | Outpatient (CLI) | payer MEDICAID ==
[~2020-07-31] MED LIST changes: +ARIP1064 IM; +CETI10TA49 PO; +FLUT9.9S NS; +LEVO750T39 PO; +NAPR500T8 PO; +POTA2TAB5 PO; +RT-ALBUTEROL SULF 2.5 MG/3 ML PRE-MIX VIAL INH ONE
== END ==
LOC: RT 13:00
PROVIDERS: ATTEND Nurse Practitioner Community Health
DX: J43.1 Panlobular emphysema (principal)
CPT/HCPCS: 94060; 94726; 94729

== ENCOUNTER 2020-09-24 17:09 | Emergency (ER) | payer MEDICAID ==
[~2020-09-24] VITALS: Ht 177.8 cm; Wt 59.0 kg
[~2020-09-24 17:09] MED LIST changes: -RT-ALBUTEROL SULF 2.5 MG/3 ML PRE-MIX VIAL INH ONE
[2020-09-24 17:13] VITALS: BP 122/75
--- NOTE | 2020-09-24 17:23 | ED Integumentary General ---
General Stated Complaint: SPIDER BITE ON STOMACH Source: patient Exam Limitations: no limitations History of Present Illness Date Seen by Provider: Sep 24, 2020 Time Seen by Provider: 17:22 Initial Comments To ER with a suspected spider bite to the lower abdomen that began 2 to 3 days ago. He was seen at [facility] at that time and given prescription for Bactrim which she has been taking without improvement. Denies fevers or chills. Timing/Duration: getting worse Severity: moderate Associated Symptoms: denies symptoms Allergies and Home Medications Allergies Coded Allergies: No Known Drug Allergies (Unverified , 12/02/14) Home Medications Aripiprazole Lauroxil 1,064 Mg/3.9 Ml Suser.syr, 1,064 MG IM N3MAXDS, (Reported) RECIEVES THIS INJECTION FROM [facility]- LAST DOSE 11-12-2019 Cetirizine HCl 10 Mg Tablet, 10 MG PO DAILY PRN for ALLERGY SYMPTOMS, (Reported) Dapsone 100 Mg Tablet, 100 MG PO DAILY Prescribed by: JUNE AVERY on 09/24/20 1754 Fluticasone Propionate 9.9 Ml [place].susp, 1 SPRAY NS DAILY PRN for CONGESTION, (Reported) 1 SPRAY EACH NARE DAILY Hydrocodone/Acetaminophen 1 Each Tablet, 1 TAB PO Q6H Prescribed by: JORGE ALBERTO LAFLEUR on 01/03/20 1440 Levofloxacin 750 Mg Tablet, 750 MG PO DAILY Prescribed by: JORGE ALBERTO LAFLEUR on 01/03/20 1035 Naproxen 500 Mg Tablet.dr, 500 MG PO Q12H PRN for PAIN-MILD (1-4), (Reported) Potassium Gluconate 90 Mg Tablet, 90 MG PO DAILY, (Reported) Patient Home Medication List Home Medication List Reviewed: Yes Review of Systems Review of Systems Constitutional: see HPI; No chills, No fever EENTM: see HPI Respiratory: no symptoms reported Cardiovascular: no symptoms reported Genitourinary: no symptoms reported Musculoskeletal: no symptoms reported Skin: see HPI Psychiatric/Neurological: No Symptoms Reported Endocrine: No Symptoms Reported Hematologic/Lymphatic: No Symptoms Reported Past Biqdxkg-Nlyiup-Jtcswf Hx Patient Social History Type Used: Cigarettes 2nd Hand Smoke Exposure: Yes Recent Foreign Travel: No Contact w/Someone Who Travel: No Recent Hopitalizations: No Immunizations Up To Date Tetanus Booster (TDap): Unknown Date of Influenza Vaccine: Dec 02, 2014 Seasonal Allergies Seasonal Allergies: Yes Past Medical History Surgeries: Yes (chest tube) Orthopedic Respiratory: Yes Asthma, Pneumonia Cardiac: No Neurological: No Reproductive Disorders: No Sexually Transmitted Disease: No HIV/AIDS: No Genitourinary: No Gastrointestinal: No Musculoskeletal: No Endocrine: No Loss of Vision: Denies Hearing Impairment: Hard of Hearing Cancer: No Psychosocial: Yes ADD/ADHD, Sleep Difficulties, Bipolar, Schizophrenia Integumentary: Yes Eczema Blood Disorders: No Adverse Reaction/Blood Tranf: No Family Medical History Alcoholism Alzheimer's disease Grandparents (Maternal Grandmother) Arthritis 19 MOTHER Grandparents (Maternal Grandmother) Asthma 19 MOTHER Cardiovascular disease Grandparents (Maternal Grandfather-Heart disease) Cataracts Grandparents (Paternal Grandmother Maternal Grandfather) Congenital heart disease 19 MOTHER (Woolfe-Parkinson White Syndrome- Congenital Heart Disease) FH: Crohn's disease 19 MOTHER FH: sleep apnea 19 FATHER Glaucoma 19 MOTHER Grandparents (Maternal Grandfather) Headache disorder G8 SISTER (Migraines) Hypertension 19 MOTHER G8 SISTER Myocardial infarction Grandparents (Maternal Grandfather Paternal Grandfather-) Not obtainable due to adoption Grandparents (Maternal Grandmother) Osteoporosis 19 MOTHER Prostate cancer Grandparents (Maternal Grandfather) Psychosocial problem 19 MOTHER (Bipolal Anxiety) Thyroid disease 19 MOTHER (Hypothyroid) No Family History of: AIDS Abdominal aortic aneurysm Dillingham's disease Aphasia Cancer of mouth Colon cancer Completed stroke Congenital disease Coronary thrombosis Cystic fibrosis Deafness or hearing loss Dementia Diabetes mellitus Drug abuse Dysphasia Fibrocystic disease of breast Gastroenteritis Hypercholesterolemia Infertility Kidney disease Neoplasm Parkinson's disease Respiratory disorder Seizure disorder Severe allergy Tuberculosis Visual disorder No Pertinent Family Hx Physical Exam Vital Signs Vital Signs - First Documented 09/24/20 17:13 Temp 36.8 Pulse 88 Resp 18 B/P (MAP) 122/75 (91) Pulse Ox 99 O2 Delivery Room Air Capillary Refill : General Appearance: WD/WN, no apparent distress Neck: non-tender, full range of motion Cardiovascular: regular rate, rhythm, no murmur Respiratory: no respiratory distress, no accessory muscle use Neurologic/Psychiatric: alert, normal mood/affect, oriented x 3 Skin: normal color, warm/dry Skin Problem Character: abscess, other (There is a large infraumbilical area of cellulitis. There is a central punctum which she states has been draining pus. On bedside ultrasound there is an area lateral to this punctum on the right that appears to be a fluid collection.) Procedures/Interventions I&D : Blade Size: 11 Packing/Drain: Idoform 11/02 Progress Anesthetized with lidocaine 1% without epinephrine. Incision made with 11 blade scalpel, loculations broken up with curved hemostats. Bloody material expressed but no purulent material. Culture collected and sent to lab, cavity irrigated then packed with quarter inch iodoform Progress/Results/Core Measures Results/Orders Lab Results Laboratory Tests Test 09/24/20 17:25 Range/Units White Blood Count 8.4 4.3-11.0 10^3/uL Red Blood Count 5.36 4.30-5.52 10^6/uL Hemoglobin 15.9 13.3-17.7 g/dL Hematocrit 47 40-54 % Mean Corpuscular Volume 87 80-99 fL Mean Corpuscular Hemoglobin 30 25-34 pg Mean Corpuscular Hemoglobin Concent 34 32-36 g/dL Red Cell Distribution Width 12.4 10.0-14.5 % Platelet Count 340 130-400 10^3/uL Mean Platelet Volume 8.8 L 9.0-12.2 fL Immature Granulocyte % (Auto) 0 % Neutrophils (%) (Auto) 72 42-75 % Lymphocytes (%) (Auto) 16 12-44 % Monocytes (%) (Auto) 11 0-12 % Eosinophils (%) (Auto) 1 0-10 % Basophils (%) (Auto) 0 0-10 % Neutrophils # (Auto) 6.0 1.8-7.8 10^3/uL Lymphocytes # (Auto) 1.3 1.0-4.0 10^3/uL Monocytes # (Auto) 0.9 0.0-1.0 10^3/uL Eosinophils # (Auto) 0.1 0.0-0.3 10^3/uL Basophils # (Auto) 0.0 0.0-0.1 10^3/uL Immature Granulocyte # (Auto) 0.0 0.0-0.1 10^3/uL Sodium Level 137 135-145 MMOL/L Potassium Level 3.5 L 3.6-5.0 MMOL/L Chloride Level 99 98-107 MMOL/L Carbon Dioxide Level 23 21-32 MMOL/L Anion Gap 15 H 5-14 MMOL/L Blood Urea Nitrogen 7 7-18 MG/DL Creatinine 1.05 0.60-1.30 MG/DL Estimat Glomerular Filtration Rate > 60 BUN/Creatinine Ratio 7 Glucose Level 86 70-105 MG/DL Calcium Level 8.8 8.5-10.1 MG/DL C-Reactive Protein High Sensitivity 8.16 H 0.00-0.50 MG/DL My Orders Orders - JUNE AVERY APRN Cbc With Automated Diff (09/24/20 17:21) Hs C Reactive Protein (09/24/20 17:21) Basic Metabolic Panel (09/24/20 17:21) Ed Iv/Invasive Line Start (09/24/20 17:21) Wound Culture (09/24/20 17:21) Ceftriaxone For Iv Use (Rocephin For I (09/24/20 17:30) Vancomycin Injection (Vancomycin Injecti (09/24/20 17:30) Fentanyl Injection (Sublimaze Injection (09/24/20 17:30) Vancomycin Injection (Vancomycin Injecti (09/24/20 17:40) Ns (Ivpb) (Sodium Chloride 0.9%) (09/24/20 17:41) Rx-Hydrocodone/Apap 5-325 Mg (Rx-Vicodin (09/24/20 18:00) Medications Given in ED Current Medications Medications Dose Ordered Sig/Hima Route Start Time Stop Time Status Last Admin Dose Admin Ceftriaxone Sodium 1000 mg/ Sterile Water 10 ml @ 200 mls/hr ONCE ONCE IV 09/24/20 17:30 09/24/20 17:32 DC 09/24/20 17:50 200 MLS/HR Fentanyl Citrate 50 mcg ONCE ONCE IVP 09/24/20 17:30 09/24/20 17:31 DC 09/24/20 17:49 50 MCG Vital Signs/I&O 09/24/20 17:13 Temp 36.8 Pulse 88 Resp 18 B/P (MAP) 122/75 (91) Pulse Ox 99 O2 Delivery Room Air Departure Impression Primary Impression: Abscess Disposition: 01 HOME, SELF-CARE Condition: Stable Departure-Patient Inst. Decision time for Depature: 17:47 Referrals: [facility] (PCP) Primary Care Physician ANDER ARRIAGA (Family) Primary Care Physician Patient Instructions: Abscess Incision and Drainage (DC) Add. Discharge Instructions: 1. Warm compresses to the area. Continue to take the Bactrim antibiotics. Return to ER tomorrow evening for recheck. Scripts Dapsone (Dapsone) 100 Mg Tablet 100 MG PO DAILY, #10 TAB Prov: JUNE AVERY APRN 09/24/20 Work/School Note: Work Release Form Date Seen in the Emergency Department: Sep 24, 2020 Return to Work: Sep 26, 2020 Images Torso/Trunk 1 - Cellulitis JUNE AVERY APRN Sep 24, 2020 17:22
[2020-09-24] MEDS ORDERED: VANCOMYCIN INJECTION 1,000 MG in NS (IVPB) 250 ML IV SCH (17:30)
[2020-09-24] MEDS ORDERED: cefTRIAXone FOR IV USE 1,000 MG in WATER (STERILE) FOR INJECTION 10 ML IV ONE (17:30)
[2020-09-24] MEDS ORDERED: fentaNYL INJECTION 100 MCG/2 ML AMP IVP ONE (17:30)
[2020-09-24 17:35] LABS: BASOPHILS % (AUTO) 0 % (0-10); EOSINOPHILS # (AUTO) 0.1 10^3/uL (0.0-0.3); EOSINOPHILS % (AUTO) 1 % (0-10); HEMATOCRIT 47 % (40-54); HEMOGLOBIN 15.9 g/dL (13.3-17.7); LYMPHOCYTES # (AUTO) 1.3 10^3/uL (1.0-4.0); LYMPHOCYTES % (AUTO) 16 % (12-44); MEAN CORPUSCULAR HEMOGLOBIN 30 pg (25-34); MEAN CORPUSCULAR HGB CONC 34 g/dL (32-36); MEAN CORPUSCULAR VOLUME 87 fL (80-99); MEAN PLATELET VOLUME 8.8 fL (9.0-12.2); MONOCYTES # (AUTO) 0.9 10^3/uL (0.0-1.0); MONOCYTES % (AUTO) 11 % (0-12); NEUTROPHILS % (AUTO) 72 % (42-75); PLATELET COUNT 340 10^3/uL (130-400); WHITE BLOOD COUNT 8.4 10^3/uL (4.3-11.0)
[2020-09-24] MEDS ORDERED: VANCOMYCIN 1000 MG/VIAL ONE (17:40)
[2020-09-24] MEDS ORDERED: NS (IVPB) 250 ML ONE (17:41)
[2020-09-24 17:44] LABS: CHLORIDE 99 MMOL/L (98-107); POTASSIUM 3.5 MMOL/L (3.6-5.0); SODIUM 137 MMOL/L (135-145)
[2020-09-24 17:45] LABS: CALCIUM 8.8 MG/DL (8.5-10.1)
[2020-09-24 17:46] LABS: GLUCOSE 86 MG/DL (70-105)
[2020-09-24 17:47] LABS: CARBON DIOXIDE 23 MMOL/L (21-32)
[2020-09-24 17:50] LABS: CREATININE SERUM 1.05 MG/DL (0.60-1.30); GFR ESTIMATED > 60
[2020-09-24 17:51] LABS: BUN/CREATININE RATIO 7
[2020-09-24] MEDS ORDERED: DAPS100T3 PO (17:54)
[2020-09-24] MEDS ORDERED: RX-HYDROCODONE/APAP 5/325 MG #4 TAB PK PO PRN (18:00)
--- NOTE | 2020-09-24 18:56 | NUR ---
REPORT TO TAZ
[2020-09-25] MEDS ORDERED: ACHD5005 PO (17:42)
== END 2020-09-24 19:05 | disposition home or self-care (01) ==
LOC: EDUNIT# 17:09 → ER 17:10
DX: L02.211 Cutaneous abscess of abdominal wall (principal); F31.9 Bipolar disorder, unspecified; F20.9 Schizophrenia, unspecified; Z82.61 Family history of arthritis; Z82.49 Family history of ischemic heart disease and other diseases of the circulatory system; Z80.42 Family history of malignant neoplasm of prostate; Z77.22 Contact with and (suspected) exposure to environmental tobacco smoke (acute) (chronic)
CPT/HCPCS: 36415; 80048; 85025; 86141; 87070; 87205

== ENCOUNTER 2020-09-25 17:29 | Emergency (ER) | payer MEDICAID ==
[~2020-09-25] VITALS: Ht 180.3 cm; Wt 63.9 kg
[~2020-09-25 17:29] MED LIST changes: +DAPS100T3 PO
[2020-09-25 17:42] VITALS: BP 129/70
[2020-09-25] MEDS ORDERED: ACHD5005 PO (17:42)
--- NOTE | 2020-09-25 17:43 | ED Suture Removal/Wound Check ---
Suture/Wound Re-check Suture Removal/Wound Recheck : Suture Removal/Wound Recheck: Packing removed General Appearance: WD/WN, no apparent distress Neuro/Tendon: normal sensation, normal motor functions Skin Exam: normal color, warm/dry Physical Exam Vital Signs Capillary Refill : General Appearance: WD/WN, no apparent distress Respiratory: no respiratory distress, no accessory muscle use Gastrointestinal: normal bowel sounds, non tender Extremities: normal range of motion, non-tender Neurologic/Psychiatric: alert, normal mood/affect, oriented x 3 Skin: normal color, warm/dry Skin Problem Character: abscess, other (Overnight there has been significant improvement in the redness which I outlined with a permanent marker yesterday. He states it feels a little bit better. Still no fevers or chills. He is still on the Bactrim.) Departure Impression Primary Impression: Cellulitis Qualified Codes: L03.311 - Cellulitis of abdominal wall Disposition: HOME, SELF-CARE Condition: Stable Departure-Patient Inst. Decision time for Depature: 17:40 Referrals: [facility] (PCP) Primary Care Physician ANDER ARRIAGA (Family) Primary Care Physician Patient Instructions: Wound Care (DC) Add. Discharge Instructions: 1. Continue with the Bactrim antibiotics given by [facility]. You can stop the dapsone that I gave you yesterday. Continue with warm compresses to this area. Change the dressing as needed. Follow-up with your doctor next week for recheck. This is looking a lot better. All discharge instructions reviewed with patient and/or family. Voiced understanding. Work/School Note: Work Release Form Date Seen in the Emergency Department: Sep 25, 2020 Return to Work: Sep 27, 2020 JUNE AVERY APRN Sep 25, 2020 17:43
== END 2020-09-25 18:00 | disposition home or self-care (01) ==
LOC: EDUNIT# 17:29 → ER 17:31
DX: L03.311 Cellulitis of abdominal wall (principal)

== ENCOUNTER 2021-06-20 10:08 | Emergency (ER) | payer MEDICAID ==
[~2021-06-20] VITALS: Ht 177 cm; Wt 66.0 kg
[~2021-06-20 10:08] MED LIST changes: -SULF1TAB35 PO; +SULF1TAB38 PO
[2021-06-20 10:12] VITALS: BP 120/86
[2021-06-20] MEDS ORDERED: KETOROLAC 60 MG/2 ML VIAL IM STA (11:09)
--- NOTE | 2021-06-20 11:09 | ED EENT ---
History of Present Illness General Chief Complaint: Oral/Throat Problems Stated Complaint: ISSUE SWALLOWING, SORE THROAT Nursing Triage Note: PT AMB TO ROOM 10 PT CO OF SORETHROAT SINCE YESTERDAY. PT THINKS MIGHT BE THRUSH, DENIES COUGH, FEVER OR WEAKNESS Source: patient Exam Limitations: no limitations History of Present Illness Date Seen by Provider: Jun 20, 2021 Time Seen by Provider: 10:23 Initial Comments Here with report of sore throat since yesterday. He is concerned that he has thrush because he uses inhalers. Denies cough, fever, chills, weakness, sweating, nausea, vomiting, diarrhea, runny nose or other symptoms. Has not had Covid vaccination. States that he stays at home mostly but does admit that he has to go out in the community to go to the store etc. He has not taken anything for the pain. Timing/Duration: gradual, yesterday Severity: mild Prearrival Treatment: no prearrival treatment Associated Symptoms: No cough, No facial pain/swelling, No fever, No nasal congestion/drainage Allergies and Home Medications Allergies Coded Allergies: No Known Drug Allergies (Unverified , 12/02/14) Home Medications Aripiprazole Lauroxil 1,064 Mg/3.9 Ml Suser.syr, 1,064 MG IM [id number], (Reported) RECIEVES THIS INJECTION FROM [facility]- LAST DOSE 11-12-2019 Cetirizine HCl 10 Mg Tablet, 10 MG PO DAILY PRN for ALLERGY SYMPTOMS, (Reported) Dapsone 100 Mg Tablet, 100 MG PO DAILY Prescribed by: JUNE AVERY on 09/24/20 175 Fluticasone Propionate 9.9 Ml [place].susp, 1 SPRAY NS DAILY PRN for CONGESTION, (Reported) 1 SPRAY EACH NARE DAILY Hydrocodone/Acetaminophen 1 Each Tablet, 1 TAB PO Q6H Prescribed by: JORGE ALBERTO LAFLEUR on 01/03/20 1440 Hydrocodone/Acetaminophen 1 Each Tablet, 1 EACH PO Q4H PRN for PAIN-MODERATE (5- 7) Prescribed by: JUNE AVERY on 09/25/20 174 Levofloxacin 750 Mg Tablet, 750 MG PO DAILY Prescribed by: JORGE ALBERTO LAFLEUR on 01/03/20 1035 Naproxen 500 Mg Tablet.dr, 500 MG PO Q12H PRN for PAIN-MILD (1-4), (Reported) Potassium Gluconate 90 Mg Tablet, 90 MG PO DAILY, (Reported) Patient Home Medication List Home Medication List Reviewed: Yes Review of Systems Review of Systems Constitutional: see HPI; No chills, No fever Eyes: No Symptoms Reported Ears: No Symptoms Reported Nose: see HPI Mouth: see HPI Throat: see HPI, pain; denies swelling, denies discharge Respiratory: No cough, No short of breath Cardiovascular: no symptoms reported Gastrointestinal: no symptoms reported All Other Systems Reviewed Negative Unless Noted: Yes Past Qgphddx-Uapllh-Fxoouj Hx Patient Social History Tobacco Use?: Yes Tobacco type used: Cigarettes Smoking Status: Current Someday Smoker Substance use?: No Alcohol Use?: No Pt feels they are or have been: No Immunizations Up To Date Tetanus Booster (TDap): Unknown Seasonal Allergies Seasonal Allergies: Yes Past Medical History Surgeries: Yes (chest tube) Orthopedic Respiratory: Yes Asthma, Pneumonia Cardiac: No Neurological: No Reproductive Disorders: No Sexually Transmitted Disease: No HIV/AIDS: No Genitourinary: No Gastrointestinal: No Musculoskeletal: No Endocrine: No Loss of Vision: Denies Hearing Impairment: Hard of Hearing Cancer: No Psychosocial: Yes ADD/ADHD, Sleep Difficulties, Bipolar, Schizophrenia Integumentary: Yes Eczema Blood Disorders: No Adverse Reaction/Blood Tranf: No Family Medical History Reviewed Nursing Family Hx Alcoholism Alzheimer's disease Grandparents (Maternal Grandmother) Arthritis 19 MOTHER Grandparents (Maternal Grandmother) Asthma 19 MOTHER Cardiovascular disease Grandparents (Maternal Grandfather-Heart disease) Cataracts Grandparents (Paternal Grandmother Maternal Grandfather) Congenital heart disease 19 MOTHER ([place]oolfe-Parkinson White Syndrome- Congenital Heart Disease) FH: Crohn's disease 19 MOTHER FH: sleep apnea 19 FATHER Glaucoma 19 MOTHER Grandparents (Maternal Grandfather) Headache disorder G8 SISTER (Migraines) Hypertension 19 MOTHER G8 SISTER Myocardial infarction Grandparents (Maternal Grandfather Paternal Grandfather-) Not obtainable due to adoption Grandparents (Maternal Grandmother) Osteoporosis 19 MOTHER Prostate cancer Grandparents (Maternal Grandfather) Psychosocial problem 19 MOTHER (Bipolal Anxiety) Thyroid disease 19 MOTHER (Hypothyroid) Physical Exam Vital Signs Vital Signs - First Documented 06/20/21 10:12 Temp 36.3 Pulse 75 Resp 20 B/P (MAP) 120/86 (97) Pulse Ox 98 Height, Weight, BMI Height: 5'9.00" Weight: 109lbs. 6.0oz. 49.325322ud; 21.00 BMI Method:Stated General Appearance: WD/WN, no apparent distress Eyes: bilateral eye normal inspection, bilateral eye PERRL, bilateral eye EOMI Ears: bilateral ear auricle normal, bilateral ear canal normal, bilateral ear TM normal Nose: other (Mild erythema to the mucous membranes with clear rhinorrhea) Mouth/Throat: other (Pharyngeal erythema with slight uvula swelling. No white patches or any other indications of thrush.) Neck: full range of motion, supple Cardiovascular: regular rate, rhythm, no murmur Respiratory: lungs clear, normal breath sounds Gastrointestinal: non tender, soft Neurologic/Psychiatric: alert, oriented x 3 Skin: normal color, warm/dry Progress/Results/Core Measures Results/Orders Lab Results Laboratory Tests Test 06/20/21 10:20 Range/Units Influenza Type A (RT-PCR) Not Detected Not Detecte Influenza Type B (RT-PCR) Not Detected Not Detecte SARS-CoV-2 RNA (RT-PCR) Not Detected Not Detecte Group A Streptococcus Screen NEGATIVE NEGATIVE My Orders Orders - ZAFAR CRENSHAW MD Rapid Strep A Screen (06/20/21 10:21) Covid 19 Inhouse Test (06/20/21 10:24) Influenza A And B By Pcr (06/20/21 10:24) Ketorolac Injection (Toradol Injection) (06/20/21 11:09) Vital Signs/I&O 06/20/21 10:12 Temp 36.3 Pulse 75 Resp 20 B/P (MAP) 120/86 (97) Pulse Ox 98 Blood Pressure Mean: 97 Progress Progress Note : Progress Note Seen and evaluated. Rapid strep, Covid screen and influenza screen ordered. Monitor patient. 1108: Strep is negative and other 2 are pending. We will initiate Toradol 60 mg IM pending other test. 1119: Covid and influenza negative. We will give Decadron 10 mg IM for the pharyngitis. Conservative treatment outpatient. Discharged home with return precautions. Patient verbali zed understanding instructions and agreement with plan. Departure Impression Primary Impression: Pharyngitis Qualified Codes: J02.9 - Acute pharyngitis, unspecified Disposition: HOME, SELF-CARE Condition: Stable Departure-Patient Inst. Decision time for Depature: 11:19 Referrals: [facility] (PCP) Primary Care Physician ANDER ARRIAGA (Family) Primary Care Physician Patient Instructions: Viral Pharyngitis Add. Discharge Instructions: All discharge instructions reviewed with patient and/or family. Voiced u nderstanding. You may take ibuprofen 600 mg every 8 hours as needed for pain. You may take Tylenol/acetaminophen 1000 mg every 8 hours as needed for pain. Drink plenty of fluids and get plenty of rest. Follow-up with your doctor in a few days for recheck. Return for worse pain, swelling, breathing problems, difficulty with swallowing, fever or other concerns as needed. Your Covid test, influenza screen and strep test were negative today. ZAFAR CRENSHAW MD Jun 20, 2021 11:09
== END 2021-06-20 11:26 | disposition home or self-care (01) ==
LOC: EDUNIT# 10:08 → ER 10:11
DX: J02.9 Acute pharyngitis, unspecified (principal); J45.909 Unspecified asthma, uncomplicated; F31.9 Bipolar disorder, unspecified; F20.9 Schizophrenia, unspecified; F17.210 Nicotine dependence, cigarettes, uncomplicated; Z20.822 Contact with and (suspected) exposure to COVID-19; Z79.899 Other long term (current) drug therapy
CPT/HCPCS: 87430; 87636; 96372; 99285

== ENCOUNTER 2022-03-07 13:03 | Outpatient (CLI) | payer MEDICARE, MEDICAID ==
[~2022-03-07 13:03] MED LIST changes: -RT-ALBUTEROL SULF 2.5 MG/3 ML PRE-MIX VIAL INH ONE
== END 2022-03-07 14:20 ==
LOC: SLEEP 13:03
PROVIDERS: ATTEND Nurse Practitioner Family
DX: G47.10 Hypersomnia, unspecified (principal); G47.61 Periodic limb movement disorder
CPT/HCPCS: G0399

== ENCOUNTER → 2022-03-07 | Outpatient (CLI) | payer MEDICAID ==
[~2022-03-07] MED LIST changes: -ARIP1064 IM; +ARIP10642 IM; +RT-ALBUTEROL SULF 2.5 MG/3 ML PRE-MIX VIAL INH ONE
== END ==
LOC: RT 13:01
PROVIDERS: ATTEND Nurse Practitioner Family
DX: J45.40 Moderate persistent asthma, uncomplicated (principal)
CPT/HCPCS: 94060; 94726; 94729

== ENCOUNTER 2023-06-25 20:15 | Emergency (ER) | payer MEDICARE, MEDICAID ==
[~2023-06-25 20:15] MED LIST changes: +LEVO750T PO; -LEVO750T39 PO
[2023-06-25] MEDS ORDERED: Tetanus/Diphtheria/Pertussis (Acell) ADULT Vaccine 0.5 ML IM ONE (21:30)
[2023-06-25] MEDS ORDERED: LIDOCAINE 1% INJ 10 ML VIAL INJ ONE (21:30)
--- NOTE | 2023-06-25 21:34 | ED EENT ---
History of Present Illness General Chief Complaint: Laceration Stated Complaint: LAC LIP Source: patient Exam Limitations: no limitations (RICKIE HULL) History of Present Illness Date Seen by Provider: Jun 25, 2023 Time Seen by Provider: 21:32 Initial Comments Patient is a 43-year who presents ED with a laceration to his right upper lip. This occurred 1 hour ago. Patient states he opened his truck door and caught his upper lip on the door. This resulted in a laceration through the vermilion border of the right upper lip. Bleeding controlled with direct pressure. Mild dental pain but denies of any loosening of the teeth. Not up-to-date on his tetanus. Denies take anything for pain. (RICKIE HULL) Allergies and Home Medications Allergies Coded Allergies: No Known Drug Allergies (Unverified , 12/02/14) Patient Home Medication List Home Medication List Reviewed: Yes (RICKIE HULL) Amoxicillin/Potassium Clav (Amox Tr-K Clv 875-125 mg Tab) 875 Mg-125 Mg Tablet, 1 EACH PO BID Prescribed by: STEPHANIE MYERS on 06/25/23 2229 Aripiprazole Lauroxil (Aristada) 1,064 Mg/3.9 Ml Suser.syr, 1,064 MG IM [id number], (Reported) Entered as Reported by: JUDY GONZALEZ on 01/01/20 0931 Cetirizine HCl (Zyrtec) 10 Mg Tablet, 10 MG PO DAILY PRN for ALLERGY SYMPTOMS, (Reported) Entered as Reported by: JUDY GONZALEZ on 01/01/20 09 Dapsone (Dapsone) 100 Mg Tablet, 100 MG PO DAILY Prescribed by: JUNE AVERY on 09/24/20 1754 Fluticasone Propionate (Flonase Allergy Relief) 9.9 Ml Atlas.susp, 1 SPRAY NS DAILY PRN for CONGESTION, (Reported) Entered as Reported by: JUDY GONZALEZ on 01/01/20 0929 Hydrocodone/Acetaminophen (Hydrocodone/Acetaminophen 5 MG/325 MG TAB) 1 Each Tablet, 1 TAB PO Q6H Prescribed by: JORGE ALBERTO LAFLEUR on 01/03/20 1440 Hydrocodone/Acetaminophen (Hydrocodone-Acetamin 5-325 mg) 1 Each Tablet, 1 EACH PO Q4H PRN for PAIN-MODERATE (5-7) Prescribed by: JUNE AVERY on 09/25/20 1743 Levofloxacin (Levofloxacin) 750 Mg Tablet, 750 MG PO DAILY Prescribed by: JORGE ALBERTO LAFLEUR on 01/03/20 1035 Naproxen (Naproxen) 500 Mg Tablet.dr, 500 MG PO Q12H PRN for PAIN-MILD (1-4), (Reported) Entered as Reported by: JUDY GONZALEZ on 01/01/20 0929 Potassium Gluconate (Potassium Gluconate) 90 Mg Tablet, 90 MG PO DAILY, (Reported) Entered as Reported by: JUDY GONZALEZ on 01/01/20 0919 Review of Systems Review of Systems Constitutional: No chills, No diaphoresis Eyes: Denies Blurred Vision, Denies Drainage, Denies Decreased Acuity Ears: Denies Dizziness, Denies Pain Nose: denies clots, denies congestion Mouth: denies clots, denies loose teeth; other (upper lip laceration) Throat: denies pain, denies swelling, denies neck stiffness, denies hoarse Respiratory: No cough, No dyspnea on exertion Gastrointestinal: No abdominal pain, No diarrhea, No nausea, No vomiting Musculoskeletal: No back pain, No joint pain Skin: change in color, other (lip laceration) (RICKIE HULL) All Other Systems Reviewed Negative Unless Noted: Yes (RICKIE HULL) Past Ofajdrs-Staohu-Jcngzn Hx Immunizations Up To Date Tetanus Booster (TDap): Unknown (RICKIE HULL) Seasonal Allergies Seasonal Allergies: Yes (RICKIE HULL) Past Medical History Surgeries: Yes (chest tube) Orthopedic Respiratory: Yes Asthma, Pneumonia Cardiac: No Neurological: No Reproductive Disorders: No Sexually Transmitted Disease: No HIV/AIDS: No Genitourinary: No Gastrointestinal: No Musculoskeletal: No Endocrine: No Loss of Vision: Denies Hearing Impairment: Hard of Hearing Cancer: No Psychosocial: Yes ADD/ADHD, Sleep Difficulties, Bipolar, Schizophrenia Integumentary: Yes Eczema Blood Disorders: No Adverse Reaction/Blood Tranf: No (RICKIE HULL) Family Medical History Alcoholism Alzheimer's disease Grandparents (Maternal Grandmother) Arthritis 19 MOTHER Grandparents (Maternal Grandmother) Asthma 19 MOTHER Cardiovascular disease Grandparents (Maternal Grandfather-Heart disease) Cataracts Grandparents (Paternal Grandmother Maternal Grandfather) Congenital heart disease 19 MOTHER (Woolfe-Parkinson White Syndrome- Congenital Heart Disease) FH: Crohn's disease 19 MOTHER FH: sleep apnea 19 FATHER Glaucoma 19 MOTHER Grandparents (Maternal Grandfather) Headache disorder G8 SISTER (Migraines) Hypertension 19 MOTHER G8 SISTER Myocardial infarction Grandparents (Maternal Grandfather Paternal Grandfather-) Not obtainable due to adoption Grandparents (Maternal Grandmother) Osteoporosis 19 MOTHER Prostate cancer Grandparents (Maternal Grandfather) Psychosocial problem 19 MOTHER (Bipolal Anxiety) Thyroid disease 19 MOTHER (Hypothyroid) No Family History of: AIDS Abdominal aortic aneurysm Raphael's disease Aphasia Cancer of mouth Colon cancer Completed stroke Congenital disease Coronary thrombosis Cystic fibrosis Deafness or hearing loss Dementia Diabetes mellitus Drug abuse Dysphasia Fibrocystic disease of breast Gastroenteritis Hypercholesterolemia Infertility Kidney disease Neoplasm Parkinson's disease Respiratory disorder Seizure disorder Severe allergy Tuberculosis Visual disorder Physical Exam Vital Signs Vital Signs - First Documented 06/25/23 21:11 Temp 36.3 Pulse 67 Resp 16 B/P (MAP) 118/86 (97) Pulse Ox 98 O2 Delivery Room Air ([facility]) Height, Weight, BMI Height: 5'9.00" Weight: 109lbs. 6.0oz. [id number]; 21.00 BMI Method:Stated General Appearance: WD/WN, no apparent distress Eyes: bilateral eye normal inspection, bilateral eye PERRL, bilateral eye EOMI Ears: bilateral ear auricle normal, bilateral ear canal normal, bilateral ear TM normal Nose: normal inspection Mouth/Throat: other (Right upper lip laceration. Vermilion border involvement. Through and through laceration. 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 Vermilion border involvement.) (RICKIE HULL) Procedures/Interventions Wound Location: Face (upper lip) Other Wound Location right upper lip Wound Length (cm): 1 Wound's Depth, Shape: superficial, irregular Wound Explored: clean Irrigated w/ Saline (ccs): 200 Betadine Prep?: Yes Anesthesia: 1% Lidocaine Volume Anesthetic (ccs): 1 Suture: Prolene Suture Size: 6-0 Number of Sutures: 5 Layer Closure?: 1 Number Deep Layer Sutures: 9 Sterile Dressing Applied?: Yes Progress 9 of 5-0 Monocryl mucosal, inner lip (RICKIE HULL) Departure Communication (PCP) Patient with a 1 cm laceration to the right upper lip. Vermilion border involvement. Dried blood around the right lateral incisor without any obvious lucency. Possible injury does have some mild pain to this tooth. No maxilla or mandible tenderness. Patient with irregular laceration to the upper lip. Plac ed five 6-0 Prolene sutures and nine 5-0 Monocryl absorbable sutures were placed. Procedure document note. 1% lidocaine was used local and inferior orbital nerve block with improvement of pain. Difficulty to approximate the vermilion border as the laceration was jagged and irregular. Much improvement after repair with sutures. Due to mild dental tenderness and extent of lacerat ion patient was started on Augmentin prophylactically. Updated his tetanus. ENT follow-up in 1 to 2 weeks for reevaluation. Patient will need the Prolene sutures removed in 6 to 8 days. If increased redness or swelling to return back to ED. Follow-up with a dentist for evaluation of the teeth. No obvious lucency noted. (RICKIE HULL) Impression Primary Impression: Lip laceration Disposition: 01 HOME, SELF-CARE Condition: Stable Departure-Patient Inst. Decision time for Depature: 22:29 (RICKIE HULL) Referrals: [facility] (PCP) Primary Care Physician ANDER ARRIAGA (Family) Primary Care Physician GLORIA CARRANZA MD Patient Instructions: Laceration Repair With Stitches ED Add. Discharge Instructions: Remove sutures in 7 days. Take antibiotics as prescribed. Anti-inflammatories for pain. If increased redness or swelling to return back to ED All discharge instructions reviewed with patient and/or family. Voiced understanding. Scripts Amoxicillin/Potassium Clav (Amox Tr-K Clv 875-125 mg Tab) 875 Mg-125 Mg Tablet 1 EACH PO BID for 7 Days, #14 TAB Prov: RICKIE HULL 06/25/23 ATTENDING PHYSICIAN NOTE: I WAS PHYSICALLY PRESENT ER PHYSICIAN, BUT I WAS NOT INVOLVED IN ANY DECISION MAKING OR ANY CARE OF THIS PATIENT AND I AM NOT COLLABORATING PHYSICIAN. (SHASHANK POST DO) RICKIE HULL Jun 25, 2023 21:34 SHASHANK POST DO Jun 26, 2023 19:06
[2023-06-25] MEDS ORDERED: AMOX1TAB12 PO (22:29)
[2023-06-25] MEDS ORDERED: AMOXICILLIN/Clavulanate 875 MG TABLET PO STA (22:30)
[2023-06-25 22:37] VITALS: BP 118/86
== END 2023-06-25 22:37 | disposition home or self-care (01) ==
LOC: EDUNIT# 20:15 → ER 20:18
DX: S01.511A Laceration without foreign body of lip, initial encounter (principal); Z28.310 Unvaccinated for COVID-19; Z23 Encounter for immunization; W23.0XXA Caught, crushed, jammed, or pinched between moving objects, initial encounter
CPT/HCPCS: 12051; 90715

== ENCOUNTER 2023-07-03 14:34 | Emergency (ER) | payer MEDICARE, MEDICAID ==
[~2023-07-03] VITALS: Ht 175 cm; Wt 63.0 kg
[~2023-07-03 14:34] MED LIST changes: +AMOX1TAB12 PO
[2023-07-03 14:44] VITALS: BP 124/80
== END 2023-07-03 14:56 | disposition home or self-care (01) ==
LOC: EDUNIT# 14:34 → ER 14:35
DX: Z48.02 Encounter for removal of sutures (principal)